=== PATIENT | male | born 1935 | race Caucasian/White ===

== ENCOUNTER 2019-01-08 23:10 | Inpatient (IN) | payer MEDICARE, BC ==
[2019-01-08 23:37] LABS: VENOUS BLOOD HCO3 27.3 mmol/L (20-32); VENOUS BLOOD PCO2 55.4 mmHg (35-63); VENOUS BLOOD PH 7.31 (7.30-7.42)
[2019-01-08 23:41] LABS: INTERNATIONAL RATION (INR) 1.04; PROTHROMBIN TIME 13.6 SEC (11.4-15.4)
[2019-01-08 23:48] LABS: ABSOLUTE LYMPHOCYTES (AUTO) 0.3 10^3/uL (0.5-4.7); ABSOLUTE MONOCYTES (AUTO) 0.3 10^3/uL (0.1-1.4); ABSOLUTE NEUT (AUTO) 5.5 10^3/uL (1.7-8.2); BASOPHILS % (AUTO) 0.3 % (0-2); HEMATOCRIT 40.8 % (37.9-51.0); HEMOGLOBIN 13.8 g/dL (13.5-17.0); LYMPHOCYTES % (AUTO) 5.1 % (13-45); MEAN CORPUSCULAR HEMOGLOBIN 31.7 pg (27.0-33.4); MEAN CORPUSCULAR HGB CONC 33.9 g/dL (32.0-36.0); MEAN CORPUSCULAR VOLUME 94 fl (80-97); RED BLOOD COUNT 4.36 10^6/uL (4.35-5.55); RED CELL DISTRIBUTION WIDTH 14.1 % (11.5-14.0); SEGMENTED NEUTROPHILS % (AUTO) 89.6 % (42-78); TOTAL CELLS COUNTED % (AUTO) 100 %; WHITE BLOOD COUNT 6.2 10^3/uL (4.0-10.5)
[2019-01-08 23:50] LABS: ALKALINE PHOSPHATASE 62 U/L (38-126); ANION GAP 13 (5-19); ASPARTATE AMINO TRANSFERASE 51 U/L (17-59); BILIRUBIN,DIRECT 0.2 mg/dL (0.0-0.4); BILIRUBIN,TOTAL 0.7 mg/dL (0.2-1.3); BLOOD UREA NITROGEN 31 mg/dL (7-20); CALCIUM 8.8 mg/dL (8.4-10.2); CARBON DIOXIDE 27 mmol/L (22-30); CHLORIDE 98 mmol/L (98-107); GLUCOSE 262 mg/dL (75-110); POTASSIUM 3.9 mmol/L (3.6-5.0); TOTAL PROTEIN 6.9 g/dL (6.3-8.2)
[2019-01-09 00:11] LABS: PLATELET COUNT 90 10^3/uL (150-450)
--- NOTE | 2019-01-09 00:18 | ER Document Report ---
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 They said a few d/a he s tarted having URI sx, predominantly productive cough. says he began self- prescribed z-pack 2 d/a, but started having fevers anyway. but it was last night fam members noticed strange behavior i.e. pt seemed unsteady on feet, poor appetite, intermittent periods of not making sense. last night he needed significant help standing from bathtub & getting out. He has had 2 falls in last 2 nights which says he seemed to slump to his butt when trying 2 transfer from bed to walk to the bathroom. also says he usually only takes One oxycodone a day (rx'd by his [facility] docs), but that in last few days he's had more pain and has taken two times a day she thinks. times of confusion they say instead of correctly responds to ?'s, he'll start talking about another topic briefly then seems to lose attention. no other falls/direct head impacts, no blood thinner use. deny any (regular) etoh use, any new (otc) meds. there had been no complaints of headache, vision change, witnessed facial droop or focal neuro deficits, urinary changes, bowel changes, complaints of abd pain before he became more increasingly confused. - Related Data Allergies/Adverse Reactions: No Known Allergies Allergy (Unverified 01/08/19 23:42) Home Medications: oxycodone (unknown dose) Past Medical History - General Information source: Relative - see hpi - Social History Smoking Status: Never Smoker Family History: Reviewed & Not Pertinent Patient has suicidal ideation: No Patient has homicidal ideation: No Past Surgical History: Reports: Hx Orthopedic Surgery - back and ankle Review of Systems - Review of Systems Constitutional: See HPI, Fever, Weakness. denies: Chills, Diaphoresis, Recent illness EENT: See HPI Cardiovascular: denies: Chest pain, Orthopnea, Syncope, Dizziness, Paroxysmal Nocturnal Dysp Respiratory: Cough, Short of breath. denies: Wheezing Gastrointestinal: No symptoms reported, See HPI Genitourinary: No symptoms reported, See HPI Male Genitourinary: No symptoms reported, See HPI Musculoskeletal: No symptoms reported, See HPI, Back pain Skin: No symptoms reported. denies: Change in color, Rash Hematologic/Lymphatic: denies: Easy bleeding, Easy bruising Neurological/Psychological: Confusion, Weakness. denies: Depression, Anxiety, Hallucinations, Paralysis, Seizure, Lost consciousness, Headaches Physical Exam - Vital signs Vitals: Resp 18 01/08/19 23:12 Notes: pt initially ~92-94% on 1L spo2. - General Notes: fully alert can answer appropriately initially then starts mumbling and playing w/ spo2/cardiac wires. at one point trying to get out of bed ultimatly redirected by fam members, mild tachypnea on 1L nc no other no other noted distress. - HEENT Head: Normocephalic, Atraumatic. No: Tenderness Eyes: No: Pale conjunctiva, Periorbital ecchymosis, Scleral icterus Conjunctiva: No: Injected Extraocular movements intact: Yes Pupils: PERRL Nerve palsy: No Visual davenport normal: Yes - grossly 2 confrontation Tympanic membrane: No: Bulging, Injected, Purulent effusion Sinus: No: Frontal, Mastoid, Tenderness Nasal: Normal Mouth/Lips: Normal Mucous membranes: Dry Pharynx: Normal Neck: Normal, Supple - Respiratory Respiratory status: Tachypnea. No: Agonal respirations, Depressed respirations, Pursed lip breathing, Retractions, Tripod position Chest status: Nontender. No: Ecchymosis, Accessory muscle use, Prolonged expirations, Splinting Breath sounds: Nonproductive cough, Rhonchi. No: Decreased air movement, Wheezing Chest palpation: Normal - Cardiovascular Rhythm: Regular Heart sounds: S1 appreciated, S2 appreciated Murmur: No Gallop: None auscultated Pulses: Normal: Radial, Dorsalis pedis Normal capillary refill: Yes - Abdominal Inspection: Normal Distension: No distension Tenderness: Nontender, McBurney's point. No: Fabian's sign, Guarding, Rebound Organomegaly: No organomegaly - Back Back: No: Deformity/step-off, CVA tenderness, Vertebra tenderness, Wounds - Extremities General upper extremity: Normal inspection General lower extremity: Normal inspection - Neurological Cognition: Inattentive May Coma Scale Eye Opening: Spontaneous Ranson Coma Scale Verbal: Inappropriate Ranson Coma Scale Motor: Obeys Commands May Coma Scale Total: 13 Speech: No: Dysarthria, Expressive aphasia, Receptive aphasia Cranial nerves: No: Facial palsy, Gaze palsy Cerebellar coordination: Other - unable to fully follow commands for assessment f to n, h to [place], didn't ambulate pt 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 No: Pronator drift - Psychological Associated symptoms: Restlessness. No: Combative Course - Re-evaluation Re-evalutation: 01/10/19 20:03 inc to 2L at time i examined =>~98%. was given acetaminophen for fever by [facility], but i could not find that ems had reported any hypoxia or gave any other Rxs 01/10/19 20:04 - Vital Signs Vital signs: Temp Pulse Resp BP Pulse Ox 97.6 F 71 17 126/74 H 95 01/10/19 17:00 01/10/19 17:00 01/10/19 17:00 01/10/19 17:00 01/10/19 17:00 - Laboratory Result Diagrams: 01/10/19 04:43 01/10/19 04:43 Laboratory results interpreted by me: 01/08/19 01/08/19 01/08/19 23:15 23:15 23:15 RDW 14.1 H Plt Count 90 L Lymph % (Auto) 5.1 L Absolute Lymphs (auto) 0.3 L Seg Neutrophils % 89.6 H BUN 31 H Creatinine 1.94 H Est GFR ( Amer) 40 L Est GFR (MDRD) Non-Af 33 L Glucose 262 H POC Glucose Lactic Acid (Sepsis) 2.8 H 01/08/19 01/09/19 23:39 02:37 RDW Plt Count Lymph % (Auto) Absolute Lymphs (auto) Seg Neutrophils % BUN Creatinine Est GFR ( Amer) Est GFR (MDRD) Non-Af Glucose POC Glucose 266 H Lactic Acid (Sepsis) 3.1 H - Diagnostic Test Radiology reviewed: Image reviewed, Reports reviewed Radiology results interpreted by me: 01/10/19 20:07 my interpretatino of 2v cxr is on lateral view basilar consolidation present c/f infiltrate and PNA - EKG Interpretation by Me Additional EKG results interpreted by me: 01/09/19 00:18 EKG reviewed is normal sinus rhythm time as [address] is borderline prolonged but within normal limits at 200 potentially is borderline axis deviation to the left there is no prior for comparison no ST elevations depressions or other patterns of ischemia voltage within normal limits will just wait to interview patient myself very nonspecific but inferior T wave flattening without reciprocal change but will consider any type of ACS in this older gentleman with delirium - Transfer of Care Notes: 01/10/19 20:09 dr bullard accepted for med floor adm. also gave 600 ibu for cont fever (102.5 under tongue), and ctx 1g iv for suspected source of CAP. Discharge - Discharge Clinical Impression: Delirium due to another medical condition, acute, mixed level of activity, suspected pneumonia, Acute respiratory failure with hypoxia, Multiple falls Fever Qualifiers: Encounter type: initial encounter Chronic back pain Qualifiers: Back pain location: back pain in unspecified location Back pain laterality: unspecified Qualified Code(s): M54.9 - Dorsalgia, unspecified Condition: Fair Disposition: ADMITTED INPATIENT Admitting Provider: Morro (Hospitalist) Unit Admitted: Medical Floor
--- NOTE | 2019-01-09 00:56 | RADIOLOGY REPORT (SQ) ---
CLINICAL HISTORY: cough, SOB COMPARISON: None. TECHNIQUE: XR CHEST 2 VIEWS 01/08/2019 11:28 PM TRAIN ATTENDANT FINDINGS: The heart is enlarged. Lungs are clear without consolidation, atelectasis, mass or edema. There is no pleural effusion. There is no pneumothorax. Extensive thoracolumbar fusion was performed. IMPRESSION: Clear lungs.
[2019-01-09] MEDS ORDERED: RINGERS SOLUTION,LACTATED 1,000 ML IV ONE (01:06)
[2019-01-09] MEDS ORDERED: CEFTRIAXONE INJ 1000 MG VIAL IV ONE (01:08)
[2019-01-09 01:55] LABS: A TYPE INFLUENZA AG NEGATIVE (NEGATIVE); B INFLUENZA AG NEGATIVE (NEGATIVE)
[2019-01-09] MEDS ORDERED: IBUPROFEN 600 MG TABLET PO ONE (02:03)
[2019-01-09] MEDS ORDERED: ONDANSETRON HCL INJ/PF 4 MG/2 ML SDV IV PRN (02:42)
[2019-01-09] MEDS ORDERED: MAG HYDROX/AL HYDROX/SIMETH SUSP 30 ML UDCUP PO PRN (02:42)
[2019-01-09] MEDS ORDERED: LEVALBUTEROL HCL NEB 0.63 MG/3 ML AMPUL NEB PRN (02:42)
[2019-01-09] MEDS ORDERED: RINGERS SOLUTION,LACTATED 1,000 ML IV PRN (02:42)
[2019-01-09] MEDS ORDERED: MAGNESIUM HYDROXIDE SUSP 30 ML UDCUP PO PRN (02:42)
[2019-01-09] MEDS ORDERED: GLUCAGON,HUMAN RECOMB 1 MG INJ IM PRN (02:49)
[2019-01-09] MEDS ORDERED: MORPHINE SULFATE 10 MG/ML INJ IV PRN ×3 (02:49)
[2019-01-09] MEDS ORDERED: DEXTROSE 40% GEL 15 GM TUBE PO PRN ×2 (02:49)
[2019-01-09] MEDS ORDERED: DEXTROSE 50%-WATER 25 GM/50 ML DISP.SYRIN IV PRN ×2 (02:49)
[2019-01-09] MEDS ORDERED: ACETAMINOPHEN 325 MG TABLET PO PRN (02:49)
[2019-01-09] MEDS ORDERED: LORAZEPAM INJ 2 MG/1 ML VIAL IV PRN (02:50)
[2019-01-09] MEDS ORDERED: IBUPROFEN 800 MG TABLET PO PRN (02:51)
[2019-01-09] MEDS ORDERED: AZITHROMYCIN INJ 500 MG VIAL IV PRN (03:00)
--- NOTE | 2019-01-09 03:41 | PDOC H&P ---
History of Present Illness Admission Date/PCP: 01/09/2019 02:22 No local PCP Patient complains of: Cough History of Present Illness: EVELYNE MUNROE is a 83 year old male who presented to the emergency room with a 5-day history of a cough. He and his family admit to a progressively worsening cough with associated dyspnea, worsening on exertion, over the last 3 days with the development of an associated fever and an accompanying progressively worsening delirium over the last 72 hours. They admit to associated decreased oral intake, off-balance falls and generalized weakness over the last 48 hours. 3 days ago he initiated self treatment with Zithromax. They deny other associated or accompanying signs and symptoms. They deny prior similar episodes. Have not identified any additional aggravating or ameliorating factors for his cough. In the emergency room he was found to have a mild hypoxia with an O2 sat in the low 90s on 1 L of oxygen per nasal cannula and a low-grade fever. He was subsequently admitted to the hospital for further evaluation and treatment. Past Medical History Cardiac Medical History: Denies: Coronary Artery Disease, Myocardial Infarction, Hyperlipidema, Hypertension Pulmonary Medical History: Denies: Asthma, Chronic Obstructive Pulmonary Disease (COPD) EENT Medical History: Reports: Nose - Seasonal allergic rhinitis Denies: Cataracts, Ears Neurological Medical History: Denies: Hemorrhagic CVA, Ischemic CVA, Seizures Endocrine Medical History: Denies: Diabetes Mellitus Type 1, Diabetes Mellitus Type 2, Hyperthyroidism, Hypothyroidism, Obesity Renal/ Medical History: Reports: Nephrolithiasis Denies: Chronic Kidney Disease Malignancy Medical History: Reports: None GI Medical History: Denies: Cirrhosis, Crohn's Disease, Hepatitis, Ulcerative Colitis Musculoskeltal Medical History: Reports: Arthritis - Severe spinal arthritis, osteoarthritis of multiple joints, Other - Chronic pain due to arthritis Denies: Gout Skin Medical History: Denies: Eczema, Psoriasis Psychiatric Medical History: Denies: Alcohol Dependency, Substance Abuse, Tobacco Dependency Traumatic Medical History: Reports: None Hematology: Denies: Anemia, Bleeding Tendencies Infectious Medical History: Reports: None Past Surgical History Past Surgical History: Reports: Orthopedic Surgery - Back surgeries x5, bilateral knee surgeries and left ankle surgery Social History Information Source: Patient, Relative Lives with: Spouse/Significant other Smoking Status: Never Smoker Electronic Cigarette use?: No Frequency of Alcohol Use: None Hx Recreational Drug Use: No Drugs: None Hx Prescription Drug Abuse: No - Advance Directive Resuscitation Status: Full Code Surrogate healthcare decision maker:: Raya Munroe Family History Family History: COPD, Malignancy. denies: DM Parental Family History Reviewed: Yes Children Family History Reviewed: No Sibling(s) Family History Reviewed.: Yes Medication/Allergy Allergies/Adverse Reactions: No Known Allergies Allergy (Unverified 01/08/19 23:42) Review of Systems Constitutional: PRESENT: as per HPI, anorexia, fever(s). ABSENT: chills, headache(s) Eyes: ABSENT: visual disturbances, other - Eye pain Ears: ABSENT: hearing changes, other - Ear pain Nose, Mouth, and Throat: ABSENT: mouth pain, sore throat Cardiovascular: PRESENT: as per HPI, dyspnea on exertion. ABSENT: chest pain Respiratory: PRESENT: as per HPI, cough, dyspnea Gastrointestinal: PRESENT: other - Decreased oral intake. ABSENT: abdominal pain, constipation, diarrhea, nausea, vomiting Genitourinary: ABSENT: dysuria, hematuria Musculoskeletal: PRESENT: back pain - Chronic. ABSENT: joint swelling, muscle weakness Integumentary: ABSENT: pruritus, rash Neurological: PRESENT: as per HPI, confusion - Delirium, other - Of balance falls. ABSENT: convulsions, focal weakness, memory loss, syncope Psychiatric: ABSENT: anxiety, depression Endocrine: ABSENT: cold intolerance, heat intolerance Hematologic/Lymphatic: ABSENT: easy bleeding, easy bruising Allergic/Immunologic: ABSENT: seasonal rhinorrhea Physical Exam Vital Signs: Temp Pulse Resp BP Pulse Ox 102.5 F H 102 H 22 H 102/55 L 96 01/09/19 01:32 01/08/19 23:15 01/09/19 02:07 01/09/19 02:07 01/09/19 02:07 Intake & Output 01/07/19 01/08/19 01/09/19 23:59 23:59 23:59 Weight 89 kg General appearance: PRESENT: no acute distress, cooperative Head exam: PRESENT: atraumatic, normocephalic Eye exam: PRESENT: conjunctiva pink. ABSENT: conjunctival injection, scleral icterus Ear exam: PRESENT: normal external ear exam. ABSENT: bleeding, drainage Mouth exam: PRESENT: dry mucosa, neck supple Neck exam: ABSENT: thyromegaly, tracheal deviation Respiratory exam: PRESENT: clear to auscultation jason, symmetrical, unlabored Cardiovascular exam: PRESENT: RRR. ABSENT: clicks, gallop, rubs Pulses: PRESENT: normal radial pulses, normal dorsalis pedis pul Vascular exam: PRESENT: normal capillary refill. ABSENT: pallor GI/Abdominal exam: PRESENT: normal bowel sounds, soft Rectal exam: PRESENT: deferred Extremities exam: ABSENT: joint swelling, pedal edema Musculoskeletal exam: ABSENT: deformity, dislocation Neurological exam: PRESENT: alert, altered - Easily confused and distracted, CN II-XII grossly intact Psychiatric exam: PRESENT: appropriate affect, normal mood Skin exam: PRESENT: dry, intact, warm. ABSENT: jaundice, rash, urticaria Results Laboratory Results: 01/08/19 23:15 01/08/19 23:15 01/08/19 01/08/19 01/08/19 23:15 23:15 23:15 WBC 6.2 RBC 4.36 Hgb 13.8 Hct 40.8 MCV 94 MCH 31.7 MCHC 33.9 RDW 14.1 H Plt Count 90 L Seg Neutrophils % 89.6 H VBG pH 7.31 VBG pCO2 55.4 VBG HCO3 27.3 VBG Base Excess 0 Sodium 138.4 Potassium 3.9 Chloride 98 Carbon Dioxide 27 Anion Gap 13 BUN 31 H Creatinine 1.94 H Est GFR ( Amer) 40 L Glucose 262 H Calcium 8.8 Total Bilirubin 0.7 AST 51 Alkaline Phosphatase 62 Total Protein 6.9 Albumin 4.0 01/08/19 23:15 Troponin I 0.015 Impressions: Chest X-Ray 01/08/19 23:28 IMPRESSION: Clear lungs. Assessment and Plan - Diagnosis (1) Acute febrile illness Is this a current diagnosis for this admission?: Yes (2) Acute respiratory failure with hypoxia Is this a current diagnosis for this admission?: Yes (3) Nonproductive cough Is this a current diagnosis for this admission?: Yes (4) Delirium due to another medical condition, acute, hypoactive Is this a current diagnosis for this admission?: Yes (5) Multiple falls Is this a current diagnosis for this admission?: Yes (6) Elevated lactic acid level Is this a current diagnosis for this admission?: Yes (7) SIRS (systemic inflammatory response syndrome) Is this a current diagnosis for this admission?: Yes (8) Chronic back pain Qualifiers: Back pain location: back pain in unspecified location Back pain laterality: unspecified Qualified Code(s): M54.9 - Dorsalgia, unspecified; G89.29 - Other chronic pain Is this a current diagnosis for this admission?: Yes (9) Elevated random blood glucose level Is this a current diagnosis for this admission?: Yes - Plan Summary Summary: Patient will be admitted to a general medical bed and treated with IV fluids and antibiotic therapy including Rocephin and azithromycin. He will be monitored closely on a clinical basis and will be evaluated with daily metabolic profiles and CBCs. He will receive supplemental oxygen via nasal cannula as required to maintain an O2 sat greater than 93%. Oxygen saturations will be checked frequently. His fever be treated with Tylenol as required. His delirium will be treated with Ativan 1 mg IV every 4 hours as needed for agitation or anxiety. Morphine sulfate 2 to 4 mg IV every 2 hours will be administered on as-needed basis for pain control utilizing a sliding scale for his chronic back pain. Hemoglobin A1c will be obtained and a diabetic diet will be ordered. The patient will be treated with Accu-Cheks before meals and at bedtime with sliding scale insulin for hyperglycemia and a hypoglycemic protocol in place. - Time Time Spent with patient: 25-34 minutes Medications reviewed and adjusted accordingly: Yes Anticipated discharge: Home - Inpatient Certification Based on my medical assessment, after consideration of the patient's comorbidities, presenting symptoms, or acuity I expect that the services needed warrant INPATIENT care.: Yes I certify that my determination is in accordance with my understanding of Medicare's requirements for reasonable and necessary INPATIENT services [42 CFR 412.3e].: Yes Medical Necessity: Need Close Monitoring Due to Risk of Patient Decompensation, Need For IV Fluids, Need for Neurological Checks, Need for IV Antibiotics, Risk of Complication if Not Cared For in Hospital, Risk of Diagnosis Which Will Require Inpatient Eval/Care/Monitoring
[2019-01-09] MEDS ORDERED: AZITHROMYCIN 500 MG in DEXTROSE 5%-WATER 250 ML IV SCH ×2 (06:00→08:00)
[2019-01-09] MEDS: HEPARIN SOD (PORCINE) 5,000 UNIT/ML 1 ML VIAL SUBCUT SCH ×3 (07:04→22:08)
[2019-01-09 07:05] LABS: VENOUS BLOOD BASE EXCESS -2.7 mmol/L; VENOUS BLOOD HCO3 22.6 mmol/L (20-32); VENOUS BLOOD PCO2 40.9 mmHg (35-63); VENOUS BLOOD PH 7.36 (7.30-7.42)
--- NOTE | 2019-01-09 08:38 | Progress Note ---
Provider Note Provider Note: 01/09/2019-patient admitted early a.m. I reviewed labs and assessed patient. I will continue to follow make change plan of care based on patient needs.
[2019-01-09] MEDS: DOCUSATE SODIUM 100 MG CAPSULE PO SCH ×2 (09:33→18:34)
[2019-01-09] MEDS: AZITHROMYCIN 500 MG in DEXTROSE 5%-WATER 250 ML IV SCH (09:33)
[2019-01-09] MEDS: FAMOTIDINE 20 MG TABLET PO SCH ×2 (09:33→22:12)
[2019-01-09] MEDS: INSULIN REG, HUMAN 100 UNIT/ML 3 ML VIAL (PYX) SUBCUT SCH ×4 (09:36→22:11)
[2019-01-09] MEDS ORDERED: NORMAL SALINE 1000 ML 500 ML IV PRN (12:08)
[2019-01-09] MEDS ORDERED: NORMAL SALINE 500 ML IV PRN (12:09)
[2019-01-09] MEDS ORDERED: NORMAL SALINE 1000 ML 1,000 ML IV PRN ×2 (12:10→17:19)
[2019-01-09] MEDS: CEFTRIAXONE 1 GM/D5W RTU 1 GM/50 ML RTUPB IV SCH (22:13)
[2019-01-10] MEDS: HEPARIN SOD (PORCINE) 5,000 UNIT/ML 1 ML VIAL SUBCUT SCH ×3 (05:18→21:19)
[2019-01-10 05:21] LABS: HEMATOCRIT 36.2 % (37.9-51.0); HEMOGLOBIN 12.6 g/dL (13.5-17.0); MEAN CORPUSCULAR HEMOGLOBIN 31.9 pg (27.0-33.4); MEAN CORPUSCULAR HGB CONC 34.7 g/dL (32.0-36.0); MEAN CORPUSCULAR VOLUME 92 fl (80-97); RED BLOOD COUNT 3.93 10^6/uL (4.35-5.55); WHITE BLOOD COUNT 8.1 10^3/uL (4.0-10.5)
[2019-01-10 05:24] LABS: VENOUS BLOOD BASE EXCESS -2.1 mmol/L; VENOUS BLOOD HCO3 22.7 mmol/L (20-32); VENOUS BLOOD PCO2 39.6 mmHg (35-63); VENOUS BLOOD PH 7.38 (7.30-7.42)
[2019-01-10 05:43] LABS: ALKALINE PHOSPHATASE 57 U/L (38-126); ANION GAP 8 (5-19); ASPARTATE AMINO TRANSFERASE 83 U/L (17-59); BILIRUBIN,DIRECT 0.3 mg/dL (0.0-0.4); BILIRUBIN,TOTAL 0.5 mg/dL (0.2-1.3); BLOOD UREA NITROGEN 30 mg/dL (7-20); CALCIUM 8.1 mg/dL (8.4-10.2); CARBON DIOXIDE 25 mmol/L (22-30); CHLORIDE 108 mmol/L (98-107); GLUCOSE 91 mg/dL (75-110); POTASSIUM 3.4 mmol/L (3.6-5.0); TOTAL PROTEIN 5.7 g/dL (6.3-8.2)
[2019-01-10 05:50] LABS: PLATELET COUNT 81 10^3/uL (150-450)
[2019-01-10] MEDS ORDERED: OXYCODONE HCL IR 5 MG TABLET PO PRN (08:47)
[2019-01-10] MEDS ORDERED: POTASSIUM CHLORIDE 10 MEQ TABLET.ER PO ONE (08:51)
--- NOTE | 2019-01-10 08:55 | PDOC PROGRESS REPORT ---
Subjective Progress Note for:: 01/10/19 Subjective:: 01/10/2019-right hip pain Reason For Visit: COUGH,FEVER,DELIRIUM,ELEVATED LACTIC ACID,SIRS Physical Exam Vital Signs: Temp Pulse Resp BP Pulse Ox 98.4 F 65 16 89/49 L 96 01/09/19 16:23 01/09/19 18:43 01/09/19 18:43 01/09/19 16:23 01/10/19 04:22 Intake & Output 01/09/19 01/10/19 01/11/19 06:59 06:59 06:59 Intake Total 1300 4286 Output Total 1050 Balance 1300 3236 Weight 88.6 kg 92.8 kg General appearance: PRESENT: no acute distress, well-developed, well-nourished Neck exam: ABSENT: carotid bruit, JVD, lymphadenopathy, thyromegaly Respiratory exam: PRESENT: decreased breath sounds, symmetrical, unlabored Cardiovascular exam: PRESENT: RRR. ABSENT: diastolic murmur, rubs, systolic murmur Pulses: PRESENT: +1 pedal pulses bilateral Vascular exam: PRESENT: normal capillary refill GI/Abdominal exam: PRESENT: normal bowel sounds, soft. ABSENT: distended, guarding, mass, organolmegaly, rebound, tenderness Extremities exam: PRESENT: full ROM. ABSENT: calf tenderness, clubbing, pedal edema Neurological exam: PRESENT: alert, awake, oriented to person, oriented to place, oriented to time, oriented to situation, CN II-XII grossly intact. ABSENT: motor sensory deficit Psychiatric exam: PRESENT: appropriate affect, normal mood. ABSENT: homicidal ideation, suicidal ideation Skin exam: PRESENT: dry, intact, warm. ABSENT: cyanosis, rash Results Laboratory Results: 01/10/19 04:43 01/10/19 04:43 01/09/19 01/09/19 01/10/19 08:08 11:32 04:43 WBC 8.1 RBC 3.93 L Hgb 12.6 L Hct 36.2 L MCV 92 MCH 31.9 MCHC 34.7 RDW 14.0 Plt Count 81 L VBG pH VBG pCO2 VBG HCO3 VBG Base Excess Sodium Potassium Chloride Carbon Dioxide Anion Gap BUN Creatinine Est GFR ( Amer) Glucose Lactic Acid 1.2 1.5 Calcium Magnesium Total Bilirubin AST Alkaline Phosphatase Total Protein Albumin 01/10/19 01/10/19 04:43 04:43 WBC RBC Hgb Hct MCV MCH MCHC RDW Plt Count VBG pH 7.38 VBG pCO2 39.6 VBG HCO3 22.7 VBG Base Excess -2.1 Sodium 140.9 Potassium 3.4 L Chloride 108 H Carbon Dioxide 25 Anion Gap 8 BUN 30 H Creatinine 1.48 H Est GFR ( Amer) 55 L Glucose 91 Lactic Acid Calcium 8.1 L Magnesium 1.7 Total Bilirubin 0.5 AST 83 H Alkaline Phosphatase 57 Total Protein 5.7 L Albumin 3.0 L 01/08/19 23:15 Troponin I 0.015 Impressions: Chest X-Ray 01/08/19 23:28 IMPRESSION: Clear lungs. Assessment and Plan - Diagnosis (1) Acute febrile illness Is this a current diagnosis for this admission?: Yes Plan: 01/10/2019-resolved at this time looks like mostly related to viral infection. Continue to follow. (2) Acute respiratory failure with hypoxia Is this a current diagnosis for this admission?: Yes Plan: 01/10/2019-resolved stable continue to follow patient on 2 L nasal cannula able speak in full sentences. (3) Chronic back pain Qualifiers: Back pain location: back pain in unspecified location Back pain laterality: unspecified Qualified Code(s): M54.9 - Dorsalgia, unspecified; G89.29 - Other chronic pain Is this a current diagnosis for this admission?: Yes Plan: 01/10/2019-continue OxyIR 10 mg p.o. twice daily from home (4) Delirium due to another medical condition, acute, hypoactive Is this a current diagnosis for this admission?: Yes Plan: 01/10/2019-resolved continue to follow (5) Elevated lactic acid level Is this a current diagnosis for this admission?: Yes Plan: 01/10/2019-resolved stable (6) Elevated random blood glucose level Is this a current diagnosis for this admission?: Yes Plan: 01/10/2019-stable continue to follow (7) Multiple falls Is this a current diagnosis for this admission?: Yes Plan: 01/10/2019-. Had multiple falls at home complains of right hip pain. Continue oxycodone IR from home will obtain a x-ray of the right hip to rule out any pathology. (8) Nonproductive cough Is this a current diagnosis for this admission?: Yes Plan: 01/01/2019-stable continue to follow (9) SIRS (systemic inflammatory response syndrome) Is this a current diagnosis for this admission?: Yes Plan: 01/10/2019-resolved stable follow - Plan Summary Summary: Patient will be admitted to a general medical bed and treated with IV fluids and antibiotic therapy including Rocephin and azithromycin. He will be monitored closely on a clinical basis and will be evaluated with daily metabolic profiles and CBCs. He will receive supplemental oxygen via nasal cannula as required to maintain an O2 sat greater than 93%. Oxygen saturations will be checked jhon quently. His fever be treated with Tylenol as required. His delirium will be treated with Ativan 1 mg IV every 4 hours as needed for agitation or anxiety. Morphine sulfate 2 to 4 mg IV every 2 hours will be administered on as-needed basis for pain control utilizing a sliding scale for his chronic back pain. Hemoglobin A1c will be obtained and a diabetic diet will be ordered. The patient will be treated with Accu-Cheks before meals and at bedtime with sliding scale insulin for hyperglycemia and a hypoglycemic protocol in place. - Time Time Spent with patient: 15-24 minutes - Inpatient Certification Based on my medical assessment, after consideration of the patient's comorbidities, presenting symptoms, or acuity I expect that the services needed warrant INPATIENT care.: Yes I certify that my determination is in accordance with my understanding of Medicare's requirements for reasonable and necessary INPATIENT services [42 CFR 412.3e].: Yes Medical Necessity: Significant Comorbidiites Make Outpatient Treatment Too Risky, Need Close Monitoring Due to Risk of Patient Decompensation, Need for IV Antibiotics
[2019-01-10] MEDS: DOCUSATE SODIUM 100 MG CAPSULE PO SCH ×2 (09:21→17:12)
[2019-01-10] MEDS: INSULIN REG, HUMAN 100 UNIT/ML 3 ML VIAL (PYX) SUBCUT SCH ×4 (09:22→21:19)
[2019-01-10] MEDS: FAMOTIDINE 20 MG TABLET PO SCH ×2 (09:23→21:26)
[2019-01-10] MEDS: AZITHROMYCIN 500 MG in DEXTROSE 5%-WATER 250 ML IV SCH (09:24)
--- NOTE | 2019-01-10 12:10 | RADIOLOGY REPORT (SQ) ---
EXAM DESCRIPTION: HIP RIGHT AP/LATERAL COMPLETED DATE/TIME: 01/10/2019 11:37 am REASON FOR STUDY: right hip pain after fall COMPARISON: None. NUMBER OF VIEWS: Two views. TECHNIQUE: AP pelvis and additional frog-leg view of the right hip. LIMITATIONS: None. FINDINGS: MINERALIZATION: Normal. RIGHT HIP: No fracture or dislocation. No worrisome bone lesions. LEFT HIP: No fracture or dislocation. No worrisome bone lesions. PUBIS AND ISCHIUM: No fracture. PELVIS: No fracture. SACRUM: No fracture or dislocation. No worrisome bone lesions. LOWER LUMBAR SPINE: Fusion hardware SOFT TISSUES: No findings. OTHER: No other significant finding. IMPRESSION: No acute fracture or malalignment right hip. Bony pelvis grossly intact. TECHNICAL DOCUMENTATION: JOB ID: [id number] [employer]- All Rights Reserved Reading location - IP/workstation name: [facility]
--- NOTE | 2019-01-10 12:12 | EKG REPORT ---
SEVERITY:- BORDERLINE ECG - SINUS RHYTHM PROBABLE LEFT ATRIAL ABNORMALITY BORDERLINE LEFT AXIS DEVIATION BORDERLINE T ABNORMALITIES, INFERIOR LEADS : Confirmed by: Anil Green 10-Jan-2019 12:10:07
--- NOTE | 2019-01-10 17:01 | RADIOLOGY REPORT (SQ) ---
EXAM DESCRIPTION: CHEST SINGLE VIEW COMPLETED DATE/TIME: 01/10/2019 4:47 pm REASON FOR STUDY: fever COMPARISON: None. EXAM PARAMETERS: NUMBER OF VIEWS: One view. TECHNIQUE: Single frontal radiographic view of the chest acquired. RADIATION DOSE: NA LIMITATIONS: None. FINDINGS: LUNGS AND PLEURA: Bilateral mild lower lung airspace disease, new findings, may represent infiltrates. No pneumothorax or pleural effusion. MEDIASTINUM AND HILAR STRUCTURES: No masses. Contour normal. HEART AND VASCULAR STRUCTURES: Heart normal in size. Normal vasculature. BONES: No acute findings. HARDWARE: Extensive hardware thoracolumbar fusion. OTHER: No other significant finding. IMPRESSION: 1. Since the prior examination dated 01/09/2019, bilateral mild airspace disease in the lower lungs, may represent infiltrates. TECHNICAL DOCUMENTATION: JOB ID: [id number] [employer]- All Rights Reserved Reading location - IP/workstation name: [email or web address]
[2019-01-10] MEDS ORDERED: ZIPRASIDONE HCL 20 MG CAPSULE PO ONE (21:00)
[2019-01-10] MEDS: CEFTRIAXONE 1 GM/D5W RTU 1 GM/50 ML RTUPB IV SCH (21:26)
[2019-01-11] MEDS: HEPARIN SOD (PORCINE) 5,000 UNIT/ML 1 ML VIAL SUBCUT SCH ×3 (05:08→21:36)
[2019-01-11 05:10] LABS: HEMOGLOBIN 13.9 g/dL (13.5-17.0); MEAN CORPUSCULAR HEMOGLOBIN 31.8 pg (27.0-33.4); MEAN CORPUSCULAR HGB CONC 34.7 g/dL (32.0-36.0); MEAN CORPUSCULAR VOLUME 91 fl (80-97); PLATELET COUNT 108 10^3/uL (150-450); RED BLOOD COUNT 4.38 10^6/uL (4.35-5.55); WHITE BLOOD COUNT 6.1 10^3/uL (4.0-10.5)
[2019-01-11 05:13] LABS: ANION GAP 11 (5-19); BLOOD UREA NITROGEN 18 mg/dL (7-20); CARBON DIOXIDE 27 mmol/L (22-30); CHLORIDE 106 mmol/L (98-107); GLUCOSE 132 mg/dL (75-110); POTASSIUM 3.5 mmol/L (3.6-5.0)
[2019-01-11] MEDS: INSULIN REG, HUMAN 100 UNIT/ML 3 ML VIAL (PYX) SUBCUT SCH ×4 (08:09→21:36)
--- NOTE | 2019-01-11 08:52 | PDOC PROGRESS REPORT ---
Subjective Progress Note for:: 01/11/19 Subjective:: 01/10/2019-right hip pain 01/11/2019-no complaints this a.m. Reason For Visit: COUGH,FEVER,DELIRIUM,ELEVATED LACTIC ACID,SIRS Physical Exam Vital Signs: Temp Pulse Resp BP Pulse Ox 98.4 F 79 18 133/72 H 96 01/10/19 20:00 01/10/19 20:00 01/10/19 20:00 01/10/19 20:00 01/10/19 20:00 Intake & Output 01/10/19 01/11/19 01/12/19 06:59 06:59 06:59 Intake Total 4286 1583 Output Total 1050 1300 Balance 3236 283 Weight 92.8 kg 93.2 kg General appearance: PRESENT: no acute distress, well-developed, well-nourished Neck exam: ABSENT: carotid bruit, JVD, lymphadenopathy, thyromegaly Respiratory exam: PRESENT: decreased breath sounds, rhonchi, symmetrical, un labored Cardiovascular exam: PRESENT: RRR. ABSENT: diastolic murmur, rubs, systolic murmur Pulses: PRESENT: +1 pedal pulses bilateral Vascular exam: PRESENT: normal capillary refill GI/Abdominal exam: PRESENT: normal bowel sounds, soft. ABSENT: distended, guarding, mass, organolmegaly, rebound, tenderness Extremities exam: PRESENT: full ROM. ABSENT: calf tenderness, clubbing, pedal edema Neurological exam: PRESENT: awake, other - Pleasantly confused Psychiatric exam: PRESENT: appropriate affect, normal mood. ABSENT: homicidal ideation, suicidal ideation Skin exam: PRESENT: dry, intact, warm. ABSENT: cyanosis, rash Results Laboratory Results: 01/11/19 04:33 01/11/19 04:33 01/11/19 01/11/19 04:33 04:33 WBC 6.1 RBC 4.38 Hgb 13.9 Hct 40.0 MCV 91 MCH 31.8 MCHC 34.7 RDW 14.0 Plt Count 108 L Sodium 143.7 Potassium 3.5 L Chloride 106 Carbon Dioxide 27 Anion Gap 11 BUN 18 Creatinine 1.01 Est GFR ( Amer) > 60 Glucose 132 H Calcium 9.0 01/08/19 23:15 Troponin I 0.015 Impressions: Chest X-Ray 01/10/19 00:00 IMPRESSION: 1. Since the prior examination dated 01/09/2019, bilateral mild airspace disease in the lower lungs, may represent infiltrates. Hip/Pelvis X-Ray 01/10/19 00:00 IMPRESSION: No acute fracture or malalignment right hip. Bony pelvis grossly intact. Assessment and Plan - Diagnosis (1) Acute febrile illness Is this a current diagnosis for this admission?: Yes Plan: 01/10/2019-resolved at this time looks like mostly related to viral infection. Continue to follow. 01/11/2019-continue to follow stable (2) Acute respiratory failure with hypoxia Is this a current diagnosis for this admission?: Yes Plan: 01/10/2019-resolved stable continue to follow patient on 2 L nasal cannula able speak in full sentences. 01/11/2019-stable continue to follow (3) Chronic back pain Qualifiers: Back pain location: back pain in unspecified location Back pain laterality: unspecified Qualified Code(s): M54.9 - Dorsalgia, unspecified; G89.29 - Other chronic pain Is this a current diagnosis for this admission?: Yes Plan: 01/10/2019-continue OxyIR 10 mg p.o. twice daily from home 01/11/2019-continue OxyIR from home. (4) Delirium due to another medical condition, acute, hypoactive Is this a current diagnosis for this admission?: Yes Plan: 01/10/2019-resolved continue to follow 01/11/2019-yesterday afternoon patient became somewhat confused again. He is pleasantly confused but nonetheless I believe this mostly toxic encephalopathy from infection. The repeat chest x-ray showed bilateral infiltrate suggestive of pneumonia. I placed patient on appropriate antibiotic therapy. (5) Elevated lactic acid level Is this a current diagnosis for this admission?: Yes Plan: 01/10/2019-resolved stable 01/11/2019-stable (6) Elevated random blood glucose level Is this a current diagnosis for this admission?: Yes Plan: 01/10/2019-stable continue to follow 01/11/2019-stable at this time continue to follow (7) Multiple falls Is this a current diagnosis for this admission?: Yes Plan: 01/10/2019-. Had multiple falls at home complains of right hip pain. Continue oxycodone IR from home will obtain a x-ray of the right hip to rule out any pa thology. 01/11/2019-stable. X-ray of right hip showed no pathology. (8) Nonproductive cough Is this a current diagnosis for this admission?: Yes Plan: 01/01/2019-stable continue to follow 01/11/2019-stable (9) SIRS (systemic inflammatory response syndrome) Is this a current diagnosis for this admission?: Yes Plan: 01/10/2019-resolved stable follow 01/11/2019-stable - Plan Summary Summary: Patient will be admitted to a general medical bed and treated with IV fluids and antibiotic therapy including Rocephin and azithromycin. He will be monitored closely on a clinical basis and will be evaluated with daily metabolic profiles and CBCs. He will receive supplemental oxygen via nasal cannula as required to maintain an O2 sat greater than 93%. Oxygen saturations will be checked frequently. His fever be treated with Tylenol as required. His delirium will be treated with Ativan 1 mg IV every 4 hours as needed for agitation or anxiety. Morphine sulfate 2 to 4 mg IV every 2 hours will be administered on as-needed basis for pain control utilizing a sliding scale for his chronic back pain. Hemoglobin A1c will be obtained and a diabetic diet will be ordered. The patient will be treated with Accu-Cheks before meals and at bedtime with sliding scale insulin for hyperglycemia and a hypoglycemic protocol in place. - Time Time Spent with patient: 15-24 minutes - Inpatient Certification Based on my medical assessment, after consideration of the patient's comorbidities, presenting symptoms, or acuity I expect that the services needed warrant INPATIENT care.: Yes I certify that my determination is in accordance with my understanding of Medicare's requirements for reasonable and necessary INPATIENT services [42 CFR 412.3e].: Yes Medical Necessity: Need for IV Antibiotics
[2019-01-11] MEDS: AZITHROMYCIN 500 MG in DEXTROSE 5%-WATER 250 ML IV SCH (09:12)
[2019-01-11] MEDS: DOCUSATE SODIUM 100 MG CAPSULE PO SCH ×2 (09:13→17:08)
[2019-01-11] MEDS: FAMOTIDINE 20 MG TABLET PO SCH ×2 (09:13→21:46)
--- NOTE | 2019-01-11 11:32 | RADIOLOGY REPORT (SQ) ---
EXAM DESCRIPTION: CT HEAD WITHOUT COMPLETED DATE/TIME: 01/11/2019 10:23 am REASON FOR STUDY: altered mental status COMPARISON: None. TECHNIQUE: Axial images acquired through the brain without intravenous contrast. Images reviewed wi th bone, brain and subdural windows. Additional sagittal and coronal reconstructions were generated. Images stored on PACS. All CT scanners at this facility use dose modulation, iterative reconstruction, and/or weight based d osing when appropriate to reduce radiation dose to as low as reasonably achievable (ALARA). [facility]: Dose Right [facility]: CareDose [facility]: Dose Right [facility]: Teradose 4D [facility]: Smart MetaLINCS RADIATION DOSE: CT Rad equipment meets quality standard of care and radiation dose reduction techniq ues were employed. CTDIvol: 53.2 mGy. DLP: 1017 mGy-cm. mGy. LIMITATIONS: None. FINDINGS: VENTRICLES: Normal size and contour. CEREBRUM: No CT evidence of acute large territory ischemic change, acute intracranial hemorrhage, mas s effect, or midline shift. There is moderate bifrontal and biparietal chronic small vessel ischemic change in the hemispheric white matter CEREBELLUM: No masses. No hemorrhage. No alteration of density. No evidence for acute infarction. EXTRAAXIAL SPACES: No fluid collections. No masses. ORBITS AND GLOBE: No intra- or extraconal masses. Normal contour of globe without masses. CALVARIUM: No fracture. PARANASAL SINUSES: Diffuse mucous membrane thickening in the ethmoid and frontal sinuses. SOFT TISSUES: No mass or hematoma. OTHER: No other significant finding. IMPRESSION: Chronic white matter disease, no acute findings. EVIDENCE OF ACUTE STROKE: NO. COMMENT: Quality ID # [id number]: Final reports with documentation of one or more dose reduction techniques (e.g., Automated exposure control, adjustment of the mA and/or kV according to patient size, use of iterative reconstruction technique) TECHNICAL DOCUMENTATION: JOB ID: [id number] [employer]- All Rights Reserved Reading location - IP/workstation name: [email or web address]
[2019-01-11 16:36] LABS: APPEARANCE,URINE CLEAR; BILIRUBIN,URINE NEGATIVE (NEGATIVE); COLOR,URINE YELLOW; GLUCOSE, URINE NEGATIVE (NEGATIVE); KETONES,URINE NEGATIVE (NEGATIVE); LEUKOCYTE ESTERASE,URINE NEGATIVE (NEGATIVE); NITRITE,URINE NEGATIVE (NEGATIVE); PROTEIN,URINE 30 mg/dL (NEGATIVE); URINE SPECIFIC GRAVITY 1.012; UROBILINOGEN,URINE NEGATIVE mg/dL (<2.0)
[2019-01-11] MEDS: CEFTRIAXONE 1 GM/D5W RTU 1 GM/50 ML RTUPB IV SCH (21:50)
[2019-01-11] MEDS ORDERED: HALOPERIDOL LACTATE INJ 5 MG/1 ML VIAL IM PRN (23:40)
--- NOTE | 2019-01-12 01:49 | Progress Note ---
Provider Note Provider Note: Critical care: 01/12/2019 Critical care start time: 23:50 01/11/2019 Critical care issue: Agitation Patient's nurse contacted me because he was very agitated and hyperactive in his room with obvious paranoid delusions and possible hallucinations. Security was called and the patient was seen by myself. Patient calm down after security arrived in the room and returned to his bed from his position standing in the corner of the room in the nude. He continued to be verbally abusive and threatening toward the nursing staff and myself. He continued to have paranoid delusions and also showed evidence of poor orientation though he would not formally cooperate with a mental status exam. Chest showed scattered rhonchi throughout all [place] most prominent at the bases. Heart showed a regular rate and rhythm without murmurs clicks gallops or rubs. Extremities reveal no clubbing cyanosis or edema. Patient was placed in soft restraints on both arms and one leg. He was given Haldol 10 mg IM x1. Patient was observed and was noted to continue to calm and become somewhat more restrained in his interaction with the nursing staff and myself. He continued to be somewhat paranoid and continued to have a variety of delusions of grandeur. 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 Continued observation was performed the patient remained calm although he continued to require three-point soft restraints. Critical care end time: 01:48 01/12/2019 Total critical care time: 23 minutes
[2019-01-12 02:15] LABS: APPEARANCE,URINE CLEAR; BILIRUBIN,URINE NEGATIVE (NEGATIVE); COLOR,URINE STRAW; GLUCOSE, URINE NEGATIVE (NEGATIVE); KETONES,URINE TRACE mg/dL (NEGATIVE); PROTEIN,URINE 30 mg/dL (NEGATIVE); URINE SPECIFIC GRAVITY 1.006; UROBILINOGEN,URINE NEGATIVE mg/dL (<2.0)
[2019-01-12 05:34] LABS: HEMATOCRIT 39.4 % (37.9-51.0); HEMOGLOBIN 13.6 g/dL (13.5-17.0); MEAN CORPUSCULAR HEMOGLOBIN 31.7 pg (27.0-33.4); MEAN CORPUSCULAR HGB CONC 34.6 g/dL (32.0-36.0); MEAN CORPUSCULAR VOLUME 92 fl (80-97); PLATELET COUNT 122 10^3/uL (150-450); WHITE BLOOD COUNT 3.8 10^3/uL (4.0-10.5)
[2019-01-12 05:58] LABS: ANION GAP 10 (5-19); BLOOD UREA NITROGEN 15 mg/dL (7-20); CALCIUM 8.7 mg/dL (8.4-10.2); CARBON DIOXIDE 26 mmol/L (22-30); CHLORIDE 106 mmol/L (98-107); GLUCOSE 139 mg/dL (75-110); POTASSIUM 3.7 mmol/L (3.6-5.0)
[2019-01-12] MEDS: HEPARIN SOD (PORCINE) 5,000 UNIT/ML 1 ML VIAL SUBCUT SCH ×3 (06:05→22:20)
[2019-01-12] MEDS: INSULIN REG, HUMAN 100 UNIT/ML 3 ML VIAL (PYX) SUBCUT SCH ×4 (07:43→22:20)
--- NOTE | 2019-01-12 08:54 | PDOC PROGRESS REPORT ---
Subjective Progress Note for:: 01/12/19 Subjective:: 01/10/2019-right hip pain 01/11/2019-no complaints this a.m.. 01/12/2019-no complaints. Patient beginning to answer questions appropriately. Reason For Visit: COUGH,FEVER,DELIRIUM,ELEVATED LACTIC ACID,SIRS Physical Exam Vital Signs: Temp Pulse Resp BP Pulse Ox 97.9 F 70 16 158/73 H 92 01/11/19 20:07 01/11/19 20:07 01/11/19 20:07 01/11/19 20:07 01/11/19 20:07 Intake & Output 01/11/19 01/12/19 01/13/19 06:59 06:59 06:59 Intake Total 1583 820 Output Total 1300 1100 Balance 283 -280 Weight 93.2 kg 93.8 kg General appearance: PRESENT: no acute distress, well-developed, well-nourished Neck exam: ABSENT: carotid bruit, JVD, lymphadenopathy, thyromegaly Respiratory exam: PRESENT: clear to auscultation jason. ABSENT: rales, rhonchi, wheezes Cardiovascular exam: PRESENT: RRR. ABSENT: diastolic murmur, rubs, systolic murmur Pulses: PRESENT: +1 pedal pulses bilateral Vascular exam: PRESENT: normal capillary refill GI/Abdominal exam: PRESENT: normal bowel sounds, soft. ABSENT: distended, guarding, mass, organolmegaly, rebound, tenderness Extremities exam: PRESENT: full ROM. ABSENT: calf tenderness, clubbing, pedal edema Neurological exam: PRESENT: awake, oriented to time Psychiatric exam: PRESENT: appropriate affect, normal mood. ABSENT: homicidal ideation, suicidal ideation Skin exam: PRESENT: dry, intact, warm. ABSENT: cyanosis, rash Results Laboratory Results: 01/12/19 04:48 01/12/19 04:48 01/11/19 01/11/19 01/12/19 14:43 23:20 04:48 WBC 3.8 L RBC 4.30 L Hgb 13.6 Hct 39.4 MCV 92 MCH 31.7 MCHC 34.6 RDW 14.0 Plt Count 122 L Sodium Potassium Chloride Carbon Dioxide Anion Gap BUN Creatinine Est GFR ( Amer) Glucose Calcium Urine Color YELLOW STRAW Urine Appearance CLEAR CLEAR Urine pH 7.0 8.0 Ur Specific [place] 1.012 1.006 Urine Protein 30 H 30 H Urine Glucose (UA) NEGATIVE NEGATIVE Urine Ketones NEGATIVE TRACE H Urine Blood NEGATIVE SMALL H Urine Nitrite NEGATIVE Ur Leukocyte Esterase NEGATIVE Urine WBC (Auto) 1 Urine RBC (Auto) 1 01/12/19 04:48 WBC RBC Hgb Hct MCV MCH MCHC RDW Plt Count Sodium 142.4 Potassium 3.7 Chloride 106 Carbon Dioxide 26 Anion Gap 10 BUN 15 Creatinine 0.79 Est GFR ( Amer) > 60 Glucose 139 H Calcium 8.7 Urine Color Urine Appearance Urine pH Ur Specific [place]lin Urine Protein Urine Glucose (UA) Urine Ketones Urine Blood Urine Nitrite Ur Leukocyte Esterase Urine WBC (Auto) Urine RBC (Auto) 01/08/19 23:15 Troponin I 0.015 Impressions: Chest X-Ray 01/10/19 00:00 IMPRESSION: 1. Since the prior examination dated 01/09/2019, bilateral mild airspace disease in the lower lungs, may represent infiltrates. Hip/Pelvis X-Ray 01/10/19 00:00 IMPRESSION: No acute fracture or malalignment right hip. Bony pelvis grossly intact. Head CT 01/11/19 00:00 IMPRESSION: Chronic white matter disease, no acute findings. EVIDENCE OF ACUTE STROKE: NO. Assessment and Plan - Diagnosis (1) Acute febrile illness Is this a current diagnosis for this admission?: Yes Plan: 01/10/2019-resolved at this time looks like mostly related to viral infection. Continue to follow. 01/11/2019-continue to follow stable 01/12/2019-stable (2) Acute respiratory failure with hypoxia Is this a current diagnosis for this admission?: Yes Plan: 01/10/2019-resolved stable continue to follow patient on 2 L nasal cannula able speak in full sentences. 01/11/2019-stable continue to follow 01/12/2019-stable (3) Chronic back pain Qualifiers: Back pain location: back pain in unspecified location Back pain laterality: unspecified Qualified Code(s): M54.9 - Dorsalgia, unspecified; G89.29 - Other chronic pain Is this a current diagnosis for this admission?: Yes Plan: 01/10/2019-continue OxyIR 10 mg p.o. twice daily from home 01/11/2019-continue OxyIR from home. 01/12/2019-OxyIR from home (4) Delirium due to another medical condition, acute, hypoactive Is this a current diagnosis for this admission?: Yes Plan: 01/10/2019-resolved continue to follow 01/11/2019-yesterday afternoon patient became somewhat confused again. He is pleasantly confused but nonetheless I believe this mostly toxic encephalopathy from infection. The repeat chest x-ray showed bilateral infiltrate suggestive of pneumonia. I placed patient on appropriate antibiotic therapy. 01/12/2019-beginning to clear. Patient able to answer question about date and president this morning. Will follow (5) Elevated lactic acid level Is this a current diagnosis for this admission?: Yes Plan: 01/10/2019-resolved stable 01/11/2019-stable 01/12/2019-stable (6) Elevated random blood glucose level Is this a current diagnosis for this admission?: Yes Plan: 01/10/2019-stable continue to follow 01/11/2019-stable at this time continue to follow 01/12/2019-stable (7) Multiple falls Is this a current diagnosis for this admission?: Yes Plan: 01/10/2019-. Had multiple falls at home complains of right hip pain. Continue oxycodone IR from home will obtain a x-ray of the right hip to rule out any pathology. 01/11/2019-stable. X-ray of right hip showed no pathology. 01/12/2019-stable (8) Nonproductive cough Is this a current diagnosis for this admission?: Yes Plan: 01/01/2019-stable continue to follow 01/11/2019-stable 01/12/2019-stable (9) SIRS (systemic inflammatory response syndrome) Is this a current diagnosis for this admission?: Yes Plan: 01/10/2019-resolved stable follow 01/11/2019-stable 01/12/2019-stable at this time (10) Diabetes mellitus type 2 in nonobese Is this a current diagnosis for this admission?: Yes Plan: 01/12/2019-A1c 7.8. The patient continues on sliding scale insulin. We will add glipizide xl 5 mg p.o. daily - Plan Summary Summary: Patient will be admitted to a general medical bed and treated with IV fluids and antibiotic therapy including Rocephin and azithromycin. He will be monitored closely on a clinical basis and will be evaluated with daily metabolic profiles and CBCs. He will receive supplemental oxygen via nasal cannula as required to maintain an O2 sat greater than 93%. Oxygen saturations will be checked frequently. His fever be treated with Tylenol as required. His delirium will be treated with Ativan 1 mg IV every 4 hours as needed for agitation or anxiety. Morphine sulfate 2 to 4 mg IV every 2 hours will be administered on as-needed basis for pain control utilizing a sliding scale for his chronic back pain. Hemoglobin A1c will be obtained and a diabetic diet will be ordered. The patient will be treated with Accu-Cheks before meals and at bedtime with sliding scale insulin for hyperglycemia and a hypoglycemic protocol in place. - Time Time Spent with patient: 15-24 minutes - Inpatient Certification Based on my medical assessment, after consideration of the patient's comorbidities, presenting symptoms, or acuity I expect that the services needed warrant INPATIENT care.: Yes I certify that my determination is in accordance with my understanding of Medicare's requirements for reasonable and necessary INPATIENT services [42 CFR 412.3e].: Yes Medical Necessity: Need for IV Antibiotics
[2019-01-12] MEDS: DOCUSATE SODIUM 100 MG CAPSULE PO SCH ×2 (10:21→17:20)
[2019-01-12] MEDS: AZITHROMYCIN 500 MG in DEXTROSE 5%-WATER 250 ML IV SCH (10:22)
[2019-01-12] MEDS: FAMOTIDINE 20 MG TABLET PO SCH ×2 (10:51→22:20)
[2019-01-12] MEDS: GLIPIZIDE XL 5 MG TAB.ER.24 PO SCH (12:47)
[2019-01-12] MEDS: CEFTRIAXONE 1 GM/D5W RTU 1 GM/50 ML RTUPB IV SCH (22:20)
[2019-01-13] MEDS: HEPARIN SOD (PORCINE) 5,000 UNIT/ML 1 ML VIAL SUBCUT SCH (05:12)
[2019-01-13] MEDS: INSULIN REG, HUMAN 100 UNIT/ML 3 ML VIAL (PYX) SUBCUT SCH (08:48)
--- NOTE | 2019-01-13 08:55 | PDOC DISCHARGE SUMMARY ---
Impression - Admit/DC Date/PCP Admission Date/Primary Care Provider: 01/09/19 03:02 Discharge Date: 01/13/19 - Assessment Summary: Patient will be admitted to a general medical bed and treated with IV fluids and antibiotic therapy including Rocephin and azithromycin. He will be monitored closely on a clinical basis and will be evaluated with daily metabolic profiles and CBCs. He will receive supplemental oxygen via nasal cannula as required to maintain an O2 sat greater than 93%. Oxygen saturations will be checked frequently. His fever be treated with Tylenol as required. His delirium will be treated with Ativan 1 mg IV every 4 hours as needed for agitation or anxiety. Morphine sulfate 2 to 4 mg IV every 2 hours will be administered on as-needed basis for pain control utilizing a sliding scale for his chronic back pain. Hemoglobin A1c will be obtained and a diabetic diet will be ordered. The patient will be treated with Accu-Cheks before meals and at bedtime with sliding scale insulin for hyperglycemia and a hypoglycemic protocol in place. - Additional Information Resuscitation Status: Full Code Discharge Diet: Diabetic Discharge Activity: Activity As Tolerated Referrals: ERICA ELLIS MD [HONORARY] - Prescriptions: Cefuroxime Axetil [Ceftin 500 mg Tablet] 1 tab PO BID #20 tablet Azithromycin [Zithromax 250 mg Tablet] 250 mg PO DAILY #5 tablet Home Medications: Azithromycin [Zithromax 250 mg Tablet] 250 mg PO DAILY #5 tablet 01/13/19 Cefuroxime Axetil [Ceftin 500 mg Tablet] 1 tab PO BID #20 tablet 01/13/19 Glipizide [Glucotrol Xl 5 mg Tab.er] 5 mg PO QAM tab.er.24 01/13/19 History of Present Illiness History of Present Illness: EVELYNE MUNROE is a 83 year old male with a history of diabetes. He reported a 5-day history of progressively worsening cough with a ventral fever and shortness of breath. His oral intake decreased and he became quite weak. On admission, pneumonia was suspected. He was started on dual antibiotic therapy. He was referred to the hospital service for admission. Hospital Course Hospital Course: The patient's hospital course was significant for an episode of delirium. This was most likely related to infection and/or sundowning. He has consistently improved and is afebrile with a normal white blood cell count and requesting discharge. I believe it is safe, medically speaking, for discharge at this time. Physical Exam Vital Signs: Temp Pulse Resp BP Pulse Ox 98.6 F 81 15 141/82 H 90 L 01/13/19 01:06 01/13/19 01:06 01/13/19 01:06 01/13/19 01:06 01/13/19 01:06 Intake & Output 01/12/19 01/13/19 01/14/19 06:59 06:59 06:59 Intake Total 820 1378 Output Total 1100 550 Balance -280 828 Weight 93.8 kg 89.4 kg General appearance: PRESENT: no acute distress, cooperative, well-developed Head exam: PRESENT: atraumatic, normocephalic Eye exam: PRESENT: conjunctiva pink. ABSENT: scleral icterus Ear exam: PRESENT: normal external ear exam. ABSENT: bleeding, drainage Mouth exam: PRESENT: moist, tongue midline Respiratory exam: PRESENT: rales - Faint rales at bases, symmetrical, unlabored. ABSENT: accessory muscle use, rhonchi, tachypnea, wheezes Cardiovascular exam: PRESENT: RRR, +S1, +S2 GI/Abdominal exam: PRESENT: normal bowel sounds, soft. ABSENT: distended, guarding, tenderness Rectal exam: PRESENT: deferred Musculoskeletal exam: PRESENT: ambulatory, full ROM, normal inspection Neurological exam: PRESENT: alert, awake, oriented to person, oriented to place, oriented to time, oriented to situation, CN II-XII grossly intact Psychiatric exam: PRESENT: appropriate affect, normal mood. ABSENT: agitated, anxious Focused psych exam: ABSENT: delusional, restlessness Skin exam: PRESENT: dry, normal color, warm. ABSENT: rash Results Laboratory Results: WBC 3.8 10^3/uL (4.0-10.5) L 01/12/19 04:48 RBC 4.30 10^6/uL (4.35-5.55) L 01/12/19 04:48 Hgb 13.6 g/dL (13.5-17.0) 01/12/19 04:48 Hct 39.4 % (37.9-51.0) 01/12/19 04:48 MCV 92 fl (80-97) 01/12/19 04:48 MCH 31.7 pg (27.0-33.4) 01/12/19 04:48 MCHC 34.6 g/dL (32.0-36.0) 01/12/19 04:48 RDW 14.0 % (11.5-14.0) 01/12/19 04:48 Plt Count 122 10^3/uL (150-450) L 01/12/19 04:48 Lymph % (Auto) 5.1 % (13-45) L 01/08/19 23:15 [place] % (Auto) 5.0 % (3-13) 01/08/19 23:15 Eos % (Auto) 0.0 % (0-6) 01/08/19 23:15 Baso % (Auto) 0.3 % (0-2) 01/08/19 23:15 Absolute Neuts (auto) 5.5 10^3/uL (1.7-8.2) 01/08/19 23:15 Absolute Lymphs (auto) 0.3 10^3/uL (0.5-4.7) L 01/08/19 23:15 Absolute Monos (auto) 0.3 10^3/uL (0.1-1.4) 01/08/19 23:15 Absolute Eos (auto) 0.0 10^3/uL (0.0-0.6) 01/08/19 23:15 Absolute Basos (auto) 0.0 10^3/uL (0.0-0.2) 01/08/19 23:15 Seg Neutrophils % 89.6 % (42-78) H 01/08/19 23:15 PT 13.6 SEC (11.4-15.4) 01/08/19 23:15 INR 1.04 01/08/19 23:15 VBG pH 7.38 (7.30-7.42) 01/10/19 04:43 VBG pCO2 39.6 mmHg (35-63) 01/10/19 04:43 VBG HCO3 22.7 mmol/L (20-32) 01/10/19 04:43 VBG Base Excess -2.1 mmol/L 01/10/19 04:43 Sodium 142.4 mmol/L (137-145) 01/12/19 04:48 Potassium 3.7 mmol/L (3.6-5.0) 01/12/19 04:48 Chloride 106 mmol/L (98-107) 01/12/19 04:48 Carbon Dioxide 26 mmol/L (22-30) 01/12/19 04:48 Anion Gap 10 (5-19) 01/12/19 04:48 BUN 15 mg/dL (7-20) 01/12/19 04:48 Creatinine 0.79 mg/dL (0.52-1.25) 01/12/19 04:48 Est GFR ( Amer) > 60 (>60) 01/12/19 04:48 Est GFR (MDRD) Non-Af > 60 (>60) 01/12/19 04:48 Glucose 139 mg/dL (75-110) H 01/12/19 04:48 POC Glucose 139 mg/dL (70-110) H 01/12/19 15:06 Hemoglobin A1c % 7.8 % (4.7-6.0) H 01/10/19 04:43 Lactic Acid 1.5 mmol/L (0.7-2.1) 01/09/19 11:32 Lactic Acid (Sepsis) 1.6 mmol/L (0.7-2.1) 01/09/19 06:48 Calcium 8.7 mg/dL (8.4-10.2) 01/12/19 04:48 Magnesium 1.7 mg/dL (1.6-2.3) 01/10/19 04:43 Total Bilirubin 0.5 mg/dL (0.2-1.3) 01/10/19 04:43 Direct Bilirubin 0.3 mg/dL (0.0-0.4) 01/10/19 04:43 Neonat Total Bilirubin Not Reportable 01/10/19 04:43 Neonat Direct Bilirubin Not Reportable 01/10/19 04:43 Neonat Indirect Bili Not Reportable 01/10/19 04:43 AST 83 U/L (17-59) H 01/10/19 04:43 ALT 32 U/L (<50) 01/10/19 04:43 Alkaline Phosphatase 57 U/L (38-126) 01/10/19 04:43 Troponin I 0.015 ng/mL 01/08/19 23:15 Total Protein 5.7 g/dL (6.3-8.2) L 01/10/19 04:43 Albumin 3.0 g/dL (3.5-5.0) L 01/10/19 04:43 Urine Color STRAW 01/11/19 23:20 Urine Appearance CLEAR 01/11/19 23:20 Urine pH 8.0 (5.0-9.0) 01/11/19 23:20 Ur Specific [place] 1.006 01/11/19 23:20 Urine Protein 30 mg/dL (NEGATIVE) H 01/11/19 23:20 Urine Glucose (UA) NEGATIVE mg/dL (NEGATIVE) 01/11/19 23:20 Urine Ketones TRACE mg/dL (NEGATIVE) H 01/11/19 23:20 Urine Blood SMALL (NEGATIVE) H 01/11/19 23:20 Urine Nitrite NEGATIVE (NEGATIVE) 01/11/19 14:43 Urine Nitrite (Reflex) NEGATIVE (NEGATIVE) 01/11/19 23:20 Urine Bilirubin NEGATIVE (NEGATIVE) 01/11/19 23:20 Urine Urobilinogen NEGATIVE mg/dL (<2.0) 01/11/19 23:20 Ur Leukocyte Esterase NEGATIVE (NEGATIVE) 01/11/19 14:43 Leukocyte Esterase Rfl NEGATIVE (NEGATIVE) 01/11/19 23:20 Urine WBC (Auto) 1 /HPF 01/11/19 14:43 Urine RBC (Auto) 1 /HPF 01/11/19 14:43 Urine WBC (Reflex) < 1 /HPF 01/11/19 23:20 Urine Mucus (Auto) RARE /LPF 01/11/19 23:20 Urine Ascorbic Acid NEGATIVE (NEGATIVE) 01/11/19 23:20 Influenza A (Rapid) NEGATIVE (NEGATIVE) 01/09/19 01:20 Influenza B (Rapid) NEGATIVE (NEGATIVE) 01/09/19 01:20 01/08/19 23:15 Troponin I 0.015 Impressions: Chest X-Ray 01/08/19 23:28 IMPRESSION: Clear lungs. Chest X-Ray 01/10/19 00:00 IMPRESSION: 1. Since the prior examination dated 01/09/2019, bilateral mild airspace disease in the lower lungs, may represent infiltrates. Hip/Pelvis X-Ray 01/10/19 00:00 IMPRESSION: No acute fracture or malalignment right hip. Bony pelvis grossly intact. Head CT 01/11/19 00:00 IMPRESSION: Chronic white matter disease, no acute findings. EVIDENCE OF ACUTE STROKE: NO. Plan Plan of Treatment: The patient will complete dual antibiotic therapy as an outpatient. He will resume his oral diabetic medications. Goals: Complete resolution of pneumonia Time Spent: Greater than 30 Minutes Stroke Is this a Stroke Patient?: No Acute Heart Failure - Is this a Heart Failure Patient?: No
[2019-01-13] MEDS: DOCUSATE SODIUM 100 MG CAPSULE PO SCH (09:59)
[2019-01-13] MEDS: GLIPIZIDE XL 5 MG TAB.ER.24 PO SCH (10:00)
[2019-01-13] MEDS ORDERED: AZITHROMYCIN 250 MG TABLET PO ONE (10:00)
[2019-01-13] MEDS ORDERED: CEFUROXIME 500 MG TABLET PO ONE (10:00)
[2019-01-13] MEDS: FAMOTIDINE 20 MG TABLET PO SCH (10:00)
[2019-01-13] MEDS: AZITHROMYCIN 500 MG in DEXTROSE 5%-WATER 250 ML IV SCH (10:00)
[2019-01-13 10:23] VITALS: BP 135/79
== END 2019-01-13 10:15 | disposition home or self-care (01) | DRG 193 ==
LOC: ER 23:10 → EDBD 23:10 → EH 01-09 03:02 → 4N 01-09 04:18
PROVIDERS: ADMIT Emergency Medicine; ATTEND Emergency Medicine
DX: J18.9 Pneumonia, unspecified organism (principal); J96.01 Acute respiratory failure with hypoxia; G92 Toxic encephalopathy; F22 Delusional disorders; R05 Cough; M54.9 Dorsalgia, unspecified; R41.0 Disorientation, unspecified; G89.29 Other chronic pain; R73.01 Impaired fasting glucose
CPT/HCPCS: 36415; 70450; 71045; 71046; 80048; 80053; 81001; 82803; 82962; 83036; 83605; 83735; 84484; 85025; 85027; 85610; 87040; 87804; 93005; 93010; 96361; 96374; 99285; J0456; J0696; J1630; J1815; J3490; J7030; J7060; J7120

== ENCOUNTER 2020-01-31 23:07 | Inpatient (IN) | payer MEDICARE, BC ==
--- NOTE | 2020-01-31 23:36 | ER Document Report ---
ED General - General Chief Complaint: Fever Stated Complaint: FEVER Time Seen by Provider: 01/31/20 23:34 Primary Care Provider: SHARDA MOE PA-C [Primary Care Provider] - Follow up as needed TRAVEL OUTSIDE OF THE [place] 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 Patient reportedly went to [facility] couple of days ago to get a Covid swab done which he has been waiting on the results of but when he started feeling worse tonight he called EMS. Patient's temp was 103.4 and he was given 975 mg Tylenol in route. Rapid Covid swab done in route by EMS is pos itive. Patient denies loss of sense of taste or loss of sense of smell ] History obtained from [patient] Symptoms began:[5 days ago] Onset: [Gradual] Timing: [Gradual] Quality: [Fatiguing] Intensity: [Severe] Location: [Generalized] Radiation: [Denies] [The pain does not migrate to a new location.] Aggravating factors: [n exertion one] Relieving factors: [none] Positive SOB [Denies] nausea [Denies] vomiting [Denies] sweats Positive fever [Denies] cough [Denies] calf or leg swelling or pain - Related Data Allergies/Adverse Reactions: No Known Allergies Allergy (Unverified 01/13/19 14:12) Past Medical History - General Information source: Patient - Social History Smoking Status: Never Smoker Lives with: Family Family History: Reviewed & Not Pertinent - Past Medical History Cardiac Medical History: Denies: Hx Coronary Artery Disease, Hx Heart Attack, Hx Hypercholesterolemia, Hx Hypertension Pulmonary Medical History: Denies: Hx Asthma, Hx COPD Neurological Medical History: Denies: Hx Seizures Endocrine Medical History: Denies: Hx Diabetes Mellitus Type 1, Hx Diabetes Mellitus Type 2, Hx Hyperthyroidism, Hx Hypothyroidism Renal/ Medical History: Reports: Hx Benign Prostatic Hyperplasia, Hx Kidney Stones GI Medical History: Denies: Hx Cirrhosis, Hx Crohn's Disease, Hx Hepatitis, Hx Ulcerative Colitis Musculoskeletal Medical History: Reports Hx Arthritis - Severe spinal arthritis, osteoarthritis of multiple joints, Denies Hx Gout Skin Medical History: Denies Hx Eczema, Denies Hx Psoriasis Traumatic Medical History: Reports: Hx Fractures Infectious Medical History: Denies: Hx Hepatitis Past Surgical History: Reports: Hx Cholecystectomy, Hx Orthopedic Surgery Review of Systems - Review of Systems Notes: Review of systems as below unless otherwise stated in HPI. CONSTITUTIONAL Positive fever, [No] chills. Positive fatigue EYES [No] eye pain. ENT [No] URI symptoms, [No] sore throat, [No] ear pain. CARDIOVASCULAR [No] chest pain, [No] palpitations, [No] edema. RESPIRATORY [No] Cough, [No] SOB, [No] wheezing. GASTROINTESTINAL [No] abdominal pain, [No] nausea, [No] Diarrhea, [No] Vomiting, [No] constipation, [No] melena, [No] rectal bleeding. GENITOURINARY [No] dysuria, [No] urinary frequency, [No] hematuria, [No] urinary urgency MUSCULOSKELETAL [No] Back pain. SKIN [No] Rash. NEUROLOGIC [No] Headache, [No] recent seizures, [No] paralysis,[No] parathesias. ENDOCRINE [No] polyuria. HEMO/LYMPATIC [No] easy brusing PSYCHIATRIC [No] depression. Physical Exam - Vital signs Vitals: Temp 102.8 F H 01/31/20 23:08 - Notes Notes: CONSTITUTIONAL [Vital signs reviewed, Patient appears fatigued, Alert and oriented X 3, Normal stature.] HEAD [Atraumatic, Normocephalic.] EYES [Eyes are normal to inspection, No discharge from eyes, Extraocular muscles i ntact, Sclera are normal, Conjunctiva are normal.] ENT [External ears normal to inspection, Nose examination normal, Mouth normal to inspection.] NECK [Normal ROM, No jugular venous distention, No meningeal signs, ] RESPIRATORY CHEST [Chest is nontender, patient has crackles present bilateral bases, No respiratory distress.] CARDIOVASCULAR Tachycardia no murmurs, Normal S1 S2, No rub, No gallop.] ABDOMEN [Abdomen is nontender, No pulsatile masses, No other masses, Bowel sounds normal, No distension, No peritoneal signs, No hernias.] BACK [There is no CVA Tenderness, There is no tenderness to palpation, Normal inspection.] UPPER EXTREMITY [Inspection normal, No cyanosis, No clubbing, No edema, LOWER EXTREMITY [Inspection normal, No cyanosis, No clubbing, No edema, No calf tenderness, NEURO [No focal motor deficits, No focal sensory deficits, Speech normal.] SKIN [Skin is warm, Skin is dry, Skin is normal color.] PSYCHIATRIC [Normal affect. ] Course - Re-evaluation Re-evalutation: 02/01/20 02:37 Results of ED MSE discussed with patient. Recommendation for admission discussed with patient. Patient is agreeable to this. - Vital Signs Vital signs: Temp Pulse Resp BP Pulse Ox 98.9 F 11 L 104/87 H 94 02/01/20 01:30 02/01/20 03:01 02/01/20 03:01 02/01/20 03:01 - Laboratory Results Result Diagrams: 01/31/20 23:20 01/31/20 23:20 Laboratory Results Interpreted: 01/31/20 01/31/20 23:20 23:20 RBC 4.12 L Hgb 13.3 L Plt Count 88 L Lymph % (Auto) 11.8 L Seg Neutrophils % 82.4 H Glucose 249 H AST 66 H Total Protein 6.2 L Critical Laboratory Results Reviewed: No Critical Results Attending or Supervising Physician who Reviewed Labs: ALY BERUMEN IV - Radiology Results Critical Radiology Results Reviewed: No Critical Results Attending or Supervising Physician who Reviewed Radiology: ALY BERUMEN IV - EKG Interpretation by Me Additional EKG results interpreted by me: 02/01/20 00:29 EKG obtained on 02/01/2020 at 00 25 hours was interpreted by this MD. Findings: Normal sinus rhythm, rate 84, normal axis, PA interval appears to be within normal limits, P waves preceding QRS complexes, QRS complexes appear narrow, QTC is 436, there are no obvious patterns of ST segment elevation, depression or reciprocal change seen to suggest acute myocardial ischemia or infarction. When compared to prior EKG from 01/08/2019, morphology of the 2 EKGs is grossly the same. Impression: Normal sinus rhythm with nonspecific ST segments - Consults Dr. Frias, hospitalist Time consulted: 02:35 Reason for consultation: 02/01/20 02:35 COVID +, sats in 80s on room air Consulted provider: will come to ER Discharge - Discharge Clinical Impression: COVID-19 Condition: Stable Disposition: ADMITTED OBSERVATION Admitting Provider: Altagrac[facility] Unit Admitted: Medical Floor Referrals: SHARDA MOE PA-C [Primary Care Provider] - Follow up as needed
[2020-02-01] MEDS ORDERED: ACETAMINOPHEN 325 MG TABLET PO ONE (00:09)
[2020-02-01] MEDS ORDERED: DEXAMETHASONE SOD PHOS INJ 10 MG/1 ML VIAL IV ONE (00:11)
[2020-02-01] MEDS ORDERED: NORMAL SALINE 1000 ML 1,000 ML IV ONE (00:12)
[2020-02-01 00:36] LABS: INTERNATIONAL RATION (INR) 0.97; PROTHROMBIN TIME 13.1 SEC (11.4-15.4)
[2020-02-01 00:41] LABS: ALBUMIN 3.5 g/dL (3.5-5.0); ALKALINE PHOSPHATASE 69 U/L (38-126); ANION GAP 10 (5-19); ASPARTATE AMINO TRANSFERASE 66 U/L (17-59); BILIRUBIN,DIRECT 0.3 mg/dL (0.0-0.4); BILIRUBIN,TOTAL 0.6 mg/dL (0.2-1.3); BLOOD UREA NITROGEN 20 mg/dL (7-20); CALCIUM 8.7 mg/dL (8.4-10.2); CARBON DIOXIDE 23 mmol/L (22-30); CHLORIDE 105 mmol/L (98-107); GLUCOSE 249 mg/dL (75-110); POTASSIUM 4.3 mmol/L (3.6-5.0); TOTAL PROTEIN 6.2 g/dL (6.3-8.2)
[2020-02-01 00:47] LABS: ABSOLUTE LYMPHOCYTES (AUTO) 0.5 10^3/uL (0.5-4.7); ABSOLUTE MONOCYTES (AUTO) 0.2 10^3/uL (0.1-1.4); ABSOLUTE NEUT (AUTO) 3.5 10^3/uL (1.7-8.2); BASOPHILS % (AUTO) 0.3 % (0-2); EOSINOPHILS % (AUTO) 0.1 % (0-6); HEMATOCRIT 38.8 % (37.9-51.0); HEMOGLOBIN 13.3 g/dL (13.5-17.0); LYMPHOCYTES % (AUTO) 11.8 % (13-45); MEAN CORPUSCULAR HEMOGLOBIN 32.4 pg (27.0-33.4); MEAN CORPUSCULAR HGB CONC 34.4 g/dL (32.0-36.0); MEAN CORPUSCULAR VOLUME 94 fl (80-97); MONOCYTES % (AUTO) 5.4 % (3-13); RED BLOOD COUNT 4.12 10^6/uL (4.35-5.55); RED CELL DISTRIBUTION WIDTH 13.8 % (11.5-14.0); SEGMENTED NEUTROPHILS % (AUTO) 82.4 % (42-78); TOTAL CELLS COUNTED % (AUTO) 100 %; WHITE BLOOD COUNT 4.3 10^3/uL (4.0-10.5)
[2020-02-01 01:10] LABS: PLATELET COUNT 88 10^3/uL (150-450)
[2020-02-01 01:12] LABS: VENOUS BLOOD BASE EXCESS -2.7 mmol/L; VENOUS BLOOD HCO3 22.9 mmol/L (20-32); VENOUS BLOOD PCO2 43.1 mmHg (35-63); VENOUS BLOOD PH 7.34 (7.30-7.42)
--- NOTE | 2020-02-01 02:00 | RADIOLOGY REPORT (SQ) ---
CHEST X-RAY 1 VIEW on 02/01/2020 at 12:57 AM CLINICAL INDICATION: Fever COMPARISON: 01/10/2019 FINDINGS: Extensive posterior fusion hardware is noted in the thoracic spine. The lungs are clear. Cardiac, hilar and mediastinal contours are within normal limits. Pulmonary vascularity is within normal limits. No bony abnormality is noted. IMPRESSION: No acute disease.
[2020-02-01] MEDS ORDERED: ACETAMINOPHEN 325 MG TABLET PO PRN (03:15)
[2020-02-01] MEDS ORDERED: ONDANSETRON HCL INJ/PF 4 MG/2 ML SDV IV PRN (03:15)
[2020-02-01] MEDS ORDERED: IVERMECTIN 3 MG TABLET PO ONE (04:00)
--- NOTE | 2020-02-01 04:12 | PDOC H&P ---
History of Present Illness Admission Date/PCP: SHARDA MOE PA-C Patient complains of: Fever History of Present Illness: EVELYNE MUNROE is a 84 year old male with no significant past medical history presents with 3 days duration of fever, myalgias, generalized body aches. 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 He denies shortness of breath, cough, runny nose, congestion, sore throat, nausea, vomiting, abdominal pain or diarrhea. Per EMS report patient was saturating low to mid 80s and was placed on 2 L intranasal oxygen which improved his oxygenation to mid 90s. He was also reported to have a fever of 103 by EMS and on arrival to the ED he had a temperature of 102.8 which improved to 98.9 after he was given Tylenol. Rapid COVID-19 test done by EMS was positive. Past Medical History Cardiac Medical History: Denies: Coronary Artery Disease, Myocardial Infarction, Hyperlipidema, Hypertension Pulmonary Medical History: Denies: Asthma, Chronic Obstructive Pulmonary Disease (COPD) Neurological Medical History: Denies: Seizures Endocrine Medical History: Denies: Diabetes Mellitus Type 1, Diabetes Mellitus Type 2, Hyperthyroidism, Hypothyroidism GI Medical History: Denies: Cirrhosis, Crohn's Disease, Hepatitis, Ulcerative Colitis Musculoskeltal Medical History: Reports: Arthritis - Severe spinal arthritis, osteoarthritis of multiple joints Denies: Gout Skin Medical History: Denies: Eczema, Psoriasis Hematology: Denies: Anemia, Bleeding Tendencies Past Surgical History Past Surgical History: Reports: Cholecystectomy, Orthopedic Surgery Social History Information Source: Patient Lives with: Family Smoking Status: Never Smoker Electronic Cigarette use?: No Frequency of Alcohol Use: Rare Hx Recreational Drug Use: No Drugs: None Hx Prescription Drug Abuse: No - Advance Directive Resuscitation Status: Full Code Family History Family History: Reviewed & Not Pertinent Parental Family History Reviewed: Yes Children Family History Reviewed: Yes Sibling(s) Family History Reviewed.: Yes Medication/Allergy Home Medications: Oxycodone HCl 1 - 2 tab PO ASDIR PRN #40 tablet 03/08/15 Azithromycin [Zithromax 250 mg Tablet] 250 mg PO DAILY #5 tablet 01/13/19 Cefuroxime Axetil [Ceftin 500 mg Tablet] 1 tab PO BID #20 tablet 01/13/19 Glipizide [Glucotrol Xl 5 mg Tab.er] 5 mg PO QAM tab.er.24 01/13/19 Allergies/Adverse Reactions: No Known Allergies Allergy (Unverified 01/13/19 14:12) Review of Systems Constitutional: PRESENT: as per HPI, chills, fatigue, fever(s). ABSENT: weight gain, weight loss Eyes: ABSENT: visual disturbances Ears: ABSENT: hearing changes Nose, Mouth, and Throat: ABSENT: mouth pain, sore throat Cardiovascular: ABSENT: chest pain, dyspnea on exertion, edema, orthropnea, palpitations Respiratory: ABSENT: cough, hemoptysis Gastrointestinal: ABSENT: abdominal pain, constipation, diarrhea, hematemesis, hematochezia, nausea, vomiting Genitourinary: ABSENT: dysuria, hematuria Musculoskeletal: ABSENT: joint swelling Integumentary: ABSENT: rash, wounds Neurological: ABSENT: abnormal gait, abnormal speech, confusion, dizziness, focal weakness, syncope Psychiatric: ABSENT: anxiety, depression, homidical ideation, suicidal ideation Endocrine: ABSENT: cold intolerance, heat intolerance, polydipsia, polyuria Hematologic/Lymphatic: ABSENT: easy bleeding, easy bruising Physical Exam Vital Signs: Temp Pulse Resp BP Pulse Ox 98.9 F 11 L 104/87 H 94 02/01/20 01:30 02/01/20 03:01 02/01/20 03:01 02/01/20 03:01 Intake & Output 01/30/20 01/31/20 02/01/20 06:59 06:59 06:59 Intake Total 1000 Balance 1000 Weight 86.8 kg Additional comments: GENERAL APPEARANCE: Alert and oriented x3, breathing comfortably on 2 L intranasal oxygen HEENT: Normocephalic and atraumatic. No scleral icterus. Moist oral mucosa NECK: Supple. No lymphadenopathy or tenderness. No carotid bruit. No JVD CHEST: Symmetric. Nontender to palpation. LUNGS: Clear with good air entry bilaterally. Has fine bibasilar crackles HEART: Regular rate and rhythm with normal S1 and S2. No murmurs, gallops, or rubs. ABDOMEN: soft, active bowel sounds, no direct or rebound tenderness. No organomegaly detected. No CVA tenderness EXTREMITIES: No cyanosis, clubbing, or edema. MUSCULOSKELETAL: No deformity, atrophy or swelling noted PSYCHIATRIC: Recent and remote memory is intact. Appropriate mood and affect. SKIN: Warm, dry, and well perfused. No lesions or rashes are noted. NEUROLOGIC: No focal sensory or motor deficits are noted. Results Laboratory Results: 01/31/20 23:20 01/31/20 23:20 01/31/20 01/31/20 01/31/20 23:20 23:20 23:20 WBC 4.3 RBC 4.12 L Hgb 13.3 L Hct 38.8 MCV 94 MCH 32.4 MCHC 34.4 RDW 13.8 Plt Count 88 L Seg Neutrophils % 82.4 H VBG pH VBG pCO2 VBG HCO3 VBG Base Excess Sodium 138.3 Potassium 4.3 Chloride 105 Carbon Dioxide 23 Anion Gap 10 BUN 20 Creatinine 1.16 Est GFR ( Amer) > 60 Glucose 249 H Lactic Acid 1.4 Calcium 8.7 Total Bilirubin 0.6 AST 66 H Alkaline Phosphatase 69 Total Protein 6.2 L Albumin 3.5 02/01/20 02/01/20 00:50 02:20 WBC RBC Hgb Hct MCV MCH MCHC RDW Plt Count Seg Neutrophils % VBG pH 7.34 VBG pCO2 43.1 VBG HCO3 22.9 VBG Base Excess -2.7 Sodium Potassium Chloride Carbon Dioxide Anion Gap BUN Creatinine Est GFR ( Amer) Glucose Lactic Acid 1.2 Calcium Total Bilirubin AST Alkaline Phosphatase Total Protein Albumin Impressions: Chest X-Ray 02/01/20 00:10 IMPRESSION: No acute disease. Assessment and Plan - Diagnosis (1) Acute respiratory failure with hypoxia Is this a current diagnosis for this admission?: Yes Plan: Presented with fever, generalized body aches and myalgias Patient denies shortness of breath but his saturation was in the lower 80s during evaluation by EMS Currently requiring 2 L to saturate 92 to 95%, venous blood gas at the ED was not remarkable Rapid COVID-19 test was positive Chest x-ray showed no acute findings Started him on dexamethasone, ivermectin Continue zinc, vitamin D, vitamin C Adjust intranasal O2 to maintain saturation above 94% (2) Pneumonia due to COVID-19 virus Is this a current diagnosis for this admission?: Yes Plan: Patient denies respiratory symptoms but saturation was around lower 80s on presentation He had a temperature of 102.8 on arrival to the ED Chest x-ray showed no acute finding Has no leukocytosis and lactic acid level was within the normal limit Continue management of COVID-19 infection as stated above Started him on doxycycline, ivermectin, dexamethasone, vitamin C, vitamin D, zinc Continue supplemental oxygen to keep saturation above 94 and Tylenol for fever Follow-up with blood culture results (3) Elevated random blood glucose level Is this a current diagnosis for this admission?: Yes Plan: Patient reports that he was told he had diabetes a year ago and was started on glipizide but discontinued his medication 4 weeks later and has been managing himself with dietary and lifestyle adjustments Will place him on sliding scale insulin, hypoglycemia protocol and Accu-Cheks Check A1c in the morning - Time Time Spent with patient: 35 or more minutes Total Critical Time (Minutes): 45 Medications reviewed and adjusted accordingly: Yes Anticipated Discharge Disposition: Home, Self Care Anticipated Discharge Timeframe: within 72 hours - Inpatient Certification Based on my medical assessment, after consideration of the patient's comorbidities, presenting symptoms, or acuity I expect that the services needed warrant INPATIENT care.: Yes I certify that my determination is in accordance with my understanding of Medicare's requirements for reasonable and necessary INPATIENT services [42 CFR 412.3e].: Yes Medical Necessity: Need Close Monitoring Due to Risk of Patient Decompensation, Need for IV Antibiotics, Risk of Complication if Not Cared For in Hospital Post Hospital Care: D/C or Transfer Summary
[2020-02-01] MEDS ORDERED: GLUCAGON,HUMAN RECOMB 1 MG INJ IM PRN (04:56)
[2020-02-01] MEDS ORDERED: DEXTROSE 50%-WATER 25 GM/50 ML DISP.SYRIN IV PRN ×2 (04:56)
[2020-02-01] MEDS ORDERED: DEXTROSE 40% GEL 15 GM TUBE PO PRN ×2 (04:56)
[2020-02-01] MEDS ORDERED: IVERMECTIN 3 MG TABLET ONE (05:16)
[2020-02-01] MEDS ORDERED: DOXYCYCLINE HYCLATE INJ 100 MG VIAL ONE (05:53)
[2020-02-01 05:55] LABS: APPEARANCE,URINE SLIGHTLY-CLOUDY; BILIRUBIN,URINE NEGATIVE (NEGATIVE); GLUCOSE, URINE NEGATIVE (NEGATIVE); KETONES,URINE NEGATIVE (NEGATIVE); PROTEIN,URINE 100 mg/dL (NEGATIVE); URINE SPECIFIC GRAVITY 1.023
[2020-02-01 05:57] LABS: COLOR,URINE DARK YELLOW
[2020-02-01] MEDS ORDERED: OXYCODONE HCL IR 5 MG TABLET PO SCH (06:00)
[2020-02-01] MEDS: DOXYCYCLINE HYCLATE 100 MG in DEXTROSE 5%-WATER 250 ML IV SCH ×2 (06:19→18:43)
[2020-02-01 08:40] LABS: HEMATOCRIT 38.8 % (37.9-51.0); HEMOGLOBIN 13.1 g/dL (13.5-17.0); MEAN CORPUSCULAR HEMOGLOBIN 32.3 pg (27.0-33.4); MEAN CORPUSCULAR HGB CONC 33.7 g/dL (32.0-36.0); MEAN CORPUSCULAR VOLUME 96 fl (80-97); RED BLOOD COUNT 4.05 10^6/uL (4.35-5.55); RED CELL DISTRIBUTION WIDTH 13.6 % (11.5-14.0); WHITE BLOOD COUNT 5.5 10^3/uL (4.0-10.5)
[2020-02-01] MEDS: INSULIN REG, HUMAN 100 UNIT/ML 3 ML VIAL (PYX) SUBCUT SCH ×4 (08:40→21:23)
[2020-02-01 08:56] LABS: ANION GAP 8 (5-19); BLOOD UREA NITROGEN 24 mg/dL (7-20); CALCIUM 8.2 mg/dL (8.4-10.2); CARBON DIOXIDE 22 mmol/L (22-30); CHLORIDE 105 mmol/L (98-107); GLUCOSE 357 mg/dL (75-110); POTASSIUM 4.7 mmol/L (3.6-5.0)
[2020-02-01 09:00] LABS: C-REACTIVE PROTEIN 74.8 mg/L (<10.0)
[2020-02-01 09:18] LABS: PLATELET COUNT 81 10^3/uL (150-450)
[2020-02-01] MEDS ORDERED: DEXAMETHASONE SOD PHOS INJ 10 MG/1 ML VIAL IV SCH (10:00)
[2020-02-01] MEDS ORDERED: ENOXAPARIN SODIUM INJ 40 MG/0.4 ML DISP.SYRIN SUBCUT SCH (10:00)
[2020-02-01] MEDS: METHYLPREDNISOLONE INJ 40 MG/1 ML SDV IV SCH ×2 (10:27→21:23)
[2020-02-01] MEDS: ZINC SULFATE 220 MG CAPSULE PO SCH (10:27)
[2020-02-01] MEDS: ENOXAPARIN SODIUM INJ 100 MG/1 ML DISP.SYRIN SUBCUT SCH ×2 (10:27→21:22)
[2020-02-01] MEDS: ASCORBIC ACID 500 MG TABLET PO SCH ×2 (10:27→18:43)
[2020-02-01] MEDS: CHOLECALCIFEROL (D3) 1,000 UNIT (25 MCG) TABLET PO SCH (10:27)
[2020-02-01] MEDS: OXYCODONE HCL IR 5 MG TABLET PO SCH ×2 (10:27→11:21)
[2020-02-01] MEDS: FAMOTIDINE 20 MG TABLET PO SCH ×2 (10:28→21:23)
--- NOTE | 2020-02-01 12:17 | EKG REPORT ---
SEVERITY:- ABNORMAL ECG - SINUS RHYTHM LEFT VENTRICULAR HYPERTROPHY : Confirmed by: Sonia Myers MD 01-Feb-2020 12:17:11
[2020-02-01] MEDS ORDERED: DIAZEPAM 5 MG TABLET PO PRN (15:56)
[2020-02-01] MEDS ORDERED: IBUPROFEN 400 MG TABLET PO PRN (15:56)
[2020-02-01] MEDS ORDERED: SENNOSIDES/DOCUSATE 8.6-50 MG 1 EACH TABLET PO PRN (16:12)
[2020-02-01] MEDS ORDERED: MAGNESIUM HYDROXIDE SUSP 30 ML UDCUP PO PRN (16:12)
--- NOTE | 2020-02-01 16:19 | PDOC PROGRESS REPORT ---
Subjective Date:: 02/01/20 Reason For Visit: ACUTE HYPOXIC RESPIRATORY FAILURE,PNEUMONIA DUE TO Physical Exam Vital Signs: Temp Pulse Resp BP Pulse Ox 97.6 F 72 16 158/74 H 96 02/01/20 15:32 02/01/20 15:32 02/01/20 15:32 02/01/20 15:32 02/01/20 15:32 Intake & Output 01/31/20 02/01/20 02/02/20 06:59 06:59 06:59 Intake Total 1000 250 Balance 1000 250 Weight 86.8 kg General appearance: PRESENT: no acute distress, cooperative, well-developed, well-nourished - overweight Head exam: PRESENT: atraumatic, normocephalic Eye exam: PRESENT: conjunctiva pink, EOMI, PERRLA. ABSENT: scleral icterus Mouth exam: PRESENT: moist, tongue midline Respiratory exam: PRESENT: clear to auscultation jason, symmetrical, unlabored, other - supplemental oxygen via NC. ABSENT: rales, rhonchi, wheezes Cardiovascular exam: PRESENT: RRR. ABSENT: diastolic murmur, rubs, systolic murmur Pulses: PRESENT: normal dorsalis pedis pul Vascular exam: PRESENT: normal capillary refill Extremities exam: PRESENT: full ROM. ABSENT: calf tenderness, clubbing, pedal edema Neurological exam: PRESENT: alert, awake, oriented to person, oriented to place, oriented to time, oriented to situation, CN II-XII grossly intact. ABSENT: motor sensory deficit Psychiatric exam: PRESENT: appropriate affect, normal mood. ABSENT: homicidal ideation, suicidal ideation Skin exam: PRESENT: dry, intact, warm. ABSENT: cyanosis, rash Results Laboratory Results: 02/01/20 08:17 02/01/20 08:17 01/31/20 01/31/20 01/31/20 23:20 23:20 23:20 WBC 4.3 RBC 4.12 L Hgb 13.3 L Hct 38.8 MCV 94 MCH 32.4 MCHC 34.4 RDW 13.8 Plt Count 88 L Seg Neutrophils % 82.4 H VBG pH VBG pCO2 VBG HCO3 VBG Base Excess Sodium 138.3 Potassium 4.3 Chloride 105 Carbon Dioxide 23 Anion Gap 10 BUN 20 Creatinine 1.16 Est GFR ( Amer) > 60 Glucose 249 H Lactic Acid 1.4 Calcium 8.7 Ferritin Total Bilirubin 0.6 AST 66 H Alkaline Phosphatase 69 C-Reactive Protein Total Protein 6.2 L Albumin 3.5 Urine Color Urine Appearance Urine pH Ur Specific [place] Urine Protein Urine Glucose (UA) Urine Ketones Urine Blood Urine RBC (Auto) 02/01/20 02/01/20 02/01/20 00:50 02:20 05:19 WBC RBC Hgb Hct MCV MCH MCHC RDW Plt Count Seg Neutrophils % VBG pH 7.34 VBG pCO2 43.1 VBG HCO3 22.9 VBG Base Excess -2.7 Sodium Potassium Chloride Carbon Dioxide Anion Gap BUN Creatinine Est GFR ( Amer) Glucose Lactic Acid 1.2 Calcium Ferritin Total Bilirubin AST Alkaline Phosphatase C-Reactive Protein Total Protein Albumin Urine Color DARK YELLOW Urine Appearance SLIGHTLY-CLOUDY Urine pH 5.0 Ur Specific [place] 1.023 Urine Protein 100 H Urine Glucose (UA) NEGATIVE Urine Ketones NEGATIVE Urine Blood NEGATIVE Urine RBC (Auto) 1 02/01/20 02/01/20 02/01/20 08:17 08:17 08:17 WBC 5.5 RBC 4.05 L Hgb 13.1 L Hct 38.8 MCV 96 MCH 32.3 MCHC 33.7 RDW 13.6 Plt Count 81 L Seg Neutrophils % VBG pH VBG pCO2 VBG HCO3 VBG Base Excess Sodium 134.7 L Potassium 4.7 Chloride 105 Carbon Dioxide 22 Anion Gap 8 BUN 24 H Creatinine 1.34 H Est GFR ( Amer) > 60 Glucose 357 H Lactic Acid Calcium 8.2 L Ferritin 347.00 Total Bilirubin AST Alkaline Phosphatase C-Reactive Protein 74.8 H Total Protein Albumin Urine Color Urine Appearance Urine pH Ur Specific [place] Urine Protein Urine Glucose (UA) Urine Ketones Urine Blood Urine RBC (Auto) 02/01/20 08:17 Creatine Kinase 112 Impressions: Chest X-Ray 02/01/20 00:10 IMPRESSION: No acute disease. Assessment and Plan - Diagnosis (1) Pneumonia due to COVID-19 virus Is this a current diagnosis for this admission?: Yes Plan: COVID positive Chest x-ray showed no acute finding D-dimer 1.20 Ferritin 347, LDH 358, CRP 74.8 Full dose Lovenox r/t d-dimer results. Will discuss recommendation for CTA prior to discharge r/t elevated d-dimer and increased PE risk in setting of COVID prior to discharge. Provide supplemental oxygen as needed maintain saturations greater than 89%. Continue doxycycline, ivermectin x2 doses, dexamethasone, vitamin C, vitamin D, zinc Encourage pulmonary toilet. Isolation precautions. (2) Acute respiratory failure with hypoxia Is this a current diagnosis for this admission?: Yes Plan: Secondary to #1 Improved; now maintaining oxygen saturations on 1-2 lpm via NC Patient denies shortness of breath but his saturation was in the lower 80s during evaluation by EMS Currently requiring 2 L to saturate 92 to 95%, venous blood gas at the ED was not remarkable (3) Diabetes mellitus type 2 in nonobese Is this a current diagnosis for this admission?: Yes Plan: Been A1c 8.3%. Previously treated with glipizide; patient moved himself glipizide and has been attempting to utilize diet control. 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 Patient is placed on a consistent carb diet. Accu-Cheks before meals and at bedtime with Humalog for sliding scale coverage. Hypoglycemia protocol in place. (4) Elevated random blood glucose level Is this a current diagnosis for this admission?: Yes Plan: As above. - Time Time Spent with patient: 35 or more minutes Medications reviewed and adjusted accordingly: Yes Anticipated Discharge Disposition: Home, Self Care Anticipated Discharge Timeframe: within 24 hours
[2020-02-01] MEDS: POLYETHYLENE GLYCOL 3350 POWDER 17 GM/1 PACKET PO ONE ×2 (18:43→20:10)
[2020-02-02] MEDS ORDERED: HALOPERIDOL LACTATE INJ 5 MG/1 ML VIAL ONE (01:46)
[2020-02-02] MEDS ORDERED: HALOPERIDOL LACTATE INJ 5 MG/1 ML VIAL IV ONE (02:15)
[2020-02-02] MEDS: DOXYCYCLINE HYCLATE 100 MG in DEXTROSE 5%-WATER 250 ML IV SCH ×2 (05:25→17:42)
[2020-02-02] MEDS: OXYCODONE HCL IR 5 MG TABLET PO PRN (05:57)
[2020-02-02 06:05] LABS: APPEARANCE,URINE CLEAR; BILIRUBIN,URINE NEGATIVE (NEGATIVE); COLOR,URINE YELLOW; GLUCOSE, URINE >=500 mg/dL (NEGATIVE); KETONES,URINE TRACE mg/dL (NEGATIVE); LEUKOCYTE ESTERASE,URINE NEGATIVE (NEGATIVE); NITRITE,URINE NEGATIVE (NEGATIVE); PROTEIN,URINE 100 mg/dL (NEGATIVE); URINE SPECIFIC GRAVITY 1.018; UROBILINOGEN,URINE NEGATIVE mg/dL (<2.0)
[2020-02-02 06:25] LABS: HEMATOCRIT 39.6 % (37.9-51.0); HEMOGLOBIN 13.8 g/dL (13.5-17.0); MEAN CORPUSCULAR HEMOGLOBIN 32.5 pg (27.0-33.4); MEAN CORPUSCULAR HGB CONC 34.9 g/dL (32.0-36.0); MEAN CORPUSCULAR VOLUME 93 fl (80-97); PLATELET COUNT 101 10^3/uL (150-450); RED BLOOD COUNT 4.26 10^6/uL (4.35-5.55); RED CELL DISTRIBUTION WIDTH 13.8 % (11.5-14.0)
[2020-02-02 06:37] LABS: WHITE BLOOD COUNT 11.4 10^3/uL (4.0-10.5)
[2020-02-02 06:41] LABS: ANION GAP 13 (5-19); BLOOD UREA NITROGEN 22 mg/dL (7-20); CALCIUM 8.9 mg/dL (8.4-10.2); CARBON DIOXIDE 20 mmol/L (22-30); CHLORIDE 107 mmol/L (98-107); GLUCOSE 297 mg/dL (75-110); POTASSIUM 3.9 mmol/L (3.6-5.0)
[2020-02-02] MEDS ORDERED: INFLUENZA QUAD (6MOS+) 2020-21 VAC 0.5 ML SYR IM ONE (08:00)
[2020-02-02 08:18] LABS: ARTERIAL BLOOD BASE EXCESS -5.2 mmol/L; ARTERIAL BLOOD H2CO3 0.99 mmol/L (1.05-1.35); ARTERIAL BLOOD O2 SATURATION 87.4 % (94-98); ARTERIAL BLOOD PH 7.38 (7.35-7.45); ARTERIAL BLOOD PO2 53.3 mmHg (80-100)
[2020-02-02 08:25] LABS: ARTERIAL BLOOD FIO2 10L
[2020-02-02] MEDS ORDERED: IVERMECTIN 3 MG TABLET PO SCH ×2 (10:00)
[2020-02-02] MEDS ORDERED: ZIPRASIDONE MESYLATE INJ/PF 20 MG SDV IM ONE (10:30)
[2020-02-02] MEDS: INSULIN REG, HUMAN 100 UNIT/ML 3 ML VIAL (PYX) SUBCUT SCH ×4 (10:47→22:46)
[2020-02-02] MEDS: ASCORBIC ACID 500 MG TABLET PO SCH ×2 (10:48→20:15)
[2020-02-02] MEDS: CHOLECALCIFEROL (D3) 1,000 UNIT (25 MCG) TABLET PO SCH (10:48)
[2020-02-02] MEDS: ZINC SULFATE 220 MG CAPSULE PO SCH (10:48)
[2020-02-02] MEDS: FAMOTIDINE 20 MG TABLET PO SCH ×2 (10:48→22:46)
[2020-02-02] MEDS ORDERED: ZIPRASIDONE MESYLATE INJ/PF 20 MG SDV IM PRN (12:11)
--- NOTE | 2020-02-02 12:32 | PDOC PROGRESS REPORT ---
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 Patient was seen on morning rounds. He was alert but delirious, restless, and unable to answer orientation questions or follow directions. He frequently attempted to remove his oxygen equipment. The patient experienced rapid and worsening hypoxia overnight. Yesterday afternoon he was maintaining oxygen saturations, while at rest, on 2 L via nasal cannula and this morning was oxygenating in the mid 80s on an Oxymizer at 15 L/min. ABG showed compensated respiratory alkalosis with hypoxia (PaO2 53.3). Patient was provided IM Geodon for delirium and placed on CPAP with immediate improvement in SPO2 to mid 90s. Follow-up ABG pending. ROS is therefore limited. I did discuss the patient's clinical condition with his and daughter. Answered all questions. reports that the patient has had symptoms of depression and frequent nighttime confusion with labile mood over the last year (retired in April due to pandemic). She asked that we start an antidepressant and mood stabilizer prior to his discharge. They do confirm FULL CODE STATUS. Plan of care reviewed with nursing. Reason For Visit: ACUTE RESPIRATORY FAILURE WITH HYPOXIA,COVID Physical Exam Vital Signs: Temp Pulse Resp BP Pulse Ox 97.7 F 90 20 130/74 H 95 02/02/20 07:58 02/02/20 07:58 02/02/20 07:58 02/02/20 07:58 02/02/20 07:58 Intake & Output 02/01/20 02/02/20 02/03/20 06:59 06:59 06:59 Intake Total 1000 1391 Output Total 1020 Balance 1000 371 Weight 86.8 kg 87.3 kg General appearance: PRESENT: mild distress, well-developed, well-nourished - overweight. ABSENT: cooperative Head exam: PRESENT: atraumatic, normocephalic Eye exam: PRESENT: conjunctiva pink, EOMI, PERRLA. ABSENT: scleral icterus Mouth exam: PRESENT: moist, tongue midline Respiratory exam: PRESENT: clear to auscultation jason, symmetrical, tachypnea, other - CPAP w/ FiO2 80%. ABSENT: rales, rhonchi, unlabored, wheezes Cardiovascular exam: PRESENT: RRR. ABSENT: diastolic murmur, rubs, systolic murmur Pulses: PRESENT: normal dorsalis pedis pul Vascular exam: PRESENT: normal capillary refill Extremities exam: PRESENT: full ROM - moves all extremities spontaneously. ABSENT: calf tenderness, clubbing, pedal edema Neurological exam: PRESENT: alert, awake, CN II-XII grossly intact, other - delerium. ABSENT: motor sensory deficit Psychiatric exam: PRESENT: agitated, anxious Skin exam: PRESENT: dry, intact, warm. ABSENT: cyanosis, rash Results Laboratory Results: 02/02/20 05:56 02/02/20 05:56 02/02/20 02/02/20 02/02/20 05:50 05:56 05:56 WBC 11.4 H D RBC 4.26 L Hgb 13.8 Hct 39.6 MCV 93 MCH 32.5 MCHC 34.9 RDW 13.8 Plt Count 101 L Carbonic Acid HCO3/H2CO3 Ratio ABG pH ABG pCO2 ABG pO2 ABG HCO3 ABG O2 Saturation ABG Base Excess FiO2 Sodium 139.8 Potassium 3.9 Chloride 107 Carbon Dioxide 20 L Anion Gap 13 BUN 22 H Creatinine 0.98 Est GFR ( Amer) > 60 Glucose 297 H Calcium 8.9 Ferritin C-Reactive Protein Urine Color YELLOW Urine Appearance CLEAR Urine pH 5.0 Ur Specific [place] 1.018 Urine Protein 100 H Urine Glucose (UA) >=500 H Urine Ketones TRACE H Urine Blood NEGATIVE Urine Nitrite NEGATIVE Ur Leukocyte Esterase NEGATIVE Urine WBC (Auto) 1 Urine RBC (Auto) 0 02/02/20 02/02/20 05:56 08:00 WBC RBC Hgb Hct MCV MCH MCHC RDW Plt Count Carbonic Acid 0.99 L HCO3/H2CO3 Ratio 19:1 ABG pH 7.38 ABG pCO2 33.0 L ABG pO2 53.3 L ABG HCO3 19.0 L ABG O2 Saturation 87.4 L ABG Base Excess -5.2 FiO2 10L Sodium Potassium Chloride Carbon Dioxide Anion Gap BUN Creatinine Est GFR ( Amer) Glucose Calcium Ferritin 514.00 H C-Reactive Protein 70.0 H Urine Color Urine Appearance Urine pH Ur Specific [place] Urine Protein Urine Glucose (UA) Urine Ketones Urine Blood Urine Nitrite Ur Leukocyte Esterase Urine WBC (Auto) Urine RBC (Auto) 12/20/20 08:17 Creatine Kinase 112 Impressions: Chest X-Ray 02/01/20 00:10 IMPRESSION: No acute disease. Assessment and Plan - Diagnosis (1) Pneumonia due to COVID-19 virus Is this a current diagnosis for this admission?: Yes Plan: COVID positive Chest x-ray showed no acute finding D-dimer 1.20-> 1.40 Ferritin 347-> 514 LDH 358-> 520 CRP 74.8-> 70 Full dose Lovenox r/t d-dimer results. Trend d.dimer and consider CTA prior to discharge r/t elevated d-dimer and increased PE risk in setting of COVID prior to discharge to determine need for continued anticoagulation. Provide supplemental oxygen as needed maintain saturations greater than 89%. Continue doxycycline Received ivermectin x2 doses Continue Iv Solu-medrol Vitamin C, vitamin D, zinc supplementation Encourage pulmonary toilet. Isolation precautions. (2) Acute respiratory failure with hypoxia Is this a current diagnosis for this admission?: Yes Plan: Secondary to #1 Worsened precipitously overnight. ABG this morning on Oxymizer at 10 L/min showed compensated respiratory alkalosis with a PaO2 of 53.3. He was placed on CPAP with an FiO2 of 80%. His SPO2 is improved to the mid 90s. Repeat ABG is pending. Confirmed with family that the patient is a full code. Remaining management as above. (3) Diabetes mellitus type 2 in nonobese Is this a current diagnosis for this admission?: Yes Plan: Been A1c 8.3%. Previously treated with glipizide; patient moved himself glipizide and has been attempting to utilize diet control. 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 Patient is placed on a consistent carb diet. Accu-Cheks before meals and at bedtime with Humalog for sliding scale coverage. Hypoglycemia protocol in place. (4) Elevated random blood glucose level Is this a current diagnosis for this admission?: Yes Plan: As above. (5) Chronic back pain Qualifiers: Back pain location: back pain in unspecified location Back pain laterality: unspecified Qualified Code(s): M54.9 - Dorsalgia, unspecified; G89.29 - Other chronic pain Is this a current diagnosis for this admission?: Yes Plan: Continue home dose oxycodone. (6) Acute delirium Is this a current diagnosis for this admission?: Yes Plan: Multifactorial secondary to acute infection, hypoxia, steroid use, and per family, gradually worsening depression with labile mood. Possibly early dementia. Trial of Haldol overnight was ineffective. Ultimately, patient required soft limb restraints and mittens due to his frequent removing of oxygen facemask. Trial of IM Geodon has thus far been effective. We will continue Geodon 10 mg IM every 8 hours as needed. Discussed with family, they are aware of need for restraints and have no objections at this time. Remaining management as above. - Time Time Spent with patient: 35 or more minutes Medications reviewed and adjusted accordingly: Yes Anticipated Discharge Disposition: TBD Anticipated Discharge Timeframe: TBD
[2020-02-02] MEDS: ENOXAPARIN SODIUM INJ 100 MG/1 ML DISP.SYRIN SUBCUT SCH ×2 (12:45→22:46)
[2020-02-02] MEDS: METHYLPREDNISOLONE INJ 40 MG/1 ML SDV IV SCH ×2 (12:54→22:46)
[2020-02-02 14:13] LABS: ARTERIAL BLOOD H2CO3 0.95 mmol/L (1.05-1.35); ARTERIAL BLOOD HCO3 19.6 mmol/L (20-24); ARTERIAL BLOOD O2 SATURATION 97.5 % (94-98); ARTERIAL BLOOD PCO2 31.7 mmHg (35-45); ARTERIAL BLOOD PH 7.41 (7.35-7.45); ARTERIAL BLOOD TOTAL CO2 20.6 mmol/L (23-27)
[2020-02-02 14:14] LABS: ARTERIAL BLOOD FIO2 85%
[2020-02-02] MEDS: DIVALPROEX SODIUM 250 MG TAB.SR.24H PO SCH (22:46)
[2020-02-03 05:26] LABS: HEMATOCRIT 41.2 % (37.9-51.0); HEMOGLOBIN 14.2 g/dL (13.5-17.0); MEAN CORPUSCULAR HEMOGLOBIN 31.8 pg (27.0-33.4); MEAN CORPUSCULAR HGB CONC 34.6 g/dL (32.0-36.0); MEAN CORPUSCULAR VOLUME 92 fl (80-97); PLATELET COUNT 122 10^3/uL (150-450); RED BLOOD COUNT 4.48 10^6/uL (4.35-5.55); RED CELL DISTRIBUTION WIDTH 13.6 % (11.5-14.0); WHITE BLOOD COUNT 11.2 10^3/uL (4.0-10.5)
[2020-02-03] MEDS: DOXYCYCLINE HYCLATE 100 MG in DEXTROSE 5%-WATER 250 ML IV SCH ×2 (05:39→18:02)
[2020-02-03 05:51] LABS: ANION GAP 12 (5-19); BLOOD UREA NITROGEN 23 mg/dL (7-20); CARBON DIOXIDE 22 mmol/L (22-30); CHLORIDE 109 mmol/L (98-107); GLUCOSE 247 mg/dL (75-110); POTASSIUM 4.3 mmol/L (3.6-5.0)
[2020-02-03] MEDS: ZIPRASIDONE MESYLATE INJ/PF 20 MG SDV IM PRN (10:01)
[2020-02-03] MEDS: INSULIN REG, HUMAN 100 UNIT/ML 3 ML VIAL (PYX) SUBCUT SCH ×4 (11:20→21:48)
[2020-02-03] MEDS: ENOXAPARIN SODIUM INJ 100 MG/1 ML DISP.SYRIN SUBCUT SCH ×2 (11:21→21:39)
[2020-02-03] MEDS: METHYLPREDNISOLONE INJ 40 MG/1 ML SDV IV SCH ×2 (11:21→21:39)
[2020-02-03] MEDS: ASCORBIC ACID 500 MG TABLET PO SCH ×2 (11:31→18:39)
[2020-02-03] MEDS: FAMOTIDINE 20 MG TABLET PO SCH ×2 (11:31→21:39)
[2020-02-03] MEDS: ESCITALOPRAM OXALATE 10 MG TABLET PO SCH (11:31)
[2020-02-03] MEDS: DIVALPROEX SODIUM 250 MG TAB.SR.24H PO SCH ×2 (11:31→21:39)
[2020-02-03] MEDS: CHOLECALCIFEROL (D3) 1,000 UNIT (25 MCG) TABLET PO SCH (11:32)
[2020-02-03] MEDS: ZINC SULFATE 220 MG CAPSULE PO SCH (11:32)
--- NOTE | 2020-02-03 14:21 | PDOC PROGRESS REPORT ---
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 Patient seen on morning rounds. He is sleeping when I enter the room he awakens to his name and shortly falls back asleep. He was unable to answer orientation questions or follow directions. Per nursing patient continued to express agitation this morning in which he became physical with the nurse pushing and pinching. He is currently in for restraints and received a dose of Geodon. Dose of Geodon likely the cause of somnolence. ROS is therefor limited. Additionally nurse states that patient refusing p.o. medications and meals. Unknown as to last time he ate. He is on hypoglycemic protocol, will continue to monitor closely. He remains on CPAP SPO2 and upper 90s. Reason For Visit: ACUTE RESPIRATORY FAILURE WITH HYPOXIA,COVID Physical Exam Vital Signs: Temp Pulse Resp BP Pulse Ox 97.5 F 91 32 H 160/84 H 98 02/03/20 03:45 02/03/20 03:45 02/03/20 08:00 02/03/20 03:45 02/03/20 08:00 Intake & Output 02/02/20 02/03/20 02/04/20 06:59 06:59 06:59 Intake Total 1391 500 Output Total 1020 Balance 371 500 Weight 87.3 kg 84.7 kg Additional comments: General appearance: PRESENT: well-developed, well-nourished - overweight. He is not cooperative with exam as he is somnolent. Head exam: PRESENT: atraumatic, normocephalic Eye exam: PRESENT: conjunctiva pink, EOMI, PERRLA. ABSENT: scleral icterus Mouth exam: PRESENT: moist, tongue midline Respiratory exam: PRESENT: clear to auscultation jason, symmetrical, tachypnea, other - CPAP w/ FiO2 85%. ABSENT: rales, rhonchi, unlabored, wheezes Cardiovascular exam: PRESENT: RRR. ABSENT: diastolic murmur, rubs, systolic murmur Pulses: PRESENT: normal dorsalis pedis pul Vascular exam: PRESENT: normal capillary refill Extremities exam: PRESENT: full ROM - moves all extremities spontaneously. ABSE NT: pedal edema Neurological exam: PRESENT: Somnolent but awakens to his name. Falls back asleep quickly. Alert. Altered. Skin exam: PRESENT: dry, intact, warm. ABSENT: cyanosis, rash Results Laboratory Results: 02/03/20 04:48 02/03/20 04:48 02/02/20 02/03/20 02/03/20 13:40 04:48 04:48 WBC 11.2 H RBC 4.48 Hgb 14.2 Hct 41.2 MCV 92 MCH 31.8 MCHC 34.6 RDW 13.6 Plt Count 122 L Carbonic Acid 0.95 L HCO3/H2CO3 Ratio 20:1 ABG pH 7.41 ABG pCO2 31.7 L ABG pO2 96.0 ABG HCO3 19.6 L ABG O2 Saturation 97.5 ABG Base Excess -4.0 FiO2 85% Sodium 142.6 Potassium 4.3 Chloride 109 H Carbon Dioxide 22 Anion Gap 12 BUN 23 H Creatinine 0.88 Est GFR ( Amer) > 60 Glucose 247 H Calcium 9.0 02/01/20 08:17 Creatine Kinase 112 Impressions: Chest X-Ray 02/01/20 00:10 IMPRESSION: No acute disease. Assessment and Plan - Diagnosis (1) Pneumonia due to COVID-19 virus Is this a current diagnosis for this admission?: Yes Plan: COVID positive Chest x-ray showed no acute finding D-dimer 1.20-> 1.40 Ferritin 347-> 514 LDH 358-> 520 CRP 74.8-> 70 Full dose Lovenox r/t d-dimer results. - Trend d.dimer - Consider CTA prior to discharge r/t elevated d-dimer and increased PE risk in setting of COVID - [place] [facility] anticoagulant due to increased PE risk Cnt CPAP. O2 goal is >88%. Continue doxycycline day 2 Received ivermectin x2 doses Continue Iv Solu-medrol day 2 Vitamin C, vitamin D, zinc supplementation Encourage pulmonary toilet. Isolation precautions. (2) Leukocytosis Qualifiers: Leukocytosis type: unspecified Qualified Code(s): D72.829 - Elevated white blood cell count, unspecified Is this a current diagnosis for this admission?: Yes Plan: Elevated WBC 11.2. Etiology multifocal in nature, pneumonia, COVID-19 steroids. Treatment as above #1. Monitor daily CBC. (3) Acute respiratory failure with hypoxia Is this a current diagnosis for this admission?: Yes Plan: Secondary to #1 Cnt CPAP FiO2 85% with O2 sats >95% consistently. Noted improvement inABG yesterday, repeat today. Remaining management as above. (4) Diabetes mellitus type 2 in nonobese Is this a current diagnosis for this admission?: Yes Plan: Been A1c 8.3%. - Previously treated with glipizide with diet control Patient is placed on a consistent carb diet. Accu-Cheks before meals and at bedtime with Humalog for sliding scale coverage. Hypoglycemia protocol in place. (5) Elevated random blood glucose level Is this a current diagnosis for this admission?: Yes Plan: As above. (6) Chronic back pain Qualifiers: Back pain location: back pain in unspecified location Back pain laterality: unspecified Qualified Code(s): M54.9 - Dorsalgia, unspecified; G89.29 - Other chronic pain Is this a current diagnosis for this admission?: Yes Plan: Continue home dose oxycodone. (7) Acute delirium Is this a current diagnosis for this admission?: Yes Plan: Cognition on the likely multifactorial secondary to acute infection, hypoxia, steroid use, and per family, gradually worsening depression with labile mood. Possibly early dementia. Trial of Haldol previously ineffective as per previous provider. Currently with soft limb restraints secondary to agitation and alcohol nature towards nursing staff. IM Geodon continues to be effective. We will continue Geodon 10 mg IM every 8 hours as needed. Remaining management as above. Patient refusing by mouth medications as per nursing. Additionally refusing food. Secondary to agitation. Unfortunately due to recent need for Geodon patient somnolent and is unable to discuss this with Patient. - Change PO medications to IV as appropriate - Time Time Spent with patient: 25-34 minutes Medications reviewed and adjusted accordingly: Yes Anticipated Discharge Disposition: TBD Anticipated Discharge Timeframe: TBD
[2020-02-03] MEDS ORDERED: LABETALOL HCL INJ 20 MG/4 ML DISP.SYRIN IV ONE (17:30)
[2020-02-03 17:35] LABS: ARTERIAL BLOOD H2CO3 1.04 mmol/L (1.05-1.35); ARTERIAL BLOOD HCO3 21.9 mmol/L (20-24); ARTERIAL BLOOD O2 SATURATION 96.5 % (94-98); ARTERIAL BLOOD PCO2 34.7 mmHg (35-45); ARTERIAL BLOOD PH 7.42 (7.35-7.45); ARTERIAL BLOOD PO2 84.1 mmHg (80-100); ARTERIAL BLOOD TOTAL CO2 22.9 mmol/L (23-27)
[2020-02-03 17:36] LABS: ARTERIAL BLOOD FIO2 85%
[2020-02-03] MEDS: OXYCODONE HCL IR 5 MG TABLET PO PRN (21:44)
[2020-02-03] MEDS ORDERED: METOPROLOL TARTRATE PF/INJ 5 MG/5 ML SDV IV ONE (22:45)
[2020-02-04] MEDS ORDERED: DIGOXIN INJ 0.5 MG/2 ML AMPULE ONE (01:45)
[2020-02-04] MEDS ORDERED: DIGOXIN INJ 0.5 MG/2 ML AMPULE IV ONE (02:00)
[2020-02-04] MEDS: ZIPRASIDONE MESYLATE INJ/PF 20 MG SDV IM PRN (02:19)
[2020-02-04] MEDS: METOPROLOL TARTRATE PF/INJ 5 MG/5 ML SDV IV SCH ×4 (03:04→23:33)
[2020-02-04] MEDS: DOXYCYCLINE HYCLATE 100 MG in DEXTROSE 5%-WATER 250 ML IV SCH ×2 (05:11→18:35)
[2020-02-04 05:29] LABS: HEMATOCRIT 41.3 % (37.9-51.0); HEMOGLOBIN 14.2 g/dL (13.5-17.0); MEAN CORPUSCULAR HGB CONC 34.4 g/dL (32.0-36.0); MEAN CORPUSCULAR VOLUME 93 fl (80-97); PLATELET COUNT 143 10^3/uL (150-450); RED BLOOD COUNT 4.44 10^6/uL (4.35-5.55); RED CELL DISTRIBUTION WIDTH 13.6 % (11.5-14.0); WHITE BLOOD COUNT 13.7 10^3/uL (4.0-10.5)
[2020-02-04 05:56] LABS: ANION GAP 9 (5-19); BLOOD UREA NITROGEN 28 mg/dL (7-20); C-REACTIVE PROTEIN 28.7 mg/L (<10.0); CALCIUM 8.9 mg/dL (8.4-10.2); CARBON DIOXIDE 23 mmol/L (22-30); CHLORIDE 110 mmol/L (98-107); GLUCOSE 279 mg/dL (75-110); POTASSIUM 4.2 mmol/L (3.6-5.0)
--- NOTE | 2020-02-04 07:20 | EKG REPORT ---
SEVERITY:- ABNORMAL ECG - ATRIAL FIBRILLATION BORDERLINE LEFT AXIS DEVIATION REPOLARIZATION ABNORMALITY, PROB RATE RELATED BORDERLINE PROLONGED QT INTERVAL : Confirmed by: Davion Douglas MD 04-Feb-2020 07:19:28
[2020-02-04] MEDS: INSULIN REG, HUMAN 100 UNIT/ML 3 ML VIAL (PYX) SUBCUT SCH ×5 (08:00→23:34)
[2020-02-04] MEDS: CHOLECALCIFEROL (D3) 1,000 UNIT (25 MCG) TABLET PO SCH (10:52)
[2020-02-04] MEDS: ZINC SULFATE 220 MG CAPSULE PO SCH (10:52)
[2020-02-04] MEDS: ESCITALOPRAM OXALATE 10 MG TABLET PO SCH (10:53)
[2020-02-04] MEDS: DIVALPROEX SODIUM 250 MG TAB.SR.24H PO SCH ×2 (10:53→23:29)
[2020-02-04] MEDS: FAMOTIDINE 20 MG TABLET PO SCH ×2 (10:53→23:30)
[2020-02-04] MEDS: METOPROLOL SUCCINATE 50 MG TAB.SR.24H PO SCH (10:53)
[2020-02-04] MEDS: ASCORBIC ACID 500 MG TABLET PO SCH ×2 (10:53→18:39)
[2020-02-04] MEDS: DEXAMETHASONE 4 MG TABLET PO SCH (10:53)
[2020-02-04] MEDS: ENOXAPARIN SODIUM INJ 100 MG/1 ML DISP.SYRIN SUBCUT SCH ×2 (10:54→23:34)
[2020-02-04] MEDS: ACETAMINOPHEN 325 MG TABLET PO SCH ×3 (10:54→18:38)
[2020-02-04] MEDS: OLANZAPINE 2.5 MG TABLET PO SCH (12:24)
--- NOTE | 2020-02-04 15:20 | EKG REPORT ---
SEVERITY:- ABNORMAL ECG - ATRIAL FIBRILLATION, V-RATE 92-169 BORDERLINE T ABNORMALITIES, ANT-LAT LEADS PROLONGED QT INTERVAL : Confirmed by: Davion Douglas MD 04-Feb-2020 15:20:01
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
--- NOTE | 2020-02-04 18:26 | ADVANCED CARE ---
- Diagnosis (1) Agitation Diagnosis Current: Yes (2) Dehydration Diagnosis Current: Yes (3) Prolonged QT interval Diagnosis Current: Yes (4) Acute delirium Diagnosis Current: Yes (5) COVID-19 Diagnosis Current: Yes (6) Leukocytosis Diagnosis Current: Yes (7) Acute respiratory failure with hypoxia Diagnosis Current: Yes (8) Chronic back pain Diagnosis Current: Yes (9) Diabetes mellitus type 2 in nonobese Diagnosis Current: Yes (10) Fever Diagnosis Current: Yes Attendance: Ev (daughter) Monique (daughter) Shawn (son-in-law) (family friend) Resuscitation Status: Do Not Resuscitate Discussion: Discussion held via phone with multiple family members. Thanh and his both have Covid. His is also frail/elderly and doing poorly at home. We discussed that, given his age alone, he is at high risk for poor outcomes and even during this hospital stay. They are very understanding and concerned about how he is doing. They are most concerned about his agitation/delirium and want him to be kept as comfortable as possible. We discussed my concerns for his agitation, prolonged QTc and high risk for arrhythmias both due to Covid as well as his prolonged QTc, especially in the s/o requiring antipsychotic medications which also prolong the QT. Again, his family is understanding of the difficult situation and reiterated that their main goal is to make sure that he is safe, not harming himself and as comfortable as possible. They understand that we may at times have to use QT- prolonging drugs, and we will do everything we can to minimize their use, but we will not be able to avoid using them altogether. After reviewing Dr. Law's advance directives together, his and children would like to change his code status to DNR/DNI. They would like to continue doing everything possible to make sure he can come back home, but if he should decline to the point of requiring intubation or CPR, they would not want those things. Time Spent: >45 minutes
[2020-02-04] MEDS: INSULIN GLARGINE,HUM.REC.ANLOG 1,000 UNIT/10 ML VIAL SUBCUT SCH (23:34)
[2020-02-05] MEDS: METOPROLOL TARTRATE PF/INJ 5 MG/5 ML SDV IV SCH (03:30)
[2020-02-05 04:27] LABS: APPEARANCE,URINE CLEAR; BILIRUBIN,URINE NEGATIVE (NEGATIVE); COLOR,URINE YELLOW; GLUCOSE, URINE NEGATIVE (NEGATIVE); KETONES,URINE NEGATIVE (NEGATIVE); LEUKOCYTE ESTERASE,URINE NEGATIVE (NEGATIVE); NITRITE,URINE NEGATIVE (NEGATIVE); PROTEIN,URINE 100 mg/dL (NEGATIVE)
[2020-02-05 05:46] LABS: ANION GAP 8 (5-19); BLOOD UREA NITROGEN 39 mg/dL (7-20); CALCIUM 8.8 mg/dL (8.4-10.2); CARBON DIOXIDE 25 mmol/L (22-30); CHLORIDE 111 mmol/L (98-107); GLUCOSE 225 mg/dL (75-110)
[2020-02-05] MEDS: DOXYCYCLINE HYCLATE 100 MG in DEXTROSE 5%-WATER 250 ML IV SCH ×2 (08:25→18:47)
[2020-02-05] MEDS: INSULIN REG, HUMAN 100 UNIT/ML 3 ML VIAL (PYX) SUBCUT SCH ×4 (08:57→22:00)
[2020-02-05] MEDS: ESCITALOPRAM OXALATE 10 MG TABLET PO SCH (11:06)
[2020-02-05] MEDS: DEXAMETHASONE 4 MG TABLET PO SCH (11:06)
[2020-02-05] MEDS: DIVALPROEX SODIUM 250 MG TAB.SR.24H PO SCH ×2 (11:06→21:23)
[2020-02-05] MEDS: CHOLECALCIFEROL (D3) 1,000 UNIT (25 MCG) TABLET PO SCH (11:07)
[2020-02-05] MEDS: FAMOTIDINE 20 MG TABLET PO SCH ×2 (11:07→21:23)
[2020-02-05] MEDS: OLANZAPINE 2.5 MG TABLET PO SCH (11:07)
[2020-02-05] MEDS: ACETAMINOPHEN 325 MG TABLET PO SCH ×3 (11:07→18:46)
[2020-02-05] MEDS: ASCORBIC ACID 500 MG TABLET PO SCH ×2 (11:07→18:46)
[2020-02-05] MEDS: ZINC SULFATE 220 MG CAPSULE PO SCH (11:07)
[2020-02-05] MEDS: METOPROLOL SUCCINATE 50 MG TAB.SR.24H PO SCH (11:07)
[2020-02-05] MEDS: ENOXAPARIN SODIUM INJ 100 MG/1 ML DISP.SYRIN SUBCUT SCH ×2 (11:09→22:14)
[2020-02-05] MEDS: NORMAL SALINE 1000 ML 1,000 ML IV PRN (14:29)
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
[2020-02-05] MEDS: INSULIN GLARGINE,HUM.REC.ANLOG 1,000 UNIT/10 ML VIAL SUBCUT SCH (22:00)
[2020-02-06 05:43] LABS: HEMATOCRIT 40.2 % (37.9-51.0); HEMOGLOBIN 14.1 g/dL (13.5-17.0); MEAN CORPUSCULAR HEMOGLOBIN 32.3 pg (27.0-33.4); MEAN CORPUSCULAR HGB CONC 34.9 g/dL (32.0-36.0); MEAN CORPUSCULAR VOLUME 92 fl (80-97); PLATELET COUNT 156 10^3/uL (150-450); RED BLOOD COUNT 4.36 10^6/uL (4.35-5.55); RED CELL DISTRIBUTION WIDTH 13.4 % (11.5-14.0); WHITE BLOOD COUNT 12.9 10^3/uL (4.0-10.5)
[2020-02-06] MEDS: DOXYCYCLINE HYCLATE 100 MG in DEXTROSE 5%-WATER 250 ML IV SCH ×2 (05:45→18:00)
[2020-02-06] MEDS: NORMAL SALINE 1000 ML 1,000 ML IV PRN (05:48)
[2020-02-06 06:10] LABS: ANION GAP 11 (5-19); BLOOD UREA NITROGEN 37 mg/dL (7-20); CALCIUM 8.5 mg/dL (8.4-10.2); CARBON DIOXIDE 21 mmol/L (22-30); CHLORIDE 114 mmol/L (98-107); GLUCOSE 202 mg/dL (75-110); POTASSIUM 3.6 mmol/L (3.6-5.0)
[2020-02-06 07:00] LABS: APPEARANCE,URINE CLEAR; BILIRUBIN,URINE NEGATIVE (NEGATIVE); COLOR,URINE YELLOW; GLUCOSE, URINE NEGATIVE (NEGATIVE); KETONES,URINE TRACE mg/dL (NEGATIVE); LEUKOCYTE ESTERASE,URINE NEGATIVE (NEGATIVE); NITRITE,URINE NEGATIVE (NEGATIVE); PROTEIN,URINE 30 mg/dL (NEGATIVE); URINE SPECIFIC GRAVITY 1.027; UROBILINOGEN,URINE NEGATIVE mg/dL (<2.0)
[2020-02-06] MEDS: FAMOTIDINE 20 MG TABLET PO SCH ×2 (09:55→22:40)
[2020-02-06] MEDS: ASCORBIC ACID 500 MG TABLET PO SCH ×2 (09:55→17:44)
[2020-02-06] MEDS: METOPROLOL SUCCINATE 50 MG TAB.SR.24H PO SCH (09:55)
[2020-02-06] MEDS: ZINC SULFATE 220 MG CAPSULE PO SCH (09:55)
[2020-02-06] MEDS: ESCITALOPRAM OXALATE 10 MG TABLET PO SCH (09:55)
[2020-02-06] MEDS: CHOLECALCIFEROL (D3) 1,000 UNIT (25 MCG) TABLET PO SCH (09:55)
[2020-02-06] MEDS: ACETAMINOPHEN 325 MG TABLET PO SCH ×3 (09:55→17:34)
[2020-02-06] MEDS: DIVALPROEX SODIUM 250 MG TAB.SR.24H PO SCH ×2 (09:55→22:40)
[2020-02-06] MEDS: ENOXAPARIN SODIUM INJ 100 MG/1 ML DISP.SYRIN SUBCUT SCH ×2 (09:59→22:42)
[2020-02-06] MEDS ORDERED: DEXAMETHASONE SOD PHOS INJ 10 MG/1 ML VIAL IV SCH (10:00)
[2020-02-06] MEDS: INSULIN REG, HUMAN 100 UNIT/ML 3 ML VIAL (PYX) SUBCUT SCH ×4 (10:01→22:42)
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
[2020-02-06] MEDS ORDERED: POTASSI CL 20 MEQ/1/2NS 1L 20 MEQ/1,000 ML RTUINJ IV PRN (16:59)
[2020-02-06] MEDS ORDERED: INSULIN GLARGINE,HUM.REC.ANLOG 1,000 UNIT/10 ML VIAL (PYX) SUBCUT PRN (17:18)
[2020-02-06] MEDS ORDERED: OLANZAPINE INJ/PF 10 MG SDV IM PRN (17:39)
[2020-02-06] MEDS: POTASSI CL 20 MEQ/50 ML RIDER 20 MEQ/50 ML RTUPB IV SCH ×2 (19:01→21:01)
[2020-02-06] MEDS ORDERED: INSULIN GLARGINE,HUM.REC.ANLOG 1,000 UNIT/10 ML VIAL SUBCUT SCH (22:00)
[2020-02-07 05:33] LABS: HEMATOCRIT 40.2 % (37.9-51.0); HEMOGLOBIN 13.9 g/dL (13.5-17.0); MEAN CORPUSCULAR HEMOGLOBIN 32.1 pg (27.0-33.4); MEAN CORPUSCULAR HGB CONC 34.5 g/dL (32.0-36.0); MEAN CORPUSCULAR VOLUME 93 fl (80-97); PLATELET COUNT 165 10^3/uL (150-450); RED BLOOD COUNT 4.32 10^6/uL (4.35-5.55); RED CELL DISTRIBUTION WIDTH 13.5 % (11.5-14.0)
[2020-02-07] MEDS: DOXYCYCLINE HYCLATE 100 MG in DEXTROSE 5%-WATER 250 ML IV SCH ×2 (05:45→18:27)
[2020-02-07 06:01] LABS: ANION GAP 10 (5-19); BLOOD UREA NITROGEN 33 mg/dL (7-20); C-REACTIVE PROTEIN 66.9 mg/L (<10.0); CALCIUM 8.6 mg/dL (8.4-10.2); CARBON DIOXIDE 23 mmol/L (22-30); CHLORIDE 114 mmol/L (98-107); GLUCOSE 174 mg/dL (75-110); POTASSIUM 3.8 mmol/L (3.6-5.0)
--- NOTE | 2020-02-07 08:34 | EKG REPORT ---
SEVERITY:- ABNORMAL ECG - SINUS RHYTHM BORDERLINE T ABNORMALITIES, DIFFUSE LEADS, NEW SINCE 02/04/20 EKG. CLINICAL CORRELATION NEEDED. QT IS NOT PROLONGED. : Confirmed by: Davion Douglas MD 07-Feb-2020 08:33:51
--- NOTE | 2020-02-07 09:50 | PDOC PROGRESS REPORT ---
Subjective Date:: 02/07/20 Subjective:: Patient actually did acknowledge my presence but did not open his eyes. He did mumble answers to questions. Could not comprehend his answers. Reason For Visit: ACUTE RESPIRATORY FAILURE WITH HYPOXIA,COVID Physical Exam Vital Signs: Temp Pulse Resp BP Pulse Ox 99.7 F 102 H 18 155/87 H 93 02/07/20 03:47 02/07/20 03:47 02/07/20 03:47 02/07/20 03:47 02/07/20 03:47 Intake & Output 02/06/20 02/07/20 02/08/20 06:59 06:59 06:59 Intake Total 1750 1150 Output Total 1000 1400 Balance 750 -250 Weight 84.5 kg 84.7 kg General appearance: PRESENT: mild distress, well-developed. ABSENT: cooperative Head exam: PRESENT: atraumatic, normocephalic Ear exam: PRESENT: normal external ear exam. ABSENT: bleeding, drainage Respiratory exam: PRESENT: rales - Faint sporadic rales, symmetrical, unlabored. ABSENT: accessory muscle use, prolonged expiratory phas, rhonchi, tachypnea, wheezes Cardiovascular exam: PRESENT: RRR, +S1, +S2. ABSENT: bradycardia, diastolic murmur, irregular rhythm, systolic murmur, tachycardia GI/Abdominal exam: PRESENT: normal bowel sounds, soft. ABSENT: distended, tende rness Rectal exam: PRESENT: deferred Gentrourinary exam: PRESENT: indwelling catheter Extremities exam: ABSENT: pedal edema Musculoskeletal exam: ABSENT: ambulatory Neurological exam: PRESENT: awake, other - Unable to assess. ABSENT: alert Psychiatric exam: PRESENT: flat affect, other - Remains in restraints as there is a danger of dislodging IVs Focused psych exam: PRESENT: other - Somnolent Skin exam: PRESENT: other - Ecchymosis left upper arm Results Laboratory Results: 02/07/20 04:56 02/07/20 04:56 02/06/20 02/07/20 02/07/20 04:54 04:56 04:56 WBC 18.0 H RBC 4.32 L Hgb 13.9 Hct 40.2 MCV 93 MCH 32.1 MCHC 34.5 RDW 13.5 Plt Count 165 Sodium 146.8 H Potassium 3.8 Chloride 114 H Carbon Dioxide 23 Anion Gap 10 BUN 33 H Creatinine 0.92 Est GFR ( Amer) > 60 Glucose 174 H Calcium 8.6 Magnesium 2.3 2.2 Ferritin 458.00 C-Reactive Protein 66.9 H 02/01/20 08:17 Creatine Kinase 112 Impressions: Chest X-Ray 02/01/20 00:10 IMPRESSION: No acute disease. Assessment and Plan - Diagnosis (1) Agitation Is this a current diagnosis for this admission?: Yes (2) Dehydration Is this a current diagnosis for this admission?: Yes (3) Prolonged QT interval Is this a current diagnosis for this admission?: Yes (4) Acute delirium Is this a current diagnosis for this admission?: Yes (5) COVID-19 Is this a current diagnosis for this admission?: Yes (6) Leukocytosis Qualifiers: Leukocytosis type: unspecified Qualified Code(s): D72.829 - Elevated white blood cell count, unspecified Is this a current diagnosis for this admission?: Yes (7) Acute respiratory failure with hypoxia Is this a current diagnosis for this admission?: Yes (8) Chronic back pain Qualifiers: Back pain location: back pain in unspecified location Back pain laterality: unspecified Qualified Code(s): M54.9 - Dorsalgia, unspecified; G89.29 - Other chronic pain Is this a current diagnosis for this admission?: Yes (9) Diabetes mellitus type 2 in nonobese Is this a current diagnosis for this admission?: Yes (10) Fever Qualifiers: Encounter type: initial encounter Is this a current diagnosis for this admission?: Yes - Plan Summary Summary: COVID-19 virus infection Acute respiratory failure with hypoxemia - CXR showed no acute finding - labs: * D-dimer 1.20 --> 1.26 * Ferritin 347 --> 514 * LDH 358 --> 574 * CRP 74.8 --> 28.7 - continue therapeutic dose Lovenox - he has been weaned off CPAP and is now on high flow, will continue to wean down FiO2 as tolerated - s/p Ivermectin x2 doses - continue doxycycline (day 4/5) - continue dexamethasone (day 4/10) - continue Vitamin C, vitamin D, zinc supplementation - encourage pulmonary toilet - isolation precautions Dehydration: due to poor oral intake in the s/o delirium/agitation and hyperglycemia. - gentle IVF hydration therapy - encourage oral intake Leukocytosis: multifactorial, due to COVID-19, stress, steroids and possibly also hemoconcentration, as he does appear quite dry on exam. - continue treatment as per above, and recheck CBC tomorrow Acute, agitated delirium: multifactorial secondary to acute infection, hypoxia, steroid use, and age. He has a known history of delirium during prior hospitalizations, per his family. During this hospitalization, he has been repeatedly physically violent towards staff. He is at risk of hurting himself either with a fall or because of removing his oxygen mask, causing severe hypoxemia. He has a prolonged QTc on EKG, but unfortunately our hands are tied because he requires antipsychotics to help control his behaviors. Without the u se of antipsychotic therapy, he is at risk for hurting himself, falling, and having worse outcomes due to severe hypoxemia. I spoke with the family at length and they are aware of his prolonged QTc, and that this potentially puts him at risk for an arrhythmia. He is being monitored on telemetry and we are doing frequent EKGs (when he permits) to monitor the QT interval. We are limiting the use of antipsychotics as much as possible. - currently with soft limb restraints - Geodon IM PRN agitation (use sparingly given prolonged QTc) - frequent reorientation - I have asked his family to bring in pictures and any other familiar objects - unfortunately, we can not have family come visit the Covid unit, although this would be ideal to help calm him down - avoid benzodiazepines as this class of medications is known to worsen agitation in the elderly - minimize opioids and other narcotic pain medications as much as possible Prolonged QT - continuous telemetry - frequent EKGs, especially after administration of QT prolonging medications - minimize the use of QT-prolonging medications as much as possible Atrial Fibrillation with RVR: now in sinus rhythm - continue toprol XL 100 mg PO daily - he is on anticoagulation with Lovenox and should be discharged on Eliquis Diabetes mellitus type 2 complicated by Hyperglycemia: A1c 8.3%, hyperglycemia exacerbated by steroids. He has been intermittently refusing insulin. - previously treated with glipizide and diet - continue consistent carb diet - continue Lantus 12 units HS - continue SSI ACHS - hypoglycemia protocol in place Chronic back pain - Continue home oxycodone Code Status: DNR/DNI 02/06/2020 COVID-19 pneumonia-down to high flow nasal cannula. Currently stable. Some of the inflammatory markers had actually increased. I will recheck them in the morning. Ongoing Lovenox. Continuing Decadron and completing doxycycline. Continue supplements. Acute agitated delirium-still with multiple etiologies. Hypoxia is improving. Still on steroids. Prior history of delirium episodes while hospitalized. QT interval is prolonged and will need to monitor medications closely he did rece arnulfo 1 dose of Geodon on 02/04/2020 and although he is on an SSRI he has not gotten that medication recently. I am going to discontinue the Geodon and will need to use other medication for sedation if needed. Prolonged QT-I did review the literature and in fact hypokalemia, hypomagnesemia, hypocalcemia as well as the Geodon and Lexapro can all contribute to long QT. I will increase potassium chloride with a goal of 4.0. I will check the serum magnesium level. The serum calcium level has been normal. I am decreasing the Lexapro as well as the Geodon. Olanzapine is less likely to prolong the QT. We will recheck EKG tomorrow and Sunday. Diabetes mellitus-continue sliding scale and daily Lantus. Accu-Cheks have been above 200 and so I will increase the Lantus slightly. Leukocytosis-White blood cell count is now down to 12.9. Continue to monitor. Dehydration-sodium is up slightly. Potassium is right at the lower limit normal but still normal. I am going to switch the fluid to half-normal saline with 20 mEq of potassium and recheck laboratory studies tomorrow 02/07/2020 Prolonged QT-with the medication changes yesterday the QTC dropped from 528-449. We will continue current regimen. COVID-19 pneumonia-the patient's ferritin dropped slightly but the LDH increased significantly. I am going to change his Decadron to Solu-Medrol 40 mg q. 8 temporarily and recheck inflammatory markers tomorrow. His white blood cell count also went up to 18,000. Because his lungs do not angelina nd any different from yesterday I will not repeat a chest x-ray at this time. Recheck blood work tomorrow. Diabetes-glucose was still elevated at 174. With the change in steroids I will also increase the Lantus to 18 units. Monitor Accu-Cheks and continue sliding scale adjust insulin accordingly Delirium-still poorly responsive. He does seem calmer than yesterday. He still requires wrist restraints due to a significant danger of dislodging IVs. - Time Time Spent with patient: 15-24 minutes Medications reviewed and adjusted accordingly: Yes Anticipated Discharge Disposition: Unknown Anticipated Discharge Timeframe: Unknown
[2020-02-07] MEDS: ENOXAPARIN SODIUM INJ 100 MG/1 ML DISP.SYRIN SUBCUT SCH ×2 (10:44→21:06)
[2020-02-07] MEDS: METOPROLOL SUCCINATE 50 MG TAB.SR.24H PO SCH ×2 (10:45→11:18)
[2020-02-07] MEDS: ASCORBIC ACID 500 MG TABLET PO SCH ×3 (10:45→17:43)
[2020-02-07] MEDS: ACETAMINOPHEN 325 MG TABLET PO SCH ×4 (10:45→17:43)
[2020-02-07] MEDS: ZINC SULFATE 220 MG CAPSULE PO SCH ×2 (10:45→11:20)
[2020-02-07] MEDS: DIVALPROEX SODIUM 250 MG TAB.SR.24H PO SCH ×3 (10:45→21:05)
[2020-02-07] MEDS: FAMOTIDINE 20 MG TABLET PO SCH ×2 (10:45→21:05)
[2020-02-07] MEDS: CHOLECALCIFEROL (D3) 1,000 UNIT (25 MCG) TABLET PO SCH ×2 (10:45→11:20)
[2020-02-07] MEDS: INSULIN REG, HUMAN 100 UNIT/ML 3 ML VIAL (PYX) SUBCUT SCH ×4 (10:53→21:30)
[2020-02-07] MEDS: POTASSI CL 20 MEQ/1/2NS 1L 20 MEQ/1,000 ML RTUINJ IV PRN ×2 (11:31→21:29)
[2020-02-07] MEDS: METHYLPREDNISOLONE INJ 40 MG/1 ML SDV IV SCH ×2 (14:59→21:06)
[2020-02-07] MEDS: INSULIN GLARGINE,HUM.REC.ANLOG 1,000 UNIT/10 ML VIAL SUBCUT SCH (21:30)
[2020-02-08] MEDS: METHYLPREDNISOLONE INJ 40 MG/1 ML SDV IV SCH ×3 (05:16→22:04)
[2020-02-08] MEDS: POTASSI CL 20 MEQ/1/2NS 1L 20 MEQ/1,000 ML RTUINJ IV PRN ×2 (05:59→17:44)
[2020-02-08 06:03] LABS: HEMATOCRIT 38.1 % (37.9-51.0); HEMOGLOBIN 12.9 g/dL (13.5-17.0); MEAN CORPUSCULAR HEMOGLOBIN 31.7 pg (27.0-33.4); MEAN CORPUSCULAR HGB CONC 33.8 g/dL (32.0-36.0); MEAN CORPUSCULAR VOLUME 94 fl (80-97); PLATELET COUNT 135 10^3/uL (150-450); RED BLOOD COUNT 4.08 10^6/uL (4.35-5.55); RED CELL DISTRIBUTION WIDTH 13.9 % (11.5-14.0)
[2020-02-08 06:36] LABS: BLOOD UREA NITROGEN 30 mg/dL (7-20); CALCIUM 8.2 mg/dL (8.4-10.2); GLUCOSE 197 mg/dL (75-110)
[2020-02-08 06:39] LABS: ANION GAP 5 (5-19); CARBON DIOXIDE 24 mmol/L (22-30); CHLORIDE 113 mmol/L (98-107)
[2020-02-08 06:53] LABS: C-REACTIVE PROTEIN 152.4 mg/L (<10.0)
[2020-02-08] MEDS: INSULIN REG, HUMAN 100 UNIT/ML 3 ML VIAL (PYX) SUBCUT SCH ×4 (07:51→21:54)
[2020-02-08] MEDS: FAMOTIDINE 20 MG TABLET PO SCH ×2 (09:26→21:55)
[2020-02-08] MEDS: METOPROLOL SUCCINATE 50 MG TAB.SR.24H PO SCH (09:26)
[2020-02-08] MEDS: ZINC SULFATE 220 MG CAPSULE PO SCH (09:26)
[2020-02-08] MEDS: ENOXAPARIN SODIUM INJ 100 MG/1 ML DISP.SYRIN SUBCUT SCH ×2 (09:26→21:54)
[2020-02-08] MEDS: ACETAMINOPHEN 325 MG TABLET PO SCH ×3 (09:26→17:41)
[2020-02-08] MEDS: DIVALPROEX SODIUM 250 MG TAB.SR.24H PO SCH ×2 (09:27→21:55)
[2020-02-08] MEDS: CHOLECALCIFEROL (D3) 1,000 UNIT (25 MCG) TABLET PO SCH (09:27)
[2020-02-08] MEDS: ASCORBIC ACID 500 MG TABLET PO SCH ×2 (09:27→17:41)
[2020-02-08] MEDS ORDERED: OXYCODONE HCL IR 5 MG TABLET PO PRN (15:56)
[2020-02-08] MEDS: DOXYCYCLINE HYCLATE 100 MG in DEXTROSE 5%-WATER 250 ML IV SCH (17:43)
[2020-02-08] MEDS: INSULIN GLARGINE,HUM.REC.ANLOG 1,000 UNIT/10 ML VIAL SUBCUT SCH (21:55)
--- NOTE | 2020-02-08 22:15 | PDOC PROGRESS REPORT ---
Subjective Date:: 02/08/20 Subjective:: The patient is actually awake and alert and conversant. He is extremely grumpy. He states that his breathing is fine and he wants to go home. He is still on nasal cannula and has needed intermittent BiPAP. He clearly is in no shape to go home. Reason For Visit: ACUTE RESPIRATORY FAILURE WITH HYPOXIA,COVID Physical Exam Vital Signs: Temp Pulse Resp BP Pulse Ox 98.1 F 75 20 151/75 H 96 02/08/20 17:34 02/08/20 17:34 02/08/20 19:55 02/08/20 17:34 02/08/20 19:55 Intake & Output 02/07/20 02/08/20 02/09/20 06:59 06:59 06:59 Intake Total 1150 2500 1370 Output Total 1400 Balance -250 2500 1370 Weight 84.7 kg 84.4 kg General appearance: PRESENT: cooperative, mild distress, well-developed Head exam: PRESENT: atraumatic, normocephalic Ear exam: PRESENT: normal external ear exam. ABSENT: bleeding, drainage Respiratory exam: PRESENT: clear to auscultation jason - Anteriorly, tachypnea. ABSENT: rales, rhonchi, wheezes Cardiovascular exam: PRESENT: RRR, +S1, +S2 GI/Abdominal exam: PRESENT: normal bowel sounds, soft. ABSENT: tenderness Rectal exam: PRESENT: deferred Extremities exam: ABSENT: pedal edema Musculoskeletal exam: PRESENT: normal inspection. ABSENT: deformity, dislocation Neurological exam: PRESENT: alert, awake, oriented to person, oriented to situation Psychiatric exam: PRESENT: other - Quite grumpy. ABSENT: agitated, anxious Results Laboratory Results: 02/08/20 05:25 02/08/20 05:25 02/08/20 02/08/20 05:25 05:25 WBC 10.0 RBC 4.08 L Hgb 12.9 L Hct 38.1 MCV 94 MCH 31.7 MCHC 33.8 RDW 13.9 Plt Count 135 L Sodium 142.4 Potassium 5.0 Chloride 113 H Carbon Dioxide 24 Anion Gap 5 BUN 30 H Creatinine 0.79 Est GFR ( Amer) > 60 Glucose 197 H Calcium 8.2 L C-Reactive Protein 152.4 H 02/01/20 08:17 Creatine Kinase 112 Impressions: Chest X-Ray 02/01/20 00:10 IMPRESSION: No acute disease. Assessment and Plan - Diagnosis (1) Agitation Is this a current diagnosis for this admission?: Yes (2) Dehydration Is this a current diagnosis for this admission?: Yes (3) Prolonged QT interval Is this a current diagnosis for this admission?: Yes (4) Acute delirium Is this a current diagnosis for this admission?: Yes (5) COVID-19 Is this a current diagnosis for this admission?: Yes (6) Leukocytosis Qualifiers: Leukocytosis type: unspecified Qualified Code(s): D72.829 - Elevated white blood cell count, unspecified Is this a current diagnosis for this admission?: Yes (7) Acute respiratory failure with hypoxia Is this a current diagnosis for this admission?: Yes (8) Chronic back pain Qualifiers: Back pain location: back pain in unspecified location Back pain laterality: unspecified Qualified Code(s): M54.9 - Dorsalgia, unspecified; G89.29 - Other chronic pain Is this a current diagnosis for this admission?: Yes (9) Diabetes mellitus type 2 in nonobese Is this a current diagnosis for this admission?: Yes (10) Fever Qualifiers: Encounter type: initial encounter Is this a current diagnosis for this admission?: Yes - Plan Summary Summary: COVID-19 virus infection Acute respiratory failure with hypoxemia - CXR showed no acute finding - labs: * D-dimer 1.20 --> 1.26 * Ferritin 347 --> 514 * LDH 358 --> 574 * CRP 74.8 --> 28.7 - continue therapeutic dose Lovenox - he has been weaned off CPAP and is now on high flow, will continue to wean down FiO2 as tolerated - s/p Ivermectin x2 doses - continue doxycycline (day 4/5) - continue dexamethasone (day 10) - continue Vitamin C, vitamin D, zinc supplementation - encourage pulmonary toilet - isolation precautions Dehydration: due to poor oral intake in the s/o delirium/agitation and hy perglycemia. - gentle IVF hydration therapy - encourage oral intake Leukocytosis: multifactorial, due to COVID-19, stress, steroids and possibly also hemoconcentration, as he does appear quite dry on exam. - continue treatment as per above, and recheck CBC tomorrow Acute, agitated delirium: multifactorial secondary to acute infection, hypoxia, steroid use, and age. He has a known history of delirium during prior hospitalizations, per his family. During this hospitalization, he has been repeatedly physically violent towards staff. He is at risk of hurting himself either with a fall or because of removing his oxygen mask, causing severe h ypoxemia. He has a prolonged QTc on EKG, but unfortunately our hands are tied because he requires antipsychotics to help control his behaviors. Without the use of antipsychotic therapy, he is at risk for hurting himself, falling, and having worse outcomes due to severe hypoxemia. I spoke with the family at length and they are aware of his prolonged QTc, and that this potentially puts him at risk for an arrhythmia. He is being monitored on telemetry and we are doing frequent EKGs (when he permits) to monitor the QT interval. We are limiting the use of antipsychotics as much as possible. - currently with soft limb restraints - Geodon IM PRN agitation (use sparingly given prolonged QTc) - frequent reorientation - I have asked his family to bring in pictures and any other familiar objects - unfortunately, we can not have family come visit the Covid unit, although this would be ideal to help calm him down - avoid benzodiazepines as this class of medications is known to worsen agitation in the elderly - minimize opioids and other narcotic pain medications as much as possible Prolonged QT - continuous telemetry - frequent EKGs, especially after administration of QT prolonging medications - minimize the use of QT-prolonging medications as much as possible Atrial Fibrillation with RVR: now in sinus rhythm - continue toprol XL 100 mg PO daily - he is on anticoagulation with Lovenox and should be discharged on Eliquis Diabetes mellitus type 2 complicated by Hyperglycemia: A1c 8.3%, hyperglycemia exacerbated by steroids. He has been intermittently refusing insulin. - previously treated with glipizide and diet - continue consistent carb diet - continue Lantus 12 units HS - continue SSI ACHS - hypoglycemia protocol in place Chronic back pain - Continue home oxycodone Code Status: DNR/DNI 02/06/2020 COVID-19 pneumonia-down to high flow nasal cannula. Currently stable. Some of the inflammatory markers had actually increased. I will recheck them in the morning. Ongoing Lovenox. Continuing Decadron and completing doxycycline. Co ntinue supplements. Acute agitated delirium-still with multiple etiologies. Hypoxia is improving. Still on steroids. Prior history of delirium episodes while hospitalized. QT interval is prolonged and will need to monitor medications closely he did receive 1 dose of Geodon on 02/04/2020 and although he is on an SSRI he has not gotten that medication recently. I am going to discontinue the Geodon and will need to use other medication for sedation if needed. Prolonged QT-I did review the literature and in fact hypokalemia, hypomagnesemia, hypocalcemia as well as the Geodon and Lexapro can all contribute to long QT. I will increase potassium chloride with a goal of 4.0. I will check the serum magnesium level. The serum calcium level has been normal. I am decreasing the Lexapro as well as the Geodon. Olanzapine is less likely to prolong the QT. We will recheck EKG tomorrow and Sunday. Diabetes mellitus-continue sliding scale and daily Lantus. Accu-Cheks have been above 200 and so I will increase the Lantus slightly. Leukocytosis-White blood cell count is now down to 12.9. Continue to monitor. Dehydration-sodium is up slightly. Potassium is right at the lower limit normal but still normal. I am going to switch the fluid to half-normal saline with 20 mEq of potassium and recheck laboratory studies tomorrow 02/07/2020 Prolonged QT-with the medication changes yesterday the QTC dropped from 528-449. We will continue current regimen. COVID-19 pneumonia-the patient's ferritin dropped slightly but the LDH increased significantly. I am going to change his Decadron to Solu-Medrol 40 mg q. 8 temporarily and recheck inflammatory markers tomorrow. His white blood cell count also went up to 18,000. Because his lungs do not sound any different from yesterday I will not repeat a chest x-ray at this time. Recheck blood work tomorrow. Diabetes-glucose was still elevated at 174. With the change in steroids I will also increase the Lantus to 18 units. Monitor Accu-Cheks and continue sliding scale adjust insulin accordingly Delirium-still poorly responsive. He does seem calmer than yesterday. He still requires wrist restraints due to a significant danger of dislodging IVs. 02/08/2020 Prolonged QT-improved. Continue to monitor on telemetry. COVID-19 pneumonia-the patient is on high flow nasal cannula today. He stated that he wants to go home and to take his oxygen off because his breathing is fine. Clearly this is not the case. We will continue current treatment. Leukocytosis-possibly related to steroids. Will monitor for secondary infection. Consider repeat chest x-ray if there is a clinical change such as productive cough or fever. Diabetes-continue to monitor Accu-Cheks Delirium-likely a combination of infection and prolonged isolation from h ospitalization. Consistent with my discussion with his son yesterday, as he improves he can be quite grumpy and he is actually following that pattern. His son states that this is consistent with previous hospitalizations and typically resolves over several days. Because he has tried to pull his BiPAP mask off in the past we will try and utilize mild sedating medications at first but if he becomes a danger to himself by continuously pulling off his oxygen he may need sedation and wrist restraints again. - Time Time Spent with patient: 15-24 minutes Medications reviewed and adjusted accordingly: Yes Anticipated Discharge Disposition: Home with Home Health Anticipated Discharge Timeframe: Unknown
[2020-02-09 05:50] LABS: HEMATOCRIT 35.6 % (37.9-51.0); HEMOGLOBIN 12.2 g/dL (13.5-17.0); MEAN CORPUSCULAR HEMOGLOBIN 31.7 pg (27.0-33.4); MEAN CORPUSCULAR HGB CONC 34.4 g/dL (32.0-36.0); MEAN CORPUSCULAR VOLUME 92 fl (80-97); PLATELET COUNT 152 10^3/uL (150-450); RED BLOOD COUNT 3.86 10^6/uL (4.35-5.55); RED CELL DISTRIBUTION WIDTH 13.8 % (11.5-14.0); WHITE BLOOD COUNT 15.4 10^3/uL (4.0-10.5)
[2020-02-09] MEDS: METHYLPREDNISOLONE INJ 40 MG/1 ML SDV IV SCH ×3 (05:54→22:04)
[2020-02-09] MEDS: DOXYCYCLINE HYCLATE 100 MG in DEXTROSE 5%-WATER 250 ML IV SCH ×2 (05:54→17:58)
[2020-02-09] MEDS: INSULIN REG, HUMAN 100 UNIT/ML 3 ML VIAL (PYX) SUBCUT SCH ×4 (09:58→22:03)
[2020-02-09] MEDS: CHOLECALCIFEROL (D3) 1,000 UNIT (25 MCG) TABLET PO SCH (09:59)
[2020-02-09] MEDS: ASCORBIC ACID 500 MG TABLET PO SCH ×2 (09:59→17:55)
[2020-02-09] MEDS: METOPROLOL SUCCINATE 50 MG TAB.SR.24H PO SCH (09:59)
[2020-02-09] MEDS: FAMOTIDINE 20 MG TABLET PO SCH ×2 (09:59→22:04)
[2020-02-09] MEDS: ACETAMINOPHEN 325 MG TABLET PO SCH ×3 (09:59→17:55)
[2020-02-09] MEDS: ENOXAPARIN SODIUM INJ 100 MG/1 ML DISP.SYRIN SUBCUT SCH ×2 (10:00→22:05)
[2020-02-09] MEDS: DIVALPROEX SODIUM 250 MG TAB.SR.24H PO SCH ×2 (10:00→22:04)
[2020-02-09] MEDS: ZINC SULFATE 220 MG CAPSULE PO SCH (10:00)
[2020-02-09] MEDS: POTASSI CL 20 MEQ/1/2NS 1L 20 MEQ/1,000 ML RTUINJ IV PRN (10:02)
--- NOTE | 2020-02-09 11:14 | PDOC PROGRESS REPORT ---
Subjective Date:: 02/09/20 Subjective:: Patient is resting comfortably on BiPAP. He is not agitated this morning. Reason For Visit: ACUTE RESPIRATORY FAILURE WITH HYPOXIA,COVID Physical Exam Vital Signs: Temp Pulse Resp BP Pulse Ox 97.4 F 65 21 H 178/81 H 99 02/09/20 10:00 02/09/20 07:00 02/09/20 05:48 02/09/20 05:48 02/09/20 05:48 Intake & Output 02/08/20 02/09/20 02/10/20 06:59 06:59 06:59 Intake Total 2500 2370 250 Balance 2500 2370 250 Weight 84.4 kg 91.2 kg General appearance: PRESENT: no acute distress, cooperative, well-developed Head exam: PRESENT: atraumatic, normocephalic Respiratory exam: PRESENT: clear to auscultation jason, symmetrical, tachypnea - Mild, unlabored. ABSENT: rales, rhonchi, wheezes Cardiovascular exam: PRESENT: RRR, +S1, +S2. ABSENT: bradycardia, diastolic murmur, irregular rhythm, systolic murmur, tachycardia GI/Abdominal exam: PRESENT: normal bowel sounds, soft. ABSENT: distended, tenderness Rectal exam: PRESENT: deferred Gentrourinary exam: PRESENT: indwelling catheter Musculoskeletal exam: PRESENT: normal inspection. ABSENT: deformity, dislocation Neurological exam: PRESENT: alert - Still sleepy, awake. ABSENT: altered Psychiatric exam: ABSENT: agitated, anxious Results Laboratory Results: 02/09/20 04:57 02/08/20 05:25 02/09/20 04:57 WBC 15.4 H RBC 3.86 L Hgb 12.2 L Hct 35.6 L MCV 92 MCH 31.7 MCHC 34.4 RDW 13.8 Plt Count 152 02/01/20 08:17 Creatine Kinase 112 Impressions: Chest X-Ray 02/01/20 00:10 IMPRESSION: No acute disease. Assessment and Plan - Diagnosis (1) Agitation Is this a current diagnosis for this admission?: Yes (2) Dehydration Is this a current diagnosis for this admission?: Yes (3) Prolonged QT interval Is this a current diagnosis for this admission?: Yes (4) Acute delirium Is this a current diagnosis for this admission?: Yes (5) COVID-19 Is this a current diagnosis for this admission?: Yes (6) Leukocytosis Qualifiers: Leukocytosis type: unspecified Qualified Code(s): D72.829 - Elevated white blood cell count, unspecified Is this a current diagnosis for this admission?: Yes (7) Acute respiratory failure with hypoxia Is this a current diagnosis for this admission?: Yes (8) Chronic back pain Qualifiers: Back pain location: back pain in unspecified location Back pain laterality: unspecified Qualified Code(s): M54.9 - Dorsalgia, unspecified; G89.29 - Other chronic pain Is this a current diagnosis for this admission?: Yes (9) Diabetes mellitus type 2 in nonobese Is this a current diagnosis for this admission?: Yes (10) Fever Qualifiers: Encounter type: initial encounter Is this a current diagnosis for this admission?: Yes - Plan Summary Summary: COVID-19 virus infection Acute respiratory failure with hypoxemia - CXR showed no acute finding - labs: * D-dimer 1.20 --> 1.26 * Ferritin 347 --> 514 * LDH 358 --> 574 * CRP 74.8 --> 28.7 - continue therapeutic dose Lovenox - he has been weaned off CPAP and is now on high flow, will continue to wean down FiO2 as tolerated - s/p Ivermectin x2 doses - continue doxycycline (day 4/5) - continue dexamethasone (day /) - continue Vitamin C, vitamin D, zinc supplementation - encourage pulmonary toilet - isolation precautions Dehydration: due to poor oral intake in the s/o delirium/agitation and hyperglycemia. - gentle IVF hydration therapy - encourage oral intake Leukocytosis: multifactorial, due to COVID-19, stress, steroids and possibly also hemoconcentration, as he does appear quite dry on exam. - continue treatment as per above, and recheck CBC tomorrow Acute, agitated delirium: multifactorial secondary to acute infection, hypoxia, steroid use, and age. He has a known history of delirium during prior hospitalizations, per his family. During this hospitalization, he has been rep eatedly physically violent towards staff. He is at risk of hurting himself either with a fall or because of removing his oxygen mask, causing severe hypoxemia. He has a prolonged QTc on EKG, but unfortunately our hands are tied because he requires antipsychotics to help control his behaviors. Without the use of antipsychotic therapy, he is at risk for hurting himself, falling, and having worse outcomes due to severe hypoxemia. I spoke with the family at length and they are aware of his prolonged QTc, and that this potentially puts him at risk for an arrhythmia. He is being monitored on telemetry and we are doing frequent EKGs (when he permits) to monitor the QT interval. We are limiting the use of antipsychotics as much as possible. - currently with soft limb restraints - Geodon IM PRN agitation (use sparingly given prolonged QTc) - frequent reorientation - I have asked his family to bring in pictures and any other familiar objects - unfortunately, we can not have family come visit the Covid unit, although this would be ideal to help calm him down - avoid benzodiazepines as this class of medications is known to worsen agitation in the elderly - minimize opioids and other narcotic pain medications as much as possible Prolonged QT - continuous telemetry - frequent EKGs, especially after administration of QT prolonging medications - minimize the use of QT-prolonging medications as much as possible Atrial Fibrillation with RVR: now in sinus rhythm - continue toprol XL 100 mg PO daily - he is on anticoagulation with Lovenox and should be discharged on Eliquis Diabetes mellitus type 2 complicated by Hyperglycemia: A1c 8.3%, hyperglycemia exacerbated by steroids. He has been intermittently refusing insulin. - previously treated with glipizide and diet - continue consistent carb diet - continue Lantus 12 units HS - continue SSI ACHS - hypoglycemia protocol in place Chronic back pain - Continue home oxycodone Code Status: DNR/DNI 02/06/2020 COVID-19 pneumonia-down to high flow nasal cannula. Currently stable. Some of the inflammatory markers had actually increased. I will recheck them in the morning. Ongoing Lovenox. Continuing Decadron and completing doxycycline. Continue supplements. Acute agitated delirium-still with multiple etiologies. Hypoxia is improving. Still on steroids. Prior history of delirium episodes while hospitalized. QT interval is prolonged and will need to monitor medications closely he did receive 1 dose of Geodon on 02/04/2020 and although he is on an SSRI he has not gotten that medication recently. I am going to discontinue the Geodon and will need to use other medication for sedation if needed. Prolonged QT-I did review the literature and in fact hypokalemia, hypomagnesemia, hypocalcemia as well as the Geodon and Lexapro can all contribute to long QT. I will increase potassium chloride with a goal of 4.0. I will check the serum magnesium level. The serum calcium level has been normal. I am decreasing the Lexapro as well as the Geodon. Olanzapine is less likely to prolong the QT. We will recheck EKG tomorrow and Sunday. Diabetes mellitus-continue sliding scale and daily Lantus. Accu-Cheks have been above 200 and so I will increase the Lantus slightly. Leukocytosis-White blood cell count is now down to 12.9. Continue to monitor. Dehydration-sodium is up slightly. Potassium is right at the lower limit normal but still normal. I am going to switch the fluid to half-normal saline with 20 mEq of potassium and recheck laboratory studies tomorrow 02/07/2020 Prolonged QT-with the medication changes yesterday the QTC dropped from 528-449. We will continue current regimen. COVID-19 pneumonia-the patient's ferritin dropped slightly but the LDH increased significantly. I am going to change his Decadron to Solu-Medrol 40 mg q. 8 temporarily and recheck inflammatory markers tomorrow. His white blood cell count also went up to 18,000. Because his lungs do not sound any different from yesterday I will not repeat a chest x-ray at this time. Recheck blood work tomorrow. Diabetes-glucose was still elevated at 174. With the change in steroids I will also increase the Lantus to 18 units. Monitor Accu-Cheks and continue sliding scale adjust insulin accordingly Delirium-still poorly responsive. He does seem calmer than yesterday. He still requires wrist restraints due to a significant danger of dislodging IVs. 02/08/2020 Prolonged QT-improved. Continue to monitor on telemetry. COVID-19 pneumonia-the patient is on high flow nasal cannula today. He stated that he wants to go home and to take his oxygen off because his breathing is fine. Clearly this is not the case. We will continue current treatment. Leukocytosis-possibly related to steroids. Will monitor for secondary infection. Consider repeat chest x-ray if there is a clinical change such as productive cough or fever. Diabetes-continue to monitor Accu-Cheks Delirium-likely a combination of infection and prolonged isolation from hospitalization. Consistent with my discussion with his son yesterday, as he improves he can be quite grumpy and he is actually following that pattern. His son states that this is consistent with previous hospitalizations and typically resolves over several days. Because he has tried to pull his BiPAP mask off in the past we will try and utilize mild sedating medications at first but if he becomes a danger to himself by continuously pulling off his oxygen he may need sedation and wrist restraints again. 02/09/2020 Prolonged QT-may recheck EKG in several days. Made sweeping changes to avoid QT prolonging agents as much as possible. COVID-19 pneumonia-patient is back on BiPAP. He did tolerate high flow nasal cannula. It seems at night or if he gets agitated he benefits from BiPAP. Will continue current treatment plan. Leukocytosis-patient's white blood cell count was 18,000 then 10,000 and is 15,000. I do not think it is a secondary infection. We will continue to monitor. Diabetes-still with variable Accu-Cheks but most are below 200. Continue current regimen. Delirium-he was agitated last evening. He seemed to respond to the intramuscular Zyprexa. We will try and use it sparingly. He was very comfortable this morning. - Time Time Spent with patient: 15-24 minutes Anticipated Discharge Disposition: Unknown Anticipated Discharge Timeframe: Unknown
--- NOTE | 2020-02-09 13:00 | RADIOLOGY REPORT (SQ) ---
EXAM DESCRIPTION: CHEST SINGLE VIEW IMAGES COMPLETED DATE/TIME: 02/09/2020 12:52 pm REASON FOR STUDY: pneumonia COMPARISON: 02/01/2020 EXAM PARAMETERS: NUMBER OF VIEWS: One view. TECHNIQUE: Single frontal radiographic view of the chest acquired. RADIATION DOSE: NA LIMITATIONS: None. FINDINGS: LUNGS AND PLEURA: Ill-defined bibasilar opacities. No pleural effusion or pneumothorax. MEDIASTINUM AND HILAR STRUCTURES: No masses. Contour normal. HEART AND VASCULAR STRUCTURES: Heart normal in size. Normal vasculature. BONES: No acute findings. HARDWARE: Extensive posterior thoracolumbar fusion hardware. OTHER: No other significant finding. IMPRESSION: Ill-defined bibasilar opacities suggestive of multifocal pneumonia, increased from prior . TECHNICAL DOCUMENTATION: JOB ID: [id number] 2010 [employer]- All Rights Reserved Reading location - IP/workstation name: [email or web address]
[2020-02-09] MEDS: AMLODIPINE BESYLATE 10 MG TABLET PO SCH (17:55)
[2020-02-09] MEDS: INSULIN GLARGINE,HUM.REC.ANLOG 1,000 UNIT/10 ML VIAL SUBCUT SCH (22:04)
[2020-02-10 05:22] LABS: HEMATOCRIT 35.3 % (37.9-51.0); HEMOGLOBIN 12.4 g/dL (13.5-17.0); MEAN CORPUSCULAR HEMOGLOBIN 32.4 pg (27.0-33.4); MEAN CORPUSCULAR VOLUME 92 fl (80-97); RED BLOOD COUNT 3.82 10^6/uL (4.35-5.55); RED CELL DISTRIBUTION WIDTH 13.8 % (11.5-14.0); WHITE BLOOD COUNT 21.2 10^3/uL (4.0-10.5)
[2020-02-10] MEDS ORDERED: DOXYCYCLINE HYCLATE INJ 100 MG VIAL ONE (05:45)
[2020-02-10 05:53] LABS: ABSOLUTE LYMPHOCYTES# (MANUAL) 0.2 10^3/uL (0.5-4.7); ABSOLUTE MONOCYTES # (MANUAL) 0.6 10^3/uL (0.1-1.4); BASOPHILS % (MANUAL) 0 % (0-2); EOSINOPHILS % (MANUAL) 0 % (0-6); LYMPHOCYTES % (MANUAL) 1 % (13-45); MONOCYTES % (MANUAL) 3 % (3-13); SEGMENTED NEUTROPHILS % (MAN) 96 % (42-78); TOTAL CELLS COUNTED 100
[2020-02-10 05:54] LABS: ALBUMIN 2.6 g/dL (3.5-5.0); ALKALINE PHOSPHATASE 67 U/L (38-126); ANION GAP 8 (5-19); ASPARTATE AMINO TRANSFERASE 40 U/L (17-59); BILIRUBIN,DIRECT 0.3 mg/dL (0.0-0.4); BILIRUBIN,TOTAL 0.6 mg/dL (0.2-1.3); BLOOD UREA NITROGEN 28 mg/dL (7-20); C-REACTIVE PROTEIN 31.1 mg/L (<10.0); CALCIUM 8.3 mg/dL (8.4-10.2); CARBON DIOXIDE 21 mmol/L (22-30); CHLORIDE 108 mmol/L (98-107); GLUCOSE 174 mg/dL (75-110); PLATELET CLUMPS PRESENT; PLATELET COMMENT ADEQUATE; POIKILOCYTOSIS SLIGHT; POLYCHROMASIA SLIGHT; POTASSIUM 4.7 mmol/L (3.6-5.0); TEAR DROP CELLS SLIGHT; TOTAL PROTEIN 5.6 g/dL (6.3-8.2)
[2020-02-10 05:55] LABS: PLATELET COUNT 196 10^3/uL (150-450)
[2020-02-10] MEDS: METHYLPREDNISOLONE INJ 40 MG/1 ML SDV IV SCH ×3 (06:07→22:03)
[2020-02-10] MEDS: DOXYCYCLINE HYCLATE 100 MG in DEXTROSE 5%-WATER 250 ML IV SCH ×2 (06:07→18:06)
[2020-02-10] MEDS: METOPROLOL SUCCINATE 50 MG TAB.SR.24H PO SCH (09:08)
[2020-02-10] MEDS: ENOXAPARIN SODIUM INJ 100 MG/1 ML DISP.SYRIN SUBCUT SCH ×2 (09:08→22:02)
[2020-02-10] MEDS: AMLODIPINE BESYLATE 10 MG TABLET PO SCH (09:09)
[2020-02-10] MEDS: CHOLECALCIFEROL (D3) 1,000 UNIT (25 MCG) TABLET PO SCH (09:09)
[2020-02-10] MEDS: ACETAMINOPHEN 325 MG TABLET PO SCH ×3 (09:09→18:00)
[2020-02-10] MEDS: FAMOTIDINE 20 MG TABLET PO SCH ×2 (09:09→22:03)
[2020-02-10] MEDS: ZINC SULFATE 220 MG CAPSULE PO SCH (09:12)
[2020-02-10] MEDS: ASCORBIC ACID 500 MG TABLET PO SCH ×2 (09:12→18:00)
[2020-02-10] MEDS: INSULIN REG, HUMAN 100 UNIT/ML 3 ML VIAL (PYX) SUBCUT SCH ×4 (09:15→22:03)
[2020-02-10] MEDS: DIVALPROEX SODIUM 250 MG TAB.SR.24H PO SCH ×2 (09:16→22:03)
--- NOTE | 2020-02-10 15:00 | PDOC PROGRESS REPORT ---
Subjective Date:: 02/10/20 Subjective:: He is drowsy this morning. Responds to questions but seems confused. Reason For Visit: ACUTE RESPIRATORY FAILURE WITH HYPOXIA,COVID Physical Exam Vital Signs: Temp Pulse Resp BP Pulse Ox 97.7 F 82 24 H 156/77 H 92 02/10/20 11:37 02/10/20 11:37 02/10/20 11:37 02/10/20 11:37 02/10/20 11:37 Intake & Output 02/09/20 02/10/20 02/11/20 06:59 06:59 06:59 Intake Total 2370 1880 250 Balance 2370 1880 250 Weight 91.2 kg 85.1 kg General appearance: PRESENT: no acute distress, cooperative Neck exam: ABSENT: JVD Respiratory exam: PRESENT: rhonchi - Mild, symmetrical, unlabored. ABSENT: tachypnea, wheezes Cardiovascular exam: PRESENT: RRR, +S1, +S2. ABSENT: tachycardia GI/Abdominal exam: PRESENT: soft. ABSENT: rebound, rigid, tenderness Neurological exam: PRESENT: alert, altered, awake, oriented to person, oriented to place Psychiatric exam: ABSENT: agitated, anxious Results Laboratory Results: 02/10/20 04:26 02/10/20 04:26 02/10/20 02/10/20 04:26 04:26 WBC 21.2 H RBC 3.82 L Hgb 12.4 L Hct 35.3 L MCV 92 MCH 32.4 MCHC 35.0 RDW 13.8 Plt Count 196 Seg Neutrophils % Not Reportable Sodium 136.9 L Potassium 4.7 Chloride 108 H Carbon Dioxide 21 L Anion Gap 8 BUN 28 H Creatinine 0.73 Est GFR ( Amer) > 60 Glucose 174 H Calcium 8.3 L Ferritin 360.00 Total Bilirubin 0.6 AST 40 Alkaline Phosphatase 67 C-Reactive Protein 31.1 H Total Protein 5.6 L Albumin 2.6 L 02/01/20 08:17 Creatine Kinase 112 Impressions: Chest X-Ray 02/09/20 00:00 IMPRESSION: Ill-defined bibasilar opacities suggestive of multifocal pneumonia, increased from prior. Assessment and Plan - Diagnosis (1) Acute respiratory failure with hypoxia Is this a current diagnosis for this admission?: Yes Plan: Secondary to COVID-19 infection. At this point, patient is dealing with lung damage from COVID 19 [place]. Still requiring HFNC and alternation with CPAP at about 80% FiO2. (2) Pneumonia due to COVID-19 virus Is this a current diagnosis for this admission?: Yes Plan: COVID positive on rapid Covid test done by EMS. Continue doxycycline Received ivermectin x2 doses Continue Iv Solu-medrol Vitamin C, vitamin D, zinc supplementation Encourage pulmonary toilet. Isolation precautions. (3) Acute delirium Is this a current diagnosis for this admission?: Yes Plan: Secondary to current illness. Currently not agitated but still frankly with some mild to moderate confusion. He did seem oriented to self and place. Drowsy this morning. Has as needed Zyprexa. Reorientation techniques. (4) Dehydration Is this a current diagnosis for this admission?: Yes (5) Leukocytosis Qualifiers: Leukocytosis type: unspecified Qualified Code(s): D72.829 - Elevated white blood cell count, unspecified Is this a current diagnosis for this admission?: Yes (6) Prolonged QT interval Is this a current diagnosis for this admission?: Yes Plan: Showed resolution on last EKG. (7) Diabetes mellitus type 2 in nonobese Is this a current diagnosis for this admission?: Yes - Time Time Spent with patient: 15-24 minutes Anticipated Discharge Disposition: Home, Self Care Anticipated Discharge Timeframe: unknown
[2020-02-10] MEDS: INSULIN GLARGINE,HUM.REC.ANLOG 1,000 UNIT/10 ML VIAL SUBCUT SCH (22:02)
[2020-02-11 05:06] LABS: HEMATOCRIT 31.5 % (37.9-51.0); HEMOGLOBIN 10.8 g/dL (13.5-17.0); MEAN CORPUSCULAR HEMOGLOBIN 31.8 pg (27.0-33.4); MEAN CORPUSCULAR HGB CONC 34.2 g/dL (32.0-36.0); MEAN CORPUSCULAR VOLUME 93 fl (80-97); PLATELET COUNT 222 10^3/uL (150-450); RED BLOOD COUNT 3.38 10^6/uL (4.35-5.55); RED CELL DISTRIBUTION WIDTH 13.9 % (11.5-14.0); WHITE BLOOD COUNT 24.9 10^3/uL (4.0-10.5)
[2020-02-11] MEDS: METHYLPREDNISOLONE INJ 40 MG/1 ML SDV IV SCH ×3 (05:28→22:45)
[2020-02-11] MEDS: DOXYCYCLINE HYCLATE 100 MG in DEXTROSE 5%-WATER 250 ML IV SCH ×2 (05:28→18:07)
[2020-02-11] MEDS ORDERED: ACETAMINOPHEN 325 MG TABLET PO PRN (07:50)
[2020-02-11] MEDS: INSULIN REG, HUMAN 100 UNIT/ML 3 ML VIAL (PYX) SUBCUT SCH ×4 (08:49→22:43)
[2020-02-11] MEDS: AMLODIPINE BESYLATE 10 MG TABLET PO SCH (09:14)
[2020-02-11] MEDS: ASCORBIC ACID 500 MG TABLET PO SCH ×2 (09:14→18:07)
[2020-02-11] MEDS: ENOXAPARIN SODIUM INJ 100 MG/1 ML DISP.SYRIN SUBCUT SCH ×2 (09:14→22:44)
[2020-02-11] MEDS: DIVALPROEX SODIUM 250 MG TAB.SR.24H PO SCH ×2 (09:14→22:43)
[2020-02-11] MEDS: CHOLECALCIFEROL (D3) 1,000 UNIT (25 MCG) TABLET PO SCH (09:14)
[2020-02-11] MEDS: ZINC SULFATE 220 MG CAPSULE PO SCH (09:14)
[2020-02-11] MEDS: FAMOTIDINE 20 MG TABLET PO SCH ×2 (09:15→22:43)
[2020-02-11] MEDS: METOPROLOL SUCCINATE 50 MG TAB.SR.24H PO SCH (09:15)
[2020-02-11 12:59] LABS: APPEARANCE,URINE CLEAR; BILIRUBIN,URINE NEGATIVE (NEGATIVE); COLOR,URINE YELLOW; GLUCOSE, URINE NEGATIVE (NEGATIVE); KETONES,URINE NEGATIVE (NEGATIVE); LEUKOCYTE ESTERASE,URINE NEGATIVE (NEGATIVE); NITRITE,URINE NEGATIVE (NEGATIVE); PROTEIN,URINE NEGATIVE (NEGATIVE); URINE SPECIFIC GRAVITY 1.015; UROBILINOGEN,URINE NEGATIVE mg/dL (<2.0)
[2020-02-11] MEDS ORDERED: NORMAL SALINE 1000 ML 1,000 ML IV PRN (15:03)
--- NOTE | 2020-02-11 15:23 | PDOC PROGRESS REPORT ---
Subjective Date:: 02/11/20 Subjective:: Still confused. On cpap this morning but w/o complaints. Resting peacefully. Reason For Visit: ACUTE RESPIRATORY FAILURE WITH HYPOXIA,COVID Physical Exam Vital Signs: Temp Pulse Resp BP Pulse Ox 99.0 F 86 24 H 119/70 94 02/11/20 10:00 02/11/20 14:00 02/11/20 12:42 02/11/20 07:59 02/11/20 12:42 Intake & Output 02/10/20 02/11/20 02/12/20 06:59 06:59 06:59 Intake Total 1880 737 Output Total 150 125 Balance 1880 587 -125 Weight 85.1 kg 85.3 kg General appearance: PRESENT: no acute distress Head exam: PRESENT: normocephalic Eye exam: PRESENT: PERRLA Neck exam: ABSENT: JVD Respiratory exam: PRESENT: symmetrical, unlabored. ABSENT: tachypnea, wheezes Cardiovascular exam: PRESENT: RRR, +S1, +S2. ABSENT: tachycardia GI/Abdominal exam: PRESENT: soft. ABSENT: rebound, rigid, tenderness Neurological exam: PRESENT: alert, awake, oriented to person, other - sleeps most of the time and still confused. ABSENT: oriented to place, oriented to time Psychiatric exam: ABSENT: agitated, anxious Results Laboratory Results: 02/11/20 04:20 02/10/20 04:26 02/11/20 02/11/20 04:20 11:32 WBC 24.9 H RBC 3.38 L Hgb 10.8 L Hct 31.5 L MCV 93 MCH 31.8 MCHC 34.2 RDW 13.9 Plt Count 222 Urine Color YELLOW Urine Appearance CLEAR Urine pH 5.0 Ur Specific [place] 1.015 Urine Protein NEGATIVE Urine Glucose (UA) NEGATIVE Urine Ketones NEGATIVE Urine Blood NEGATIVE Urine Nitrite NEGATIVE Ur Leukocyte Esterase NEGATIVE Urine WBC (Auto) 4 Urine RBC (Auto) 23 02/01/20 08:17 Creatine Kinase 112 Impressions: Chest X-Ray 02/09/20 00:00 IMPRESSION: Ill-defined bibasilar opacities suggestive of multifocal pneumonia, increased from prior. Assessment and Plan - Diagnosis (1) Acute respiratory failure with hypoxia Is this a current diagnosis for this admission?: Yes Plan: Secondary to COVID-19 infection. At this point, patient is dealing with lung damage from COVID 19 [place]. Were able to switch patient to a high flow nasal cannula from a CPAP today. He is on FiO2 of 90%. Currently no improvement in oxygenation. We will continue to monitor patient closely. He has episodes where he does try to pull off his oxygen device. He remains a DNR/DNI. (2) Pneumonia due to COVID-19 virus Is this a current diagnosis for this admission?: Yes Plan: COVID positive on rapid Covid test done by EMS. Continue doxycycline Received ivermectin x2 doses Continue Iv Solu-medrol -- wean Vitamin C, vitamin D, zinc supplementation Encourage pulmonary toilet. Isolation precautions. (3) Acute delirium Is this a current diagnosis for this admission?: Yes Plan: Secondary to current illness. He is no longer agitated just has episodes where he tries to pull off his oxygen device. I will discontinue Zyprexa. I did discuss with his and daughter will have mentioned some cognitive decline since his hospitalization December last year but nowhere close to this. They had planned to see a neurologist and not able to do so before the pandemic. As such never dx with dementia but likely has some degree of cognitive impairment at baseline. C/w re-orientation techniques, OOB, lights on, windows open. (4) Dehydration Is this a current diagnosis for this admission?: Yes Plan: mild IV fluids. Taking his ensure. Has very poor appetite (5) Leukocytosis Qualifiers: Leukocytosis type: unspecified Qualified Code(s): D72.829 - Elevated white blood cell count, unspecified Is this a current diagnosis for this admission?: Yes (6) Prolonged QT interval Is this a current diagnosis for this admission?: Yes Plan: Showed resolution on last EKG. (7) Diabetes mellitus type 2 in nonobese Is this a current diagnosis for this admission?: Yes - Time Time Spent with patient: 15-24 minutes Anticipated Discharge Disposition: Home, Self Care Anticipated Discharge Timeframe: 2 weeks
[2020-02-11] MEDS: INSULIN GLARGINE,HUM.REC.ANLOG 1,000 UNIT/10 ML VIAL SUBCUT SCH (22:44)
[2020-02-12] MEDS: DOXYCYCLINE HYCLATE 100 MG in DEXTROSE 5%-WATER 250 ML IV SCH (05:16)
[2020-02-12] MEDS: INSULIN REG, HUMAN 100 UNIT/ML 3 ML VIAL (PYX) SUBCUT SCH ×4 (07:50→22:54)
[2020-02-12] MEDS: ENOXAPARIN SODIUM INJ 100 MG/1 ML DISP.SYRIN SUBCUT SCH (10:09)
[2020-02-12] MEDS: METHYLPREDNISOLONE INJ 40 MG/1 ML SDV IV SCH ×2 (10:10→21:59)
[2020-02-12] MEDS: METOPROLOL SUCCINATE 50 MG TAB.SR.24H PO SCH (10:10)
[2020-02-12] MEDS: DIVALPROEX SODIUM 250 MG TAB.SR.24H PO SCH (10:10)
[2020-02-12] MEDS: CHOLECALCIFEROL (D3) 1,000 UNIT (25 MCG) TABLET PO SCH (10:10)
[2020-02-12] MEDS: AMLODIPINE BESYLATE 10 MG TABLET PO SCH (10:11)
[2020-02-12] MEDS: ASCORBIC ACID 500 MG TABLET PO SCH ×2 (10:12→17:07)
[2020-02-12] MEDS: FAMOTIDINE 20 MG TABLET PO SCH (10:12)
[2020-02-12] MEDS: ZINC SULFATE 220 MG CAPSULE PO SCH (10:12)
[2020-02-12] MEDS ORDERED: NORMAL SALINE 1000 ML 1,000 ML IV ONE ×2 (12:30→13:23)
[2020-02-12 12:38] LABS: ARTERIAL BLOOD BASE EXCESS -9.8 mmol/L; ARTERIAL BLOOD H2CO3 0.72 mmol/L (1.05-1.35); ARTERIAL BLOOD HCO3 13.9 mmol/L (20-24); ARTERIAL BLOOD O2 SATURATION 92.3 % (94-98); ARTERIAL BLOOD PCO2 23.9 mmHg (35-45); ARTERIAL BLOOD PH 7.38 (7.35-7.45); ARTERIAL BLOOD PO2 62.8 mmHg (80-100); ARTERIAL BLOOD TOTAL CO2 14.7 mmol/L (23-27)
[2020-02-12 12:43] LABS: ARTERIAL BLOOD FIO2 70%
[2020-02-12 14:54] LABS: ALBUMIN 1.9 g/dL (3.5-5.0); ALKALINE PHOSPHATASE 42 U/L (38-126); ANION GAP 10 (5-19); ASPARTATE AMINO TRANSFERASE 95 U/L (17-59); BILIRUBIN,DIRECT 0.2 mg/dL (0.0-0.4); BILIRUBIN,TOTAL 0.4 mg/dL (0.2-1.3); BLOOD UREA NITROGEN 80 mg/dL (7-20); CARBON DIOXIDE 15 mmol/L (22-30); CHLORIDE 114 mmol/L (98-107); GLUCOSE 146 mg/dL (75-110); TOTAL PROTEIN 4.2 g/dL (6.3-8.2)
[2020-02-12] MEDS ORDERED: ASPIRIN 81 MG TABLET, CHEWABLE PO ONE (15:29)
[2020-02-12] MEDS ORDERED: NORMAL SALINE 1000 ML 1,000 ML IV PRN (15:31)
--- NOTE | 2020-02-12 15:39 | EKG REPORT ---
SEVERITY:- ABNORMAL ECG - SINUS RHYTHM LVH WITH SECONDARY REPOLARIZATION ABNORMALITY BORDERLINE PROLONGED QT INTERVAL : Confirmed by: Darron Main MD 12-Feb-2020 15:38:58
[2020-02-12] MEDS ORDERED: ASPIRIN 300 MG SUPP, RECTAL PR ONE (16:00)
[2020-02-12] MEDS ORDERED: ASPIRIN 300 MG SUPP, RECTAL PR PRN (16:00)
--- NOTE | 2020-02-12 16:14 | RADIOLOGY REPORT (SQ) ---
EXAM DESCRIPTION: CHEST SINGLE VIEW IMAGES COMPLETED DATE/TIME: 02/12/2020 4:05 pm REASON FOR STUDY: worsening hypoxia, sepsis COMPARISON: 02/09/2020 NUMBER OF VIEWS: One view. TECHNIQUE: Single frontal radiographic image of the chest acquired. LIMITATIONS: None. FINDINGS: LUNGS AND PLEURA: Diffuse bilateral airspace disease with more confluent density in the le ft lower lobe not significantly changed. MEDIASTINUM AND HEART: Stable heart size and mediastinal structures. BONY STRUCTURES: No acute findings. HARDWARE: None. OTHER: No other significant finding. IMPRESSION: Bilateral pneumonia not significantly changed. TECHNICAL DOCUMENTATION: JOB ID: [id number] Reading location - IP/workstation name: [email or web address]
[2020-02-12 16:17] LABS: HEMATOCRIT 23.8 % (37.9-51.0); MEAN CORPUSCULAR HEMOGLOBIN 31.6 pg (27.0-33.4); MEAN CORPUSCULAR HGB CONC 32.9 g/dL (32.0-36.0); MEAN CORPUSCULAR VOLUME 96 fl (80-97); PLATELET COUNT 182 10^3/uL (150-450); RED BLOOD COUNT 2.48 10^6/uL (4.35-5.55); RED CELL DISTRIBUTION WIDTH 14.1 % (11.5-14.0); WHITE BLOOD COUNT 28.8 10^3/uL (4.0-10.5)
[2020-02-12 16:49] LABS: HEMOGLOBIN 7.8 g/dL (13.5-17.0)
[2020-02-12 16:50] LABS: ABSOLUTE LYMPHOCYTES# (MANUAL) 0.3 10^3/uL (0.5-4.7); ABSOLUTE MONOCYTES # (MANUAL) 0.3 10^3/uL (0.1-1.4); ANISOCYTOSIS SLIGHT; BAND NEUTROPHILS % (MANUAL) 1 % (3-5); BASOPHILS % (MANUAL) 0 % (0-2); EOSINOPHILS % (MANUAL) 0 % (0-6); LYMPHOCYTES % (MANUAL) 1 % (13-45); METAMYELOCYTES % (MANUAL) 1 % (0-1); MONOCYTES % (MANUAL) 1 % (3-13); PLATELET COMMENT ADEQUATE; SEGMENTED NEUTROPHILS % (MAN) 96 % (42-78); TOTAL CELLS COUNTED 100
[2020-02-12] MEDS: NORMAL SALINE 1000 ML 1,000 ML IV PRN ×2 (17:15→22:54)
--- NOTE | 2020-02-12 18:11 | PDOC PROGRESS REPORT ---
Subjective Date:: 02/12/20 Subjective:: Patient is not doing well today. BP dropped this morning, Lactate elevated. Very lethargic. Reason For Visit: ACUTE RESPIRATORY FAILURE WITH HYPOXIA,COVID Physical Exam Vital Signs: Temp Pulse Resp BP Pulse Ox 97.9 F 79 100 H 110/54 L 97 02/12/20 16:01 02/12/20 16:01 02/12/20 17:32 02/12/20 16:01 02/12/20 17:32 Intake & Output 02/11/20 02/12/20 02/13/20 06:59 06:59 06:59 Intake Total 365 679 5985 Output Total 150 400 Balance 858 894 3875 Weight 85.3 kg 79.1 kg General appearance: PRESENT: no acute distress Neck exam: ABSENT: JVD Respiratory exam: PRESENT: crackles, symmetrical, tachypnea, unlabored. ABSENT: accessory muscle use, wheezes Cardiovascular exam: PRESENT: RRR, +S1, +S2. ABSENT: tachycardia GI/Abdominal exam: PRESENT: guarding - on palpation RLQ, soft, tenderness - LLQ. ABSENT: distended, firm, rebound, rigid Neurological exam: PRESENT: altered - very lethargic. declined. responds pain then drifts back to sleep. Moving both arms. Localizes pain swiftly., oriented to person, oriented to place. ABSENT: oriented to time, oriented to situation Results Laboratory Results: 02/12/20 15:40 02/12/20 14:22 02/12/20 02/12/20 02/12/20 12:20 14:22 14:22 WBC Cancelled RBC Cancelled Hgb Cancelled Hct Cancelled MCV Cancelled MCH Cancelled MCHC Cancelled RDW Cancelled Plt Count Cancelled Seg Neutrophils % Cancelled Carbonic Acid 0.72 L HCO3/H2CO3 Ratio 19:1 ABG pH 7.38 ABG pCO2 23.9 L ABG pO2 62.8 L ABG HCO3 13.9 L ABG O2 Saturation 92.3 L ABG Base Excess -9.8 FiO2 70% Sodium 139.1 Potassium 5.0 Chloride 114 H Carbon Dioxide 15 L Anion Gap 10 BUN 80 H Creatinine 1.74 H Est GFR ( Amer) 46 L Glucose 146 H Lactic Acid Calcium 7.0 L* Total Bilirubin 0.4 AST 95 H Alkaline Phosphatase 42 Total Protein 4.2 L Albumin 1.9 L 02/12/20 02/12/20 14:22 15:40 WBC 28.8 H RBC 2.48 L Hgb 7.8 L D Hct 23.8 L MCV 96 MCH 31.6 MCHC 32.9 RDW 14.1 H Plt Count 182 Seg Neutrophils % Not Reportable Carbonic Acid HCO3/H2CO3 Ratio ABG pH ABG pCO2 ABG pO2 ABG HCO3 ABG O2 Saturation ABG Base Excess FiO2 Sodium Potassium Chloride Carbon Dioxide Anion Gap BUN Creatinine Est GFR ( Amer) Glucose Lactic Acid 5.4 H Calcium Total Bilirubin AST Alkaline Phosphatase Total Protein Albumin 02/01/20 02/12/20 02/12/20 08:17 14:22 15:40 Creatine Kinase 112 Troponin I 0.057 0.060 Impressions: Chest X-Ray 02/12/20 00:00 IMPRESSION: Bilateral pneumonia not significantly changed. Assessment and Plan - Diagnosis (1) Acute respiratory failure with hypoxia Is this a current diagnosis for this admission?: Yes Plan: Secondary to COVID-19 infection. At this point, patient is dealing with lung damage from COVID 19 [place]a. Worsened hypoxia now requiring cpap 100%/8 He remains a DNR/DNI. (2) Pneumonia due to COVID-19 virus Is this a current diagnosis for this admission?: Yes Plan: COVID positive on rapid Covid test done by EMS. Received ivermectin x2 doses Continue Iv Solu-medrol Vitamin C, vitamin D, zinc supplementation Now having evidence of multiorgan system failure from his PNA infection, hypoxia and hypotension. Family brought up to speed about developments and poor prognosis at this point and will deliberate goals of care. Remains dnr/dni (3) Hypotension Qualifiers: Hypotension type: hypotension due to hypovolemia Qualified Code(s): I95.89 - Other hypotension; E86.1 - Hypovolemia Is this a current diagnosis for this admission?: Yes Plan: Likely hypovolemic. received iv boluses. Continue IVF. Monitor labs and urine output. Monitor for evidence of bleeding. (4) Anemia Qualifiers: Anemia type: unspecified type Qualified Code(s): D64.9 - Anemia, unspecified Is this a current diagnosis for this admission?: Yes Plan: Hb trending down. Nurses nor myself have not noted any hematemesis/ hematuria/melena/hematochezia. May need to hold lovenox depending on troponin trend. Type & screen. PPI IV. Repeat CBC. Will check stat CTA Abd/pelvis. He will not survive endoscopic evaluation given his degree of hypoxia. (5) Acute metabolic encephalopathy Is this a current diagnosis for this admission?: Yes Plan: acute encephalopathy actually worse today. Lethargic. Address hypotension and hypoxia. Poor prognosis. May be heading towards comfort measures at this point. (6) Elevated troponin Is this a current diagnosis for this admission?: Yes Plan: EKG showing new T wave inversions in lateral leads. Troponin of 0.057--0.06. Likely type II PA from demand ischemia in setting of hypotension. Received a dose of aspirin. Has been on therapeutic lovenox for several days now. BNP is normal Stat echo (7) Leukocytosis Qualifiers: Leukocytosis type: unspecified Qualified Code(s): D72.829 - Elevated white blood cell count, unspecified Is this a current diagnosis for this admission?: Yes Plan: Continues to worsen. 2/2 COVID+ steroids or new occult infection LLQ is quite tender. Check CT A/P - Empiric abx and blood cx (8) Lactic acidosis Is this a current diagnosis for this admission?: Yes Plan: Secondary to hypotension today. Dehydrated. Seems to be having multiorgan failure with Acute renal failure - prerenal, lactic acidosis, worsening encephalopathy, troponin elevation with new EKG changes. Will repeat lactic acid. Chest x-ray similar to prior showing interstitial pneumonia with no consolidation. Urinalysis yesterday was negative for infec tion. Obtain blood cultures. empiric abx (9) Malnutrition Qualifiers: Malnutrition type: protein-calorie malnutrition Protein-calorie malnu trition severity: moderate Qualified Code(s): E44.0 - Moderate protein-calorie malnutrition Is this a current diagnosis for this admission?: Yes Plan: Has eaten minimal amounts for the past few days due to his COVID-19 infection. Was able to have some Glucerna milkshake earlier this morning but not much and mental state has declined further. His albumin is down to 1.9. We will need to place a Dobbhoff and start enteral nutrition. (10) Prolonged QT interval Is this a current diagnosis for this admission?: Yes Plan: Avoid QT prolonging agents. (11) Diabetes mellitus type 2 in nonobese Is this a current diagnosis for this admission?: Yes Plan: Barely eating. SSI. D/c ankur (12) Hypocalcemia Is this a current diagnosis for this admission?: Yes Plan: Pseudohypocalcemia. Corrected calcium level is 8.8 - Time Time Spent with patient: 25-34 minutes Anticipated Discharge Disposition: unknown Anticipated Discharge Timeframe: unknown
[2020-02-12] MEDS ORDERED: PIPERACILLIN/TAZOBACTAM 3.375 GM VIAL IV ONE (18:48)
--- NOTE | 2020-02-12 19:50 | XCELERA REPORT ---
[address] [address] Transthoracic Echocardiogram Report Name: EVELYNE MUNROE Age: 84 yrs Gender: Male : 1935 Patient Status: Inpatient Patient Location: [address] [place], [place] [address] Study Date: 02/12/2020 05:57 PM History: CLARISA Procedure: A complete two-dimensional transthoracic echocardiogram was performed (2D, M-mode, spectral and color flow Doppler). The study was technically difficult with many images being suboptimal in quality. Reason For Study: ??[place]. trop elevation. TWI in lateral leads Previous Evaluation: No previous studies were available. History: NSETMI. Ordering Physician: JAYRO JENKINS Performed By: Dyan Zhou Interpretation Summary The left ventricular cavity is small. The left ventricle is hyperdynamic. The Ejection Fraction estimate is >70% The right ventricle is normal in size and function. There is a trace amount of mitral regurgitation There is no aortic valve stenosis Tricuspid valve droppler is suboptimal There is no pericardial effusion. MMode/2D Measurements & Calculations RVDd: 2.0 cm LVIDd: 3.3 cm FS: 27.8 % Ao root diam: 2.6 cm IVSd: 1.1 cm LVIDs: 2.4 cm EDV(Teich): 44.4 ml LVPWd: 0.99 cm ESV(Teich): 19.9 ml Ao root area: 5.4 cm2 EF(Teich): 55.2 % Doppler Measurements & Calculations MV E max frantz: MV dec slope: Ao V2 max: LV V1 max P.2 cm/sec 159.5 cm/sec 15.3 mmHg MV A max frantz: 208.0 cm/sec2 Ao max PG: LV V1 max: 69.2 cm/sec MV dec time: 0.26 sec 10.2 mmHg 195.7 cm/sec MV E/A: 0.78 PA V2 max: 81.1 cm/sec PA max P.6 mmHg Left Ventricle The left ventricular cavity is small. There is mild concentric left ventricular hypertrophy. The Ejection Fraction estimate is >70%. The left ventricle is hyperdynamic. Doppler measurements suggest impaired left ventricular relaxation, which is associated with grade I/IV or mild diastolic dysfunction. Right Ventricle The right ventricle is normal in size and function. Atria The right atrium is normal. The left atrium is normal. Mitral Valve The mitral valve is not well visualized. There is a trace amount of mitral regurgitation. Aortic Valve The aortic valve is sclerotic and shows some degree of functional abnormality. The aortic valve is moderately calcified. The aortic valve is not well visualized secondary to technical limitations. There is no aortic valve stenosis. No aortic regurgitation is present. Tricuspid Valve The tricuspid valve is not well visualized secondary to technical limitations. Tricuspid valve droppler is suboptimal. Pulmonic Valve The pulmonic valve is normal in structure and function. There is no pulmonic valvular stenosis. There is a trace or physiologic amount of pulmonic regurgitation. Great Vessels The aortic root is normal size. The inferior vena cava was not well visualized. Effusions There is no pericardial effusion. : JAYRO JENKINS Anil
[2020-02-12 19:55] LABS: ALBUMIN 2.3 g/dL (3.5-5.0); ANION GAP 12 (5-19); BLOOD UREA NITROGEN 79 mg/dL (7-20); CALCIUM 7.3 mg/dL (8.4-10.2); CARBON DIOXIDE 17 mmol/L (22-30); CHLORIDE 112 mmol/L (98-107); GLUCOSE 152 mg/dL (75-110); PHOSPHORUS 7.5 mg/dL (2.5-4.5); POTASSIUM 4.9 mmol/L (3.6-5.0)
[2020-02-12] MEDS ORDERED: RINGERS SOLUTION,LACTATED 1,000 ML IV ONE (20:21)
[2020-02-12 21:45] LABS: HEMATOCRIT 25.6 % (37.9-51.0); HEMOGLOBIN 8.5 g/dL (13.5-17.0); MEAN CORPUSCULAR HEMOGLOBIN 31.8 pg (27.0-33.4); MEAN CORPUSCULAR HGB CONC 33.1 g/dL (32.0-36.0); MEAN CORPUSCULAR VOLUME 96 fl (80-97); PLATELET COUNT 228 10^3/uL (150-450); RED BLOOD COUNT 2.67 10^6/uL (4.35-5.55); RED CELL DISTRIBUTION WIDTH 14.3 % (11.5-14.0)
[2020-02-12] MEDS: PANTOPRAZOLE SODIUM 40 MG VIAL IV SCH (21:59)
[2020-02-12] MEDS: PIPERACILLIN SODIUM/TAZOBACTAM 3.375 GM in NORMAL SALINE 100 ML IV SCH (21:59)
[2020-02-12] MEDS ORDERED: INSULIN GLARGINE,HUM.REC.ANLOG 1,000 UNIT/10 ML VIAL SUBCUT SCH (22:00)
[2020-02-12 22:08] LABS: WHITE BLOOD COUNT 37.8 10^3/uL (4.0-10.5)
--- NOTE | 2020-02-12 23:07 | RADIOLOGY REPORT (SQ) ---
EXAM DESCRIPTION: CTA ABDOMEN/PELVIS W WO CLINICAL HISTORY: 84 years Male; decreased hgb/localized abd pain TECHNIQUE: CT angiogram of the abdomen and pelvis using intravenous contrast.. MIP reconstructions were performed. 3-D volumetric imaging was performed. Abdomen and pelvis All CT scans at this facility use dose modulation, iterative reconstruction, and/or weight based dosing when appropriate to reduce radiation dose to as low as reasonably achievable. COMPARISON: Unenhanced CT scan of the abdomen and pelvis March 08, 2015 FINDINGS: Motion artifact is present throughout the exam and the exam was performed with the patient's arms down by their side. This results in artifact as well. ABDOMEN: Aorta: Abdominal aorta is of normal caliber. There is scattered plaque. No aneurysm or dissection. Celiac: Normal SMA: Normal Left renal: Normal Right renal: Normal DARRIUS: Normal Lower chest: Parenchymal consolidation and opacification is present in the perihilar and lower lobes bilaterally. Air bronchograms are present. Probable trace pleural effusions. No pneumothorax. Heart size is within normal limits. Coronary artery calcifications are present. Liver: The early unenhanced liver is unremarkable. The gallbladder surgically absent. Pancreas:Within normal limits Spleen:Within normal limits Kidneys: There is a large simple cyst projecting exophytically from the lower pole of the left kidney. Symmetric renal enhancement. No hydronephrosis. Adrenal glands:Within normal limits GI: There is diverticula in the colon. No evidence of diverticulitis. No focal bowel wall thickening. No obstruction. appendix:The appendix appears normal. Abdominal wall: Edema is present in the soft tissues of the abdominal wall. Retroperitoneal: There is a large left abdominal wall as well as iliopsoas and iliacus hematoma. No active contrast extravasation is seen into the hematoma. This measures approximately 20.9 x 12.3 x 6.9 cm. It extends in through the left inguinal ligament into the iliopsoas tendon. There is involvement of both the internal oblique muscle of the abdominal wall and the left iliacus muscle. There is inflammation and edema in the associated retroperitoneum. General: No free air. No free fluid. Bones: There is postsurgical change of fusion of the entire visualized thoracic and lumbar spine down through the sacrum. Hardware is intact. There appears to be solid osseous fusion at the level of the posterior elements. No destructive bone lesions. Bladder: Strong catheter is present in the bladder and the bladder is empty Pelvis: No pelvic mass or adenopathy. PELVIS: The common, internal and Iliac arteries are patent bilaterally. There is no contrast extravasation identified. No pseudoaneurysm or dissection. IMPRESSION: Large left-sided retroperitoneal hematoma which involves the iliacus and the left internal oblique muscles of the abdominal wall. This extends from the level of the spleen down through the pelvis. No active contrast extravasation is seen. Diverticulosis. No evidence of diverticulitis. No vascular dissection or aneurysm. No pseudoaneurysm is identified.
--- NOTE | 2020-02-12 23:54 | PDOC H&P ---
History of Present Illness Admission Date/PCP: 02/02/20 07:37 SHARDA MOE PA-C Patient complains of: Shortness of breath, left lower extremity pain and swelling Past Medical History Cardiac Medical History: Denies: Coronary Artery Disease, Myocardial Infarction, Hyperlipidema, Hypertension Pulmonary Medical History: Denies: Asthma, Chronic Obstructive Pulmonary Disease (COPD) Neurological Medical History: Denies: Seizures Endocrine Medical History: Denies: Diabetes Mellitus Type 1, Diabetes Mellitus Type 2, Hyperthyroidism, Hypothyroidism GI Medical History: Denies: Cirrhosis, Crohn's Disease, Hepatitis, Ulcerative Colitis Musculoskeltal Medical History: Reports: Arthritis - Severe spinal arthritis, o steoarthritis of multiple joints Denies: Gout Skin Medical History: Denies: Eczema, Psoriasis Psychiatric Medical History: Denies: Depression Hematology: Denies: Anemia, Bleeding Tendencies Past Surgical History Past Surgical History: Reports: Cholecystectomy, Orthopedic Surgery Social History Lives with: Family Smoking Status: Never Smoker Electronic Cigarette use?: No Frequency of Alcohol Use: Rare Hx Recreational Drug Use: No Drugs: None Hx Prescription Drug Abuse: No - Advance Directive Resuscitation Status: Do Not Resuscitate Family History Family History: Reviewed & Not Pertinent Medication/Allergy Home Medications: Ascorbic Acid [Vitamin C 500 mg Tablet] 500 mg PO DAILY 02/01/20 Diazepam [Valium] 5 mg PO HSP PRN 02/01/20 Ibuprofen [Ibu] 400 mg PO DAILYP PRN 02/01/20 Multivitamin [Multiple Vitamins] 1 each PO DAILY 02/01/20 Oxycodone HCl [Oxy-Ir 5 mg Tablet] 10 mg PO BID 02/01/20 Allergies/Adverse Reactions: No Known Allergies Allergy (Unverified 01/13/19 14:12) Physical Exam Vital Signs: Temp Pulse Resp BP Pulse Ox 97.4 F 85 28 H 126/60 H 87 L 02/12/20 23:17 02/12/20 23:17 02/12/20 23:17 02/12/20 23:17 02/12/20 23:17 Intake & Output 02/11/20 02/12/20 02/13/20 06:59 06:59 06:59 Intake Total 902 562 5843 Output Total 150 400 150 Balance 217 711 4814 Weight 85.3 kg 79.1 kg 79.1 kg Results Laboratory Results: 02/12/20 19:05 02/12/20 19:05 02/12/20 02/12/20 02/12/20 12:20 14:22 14:22 WBC Cancelled RBC Cancelled Hgb Cancelled Hct Cancelled MCV Cancelled MCH Cancelled MCHC Cancelled RDW Cancelled Plt Count Cancelled Seg Neutrophils % Cancelled Carbonic Acid 0.72 L HCO3/H2CO3 Ratio 19:1 ABG pH 7.38 ABG pCO2 23.9 L ABG pO2 62.8 L ABG HCO3 13.9 L ABG O2 Saturation 92.3 L ABG Base Excess -9.8 FiO2 70% Sodium 139.1 Potassium 5.0 Chloride 114 H Carbon Dioxide 15 L Anion Gap 10 BUN 80 H Creatinine 1.74 H Est GFR ( Amer) 46 L Glucose 146 H Lactic Acid Calcium 7.0 L* Phosphorus Total Bilirubin 0.4 AST 95 H Alkaline Phosphatase 42 Total Protein 4.2 L Albumin 1.9 L Blood Type Antibody Screen 02/12/20 02/12/20 02/12/20 14:22 15:40 19:05 WBC 28.8 H RBC 2.48 L Hgb 7.8 L D Hct 23.8 L MCV 96 MCH 31.6 MCHC 32.9 RDW 14.1 H Plt Count 182 Seg Neutrophils % Not Reportable Carbonic Acid HCO3/H2CO3 Ratio ABG pH ABG pCO2 ABG pO2 ABG HCO3 ABG O2 Saturation ABG Base Excess FiO2 Sodium Potassium Chloride Carbon Dioxide Anion Gap BUN Creatinine Est GFR ( Amer) Glucose Lactic Acid 5.4 H 5.4 H Calcium Phosphorus Total Bilirubin AST Alkaline Phosphatase Total Protein Albumin Blood Type Antibody Screen 02/12/20 02/12/20 02/12/20 19:05 19:05 19:05 WBC 37.8 H* RBC 2.67 L Hgb 8.5 L Hct 25.6 L MCV 96 MCH 31.8 MCHC 33.1 RDW 14.3 H Plt Count 228 Seg Neutrophils % Carbonic Acid HCO3/H2CO3 Ratio ABG pH ABG pCO2 ABG pO2 ABG HCO3 ABG O2 Saturation ABG Base Excess FiO2 Sodium 141.1 Potassium 4.9 Chloride 112 H Carbon Dioxide 17 L Anion Gap 12 BUN 79 H Creatinine 1.90 H Est GFR ( Amer) 41 L Glucose 152 H Lactic Acid Calcium 7.3 L Phosphorus 7.5 H Total Bilirubin AST Alkaline Phosphatase Total Protein Albumin 2.3 L Blood Type A POSITIVE Antibody Screen NEGATIVE 02/01/20 02/12/20 02/12/20 08:17 14:22 15:40 Creatine Kinase 112 Troponin I 0.057 0.060 NT-Pro-B Natriuret Pep 02/12/20 02/12/20 15:40 19:05 Creatine Kinase Troponin I 0.053 NT-Pro-B Natriuret Pep 371 Impressions: Chest X-Ray 02/12/20 00:00 IMPRESSION: Bilateral pneumonia not significantly changed. Abdomen/Pelvis CTA 02/12/20 18:49 IMPRESSION: Large left-sided retroperitoneal hematoma which involves the iliacus and the left internal oblique muscles of the abdominal wall. This extends from the level of the spleen down through the pelvis. No active contrast extravasation is seen. Diverticulosis. No evidence of diverticulitis. No vascular dissection or aneurysm. No pseudoaneurysm is identified. Assessment and Plan - Diagnosis (1) Acute respiratory failure with hypoxia Is this a current diagnosis for this admission?: Yes (2) Pneumonia due to COVID-19 virus Is this a current diagnosis for this admission?: Yes (3) Elevated random blood glucose level Is this a current diagnosis for this admission?: Yes
[2020-02-13] MEDS ORDERED: PIPERACILLIN/TAZOBACTAM 3.375 GM VIAL IV SCH
--- NOTE | 2020-02-13 00:08 | Progress Note ---
Provider Note Provider Note: Mr. Law is an 84-year-old male who was admitted on account of acute hypoxic respiratory failure secondary to COVID-19 pneumonia. Patient had a prolonged hospital stay due to progressively worsening shortness of breath with increased work of breathing. Patient was noted to have a drop in his hemoglobin from 10.8 to 7.8 this morning, and as part of the work-up CT abdomen and pelvis was obtained and therapeutic Lovenox was discontinued by daytime hospitalist. I was notified by radiologist who reported that the the CT showed a retroperitoneal hematoma with no sign of active bleeding. Case was discussed with surgery but patient is not a candidate to undergo major surgery due to severe respiratory distress and hypoxia. During my evaluation patient was on a BiPAP with 100% FiO2. He was in respiratory distress using accessory respiratory muscles saturating 88 to 90%. He was unresponsive, unable to follow command and he was noted to have no withdrawal reflexes from noxious stimuli on the left upper and lower extremities but he was able to withdraw on the right side. Stat head CT was done and showed atrophy and chronic small vessel ischemic changes but no acute intracranial abnormalities were noted. Patient is not a candidate for TPA due to having retroperitoneal bleeding and the fact that he was on therapeutic anticoagulation few hours earlier. CBC was done and was significant for marked increased leukocytosis but hemoglobin stayed stable. Lactic acid level was elevated at 11.6. Family was called and updated about patient's status and informed his daughter about the decline in his condition. His daughter expressed her desire for continued treatment of acute medical condition except for aggressive interventions like intubation or CPR. Patient was on Zosyn and vancomycin was added for broad coverage which was renally dosed. He was continued on IV hydration. And repeat CBC, lactic acid level and BMP were ordered for the morning.
--- NOTE | 2020-02-13 00:47 | RADIOLOGY REPORT (SQ) ---
CT head without contrast on 02/13/2020 at 12:17 AM CLINICAL INDICATION: Left-sided neurologic deficits TECHNIQUE: Multiple axial images are obtained throughout the head without the administration of contrast. This exam was performed according to our departmental dose-optimization program, which includes automated exposure control, adjustment of the mA and/or kV according to patient size and/or use of iterative reconstruction technique. Total DLP is 1010.61 mGy*cm. COMPARISON: 01/11/2019 FINDINGS: There is generalized cerebral atrophy. There is low density in the periventricular white matter consistent with chronic small vessel ischemic changes. There is no hydrocephalus. There is no hemorrhage. There are no abnormal extra-axial fluid collections. There is no mass, mass effect or midline shift. There is no CT evidence of acute infarct. No bony abnormality is noted. IMPRESSION: Atrophy and chronic small vessel ischemic changes with no acute intracranial abnormality.
[2020-02-13] MEDS: PIPERACILLIN SODIUM/TAZOBACTAM 3.375 GM in NORMAL SALINE 100 ML IV SCH ×2 (00:51→05:09)
[2020-02-13] MEDS ORDERED: IPRATROPIUM/ALBUTEROL 0.5-2.5 MG/3 ML AMPUL NEB ONE (01:00)
[2020-02-13 01:12] LABS: HEMATOCRIT 25.4 % (37.9-51.0); HEMOGLOBIN 8.1 g/dL (13.5-17.0); MEAN CORPUSCULAR HEMOGLOBIN 31.2 pg (27.0-33.4); MEAN CORPUSCULAR HGB CONC 32.1 g/dL (32.0-36.0); MEAN CORPUSCULAR VOLUME 97 fl (80-97); PLATELET COUNT 241 10^3/uL (150-450); RED BLOOD COUNT 2.61 10^6/uL (4.35-5.55); RED CELL DISTRIBUTION WIDTH 14.5 % (11.5-14.0)
[2020-02-13 01:39] LABS: WHITE BLOOD COUNT 45.6 10^3/uL (4.0-10.5)
[2020-02-13] MEDS ORDERED: NORMAL SALINE 1000 ML 1,000 ML IV PRN (01:47)
[2020-02-13] MEDS ORDERED: VANCOMYCIN HCL 1,500 MG in DEXTROSE 5%-WATER 250 ML IV ONE (02:00)
[2020-02-13] MEDS ORDERED: VANCOMYCIN HCL INJ 1000 MG VIAL IV PRN (02:00)
[2020-02-13] MEDS ORDERED: VANCOMYCIN HCL INJ 500 MG VIAL ONE (02:03)
--- NOTE | 2020-02-13 02:54 | RADIOLOGY REPORT (SQ) ---
CHEST X-RAY 1 VIEW on 02/13/2020 at 2:18 AM CLINICAL INDICATION: Low oxygen saturation COMPARISON: 02/12/2020 FINDINGS: Extensive posterior fusion hardware is noted in the thoracolumbar spine. A few wires are noted projecting over the chest. There has been mild worsening of bilateral mid and lower lung interstitial and airspace opacities consistent with likely worsening pneumonia and differential diagnosis would include viral infections. Heart is within normal limits for size. IMPRESSION: Mild worsening bilateral lower lung pneumonia.
[2020-02-13 03:14] VITALS: BP 137/70
[2020-02-13] MEDS ORDERED: RINGERS SOLUTION,LACTATED 1,000 ML IV ONE (03:45)
[2020-02-13] MEDS: PANTOPRAZOLE SODIUM 40 MG VIAL IV SCH (05:09)
[2020-02-13 07:01] LABS: INTERNATIONAL RATION (INR) 2.12; PROTHROMBIN TIME 23.7 SEC (11.4-15.4)
[2020-02-13 07:02] LABS: PARTIAL THROMBOPLASTIN TIME 49.1 SEC (23.5-35.8)
[2020-02-13 07:31] LABS: ALBUMIN 2.2 g/dL (3.5-5.0); ALKALINE PHOSPHATASE 76 U/L (38-126); BILIRUBIN,DIRECT 0.6 mg/dL (0.0-0.4); BILIRUBIN,TOTAL 1.1 mg/dL (0.2-1.3); BLOOD UREA NITROGEN 76 mg/dL (7-20); CALCIUM 7.6 mg/dL (8.4-10.2); GLUCOSE 117 mg/dL (75-110); TOTAL PROTEIN 4.7 g/dL (6.3-8.2)
[2020-02-13 07:40] LABS: CHLORIDE 115 mmol/L (98-107)
--- NOTE | 2020-02-13 07:57 | ADVANCED CARE ---
- Diagnosis (1) Acute respiratory failure with hypoxia Diagnosis Current: Yes (2) Pneumonia due to COVID-19 virus Diagnosis Current: Yes (4) Anemia Diagnosis Current: Yes (5) Acute metabolic encephalopathy Diagnosis Current: Yes (13) Retroperitoneal bleed Diagnosis Current: Yes Resuscitation Status: Do Not Resuscitate Discussion: Discussed patient's developments with patient's daughter and family via phone. Discussed patient's does have any worsening hypoxia and his retroperitoneal bleed not amenable to surgery due to the severity of his hypoxia. Lactic acid is worsening. Family opts for comfort measures only at this point. They are coming in to see patient to say their goodbyes.
[2020-02-13 08:00] LABS: ASPARTATE AMINO TRANSFERASE 2248 U/L (17-59)
[2020-02-13 08:04] LABS: CARBON DIOXIDE 9 mmol/L (22-30)
[2020-02-13 08:07] LABS: ANION GAP 21 (5-19)
--- NOTE | 2020-02-13 08:46 | Death Summary ---
Summary Date : 02/13/20 Time of :: 08:07 Autopsy: No Resuscitation Status: Do Not Resuscitate - Final Diagnosis (1) Multiple organ failure Is this a current diagnosis for this admission?: Yes (2) Acute respiratory failure with hypoxia Is this a current diagnosis for this admission?: Yes (3) Pneumonia due to COVID-19 virus Is this a current diagnosis for this admission?: Yes (4) Hypotension Is this a current diagnosis for this admission?: Yes (5) Anemia Is this a current diagnosis for this admission?: Yes (6) Acute metabolic encephalopathy Is this a current diagnosis for this admission?: Yes (7) Elevated troponin Is this a current diagnosis for this admission?: Yes (8) Leukocytosis Is this a current diagnosis for this admission?: Yes (9) Lactic acidosis Is this a current diagnosis for this admission?: Yes (10) Malnutrition Is this a current diagnosis for this admission?: Yes (11) Prolonged QT interval Is this a current diagnosis for this admission?: Yes (12) Diabetes mellitus type 2 in nonobese Is this a current diagnosis for this admission?: Yes (13) Hypocalcemia Is this a current diagnosis for this admission?: Yes (14) Retroperitoneal bleed Is this a current diagnosis for this admission?: Yes Hospital Course:: Patient was admitted to the hospital for treatment of acute hypoxic respiratory failure secondary to COVID-19 pneumonia. He had an extensive stay in the hospital for almost 2 weeks during which he received treatment for COVID-19 pneumonia with antivirals, steroids, vitamins, antibiotics, lovenox amongst others. His inflammatory markers were significantly elevated including ferritin, D-dimer, LDH and CRP. He has been significantly hypoxic and his hypoxia has continued to worsen. His stay was also complicated by delirium, encephalopathy, A. fib with RVR, acute blood loss anemia hemoglobin dropped from 11 to 8 secondary to large spontaneous retroperitoneal bleed not amenable to surgery due to severity of hypoxia. His condition continued to deteriorate with worsening encephalopathy and worsening hypoxemia. His CODE STATUS was confirmed to be DNR/DNI. As patient's hypoxia worsened, he started to go into multiorgan system failure with profound encephalopathy, acute renal failure, lactic acidosis, demand cardiac ischemia with elevated troponin and ultimately culminated in his demise. Patient was made comfort care this morning by family and at 08:07am. I have contacted patient's daughter Ev Coyne who was with patient's . Condolences offered. They do not autopsy.
[2020-02-16 11:38] LABS: PATH REVIEW PATHOLOGIST REVIEWED
== END 2020-02-13 09:37 | DRG 177 ==
LOC: ER 23:07 → EH 02-01 04:57 → 3N 02-01 05:47 → OBSVTOIN 02-02 07:37
PROVIDERS: ADMIT Student in an Organized Health Care Education/Training Program; ATTEND Internal Medicine
PROC: 5A09557 Assistance with Respiratory Ventilation, Greater than 96 Consecutive Hours, Continuous Positive Airway Pressure (ICD-10-PCS; principal; 2020-02-02)
PROC: B24BZZ4 Ultrasonography of Heart with Aorta, Transesophageal (ICD-10-PCS; 2020-02-12)
DX: U07.1 COVID-19 (principal); J96.01 Acute respiratory failure with hypoxia; J12.82 Pneumonia due to coronavirus disease 2019; G93.41 Metabolic encephalopathy; K66.1 Hemoperitoneum; E87.2 Acidosis; D62 Acute posthemorrhagic anemia; E44.0 Moderate protein-calorie malnutrition; E11.65 Type 2 diabetes mellitus with hyperglycemia; Z78.1 Physical restraint status; I95.9 Hypotension, unspecified; R77.8 Other specified abnormalities of plasma proteins; R94.31 Abnormal electrocardiogram [ECG] [EKG]; R79.1 Abnormal coagulation profile; E83.51 Hypocalcemia; G89.29 Other chronic pain; M54.9 Dorsalgia, unspecified; R41.0 Disorientation, unspecified; Z66 Do not resuscitate; T38.0X5A Adverse effect of glucocorticoids and synthetic analogues, initial encounter; Y92.9 Unspecified place or not applicable; E86.0 Dehydration; D72.829 Elevated white blood cell count, unspecified; I48.91 Unspecified atrial fibrillation; R45.1 Restlessness and agitation; Z79.899 Other long term (current) drug therapy; Z79.891 Long term (current) use of opiate analgesic
CPT/HCPCS: 36415; 36600; 70450; 71045; 74174; 80048; 80053; 80069; 81001; 82550; 82728; 82803; 82962; 83036; 83605; 83615; 83735; 83880; 84484; 85025; 85027; 85379; 85610; 85730; 86140; 86850; 86900; 86901; 87040; 87077; 87150; 87186; 93005; 93010; 93306; 94640; 94660; 96361; 96365; 96366; 96375; 99285; C9113; G0378; J1100; J1160; J1630; J1650; J1815; J2543; J2920; J3370; J3480; J3486; J3490; J7030; J7050; J7060; J7120; J8540